=== PATIENT | female | born 1950 | race Caucasian/White ===

== ENCOUNTER → 2016-09-05 | Outpatient (CLI) | payer OTHER ==
[~2016-09-05] MED LIST: ASPCH81X PO; ASTN; ERGO1CAP35 PO; FLX10 PO; IBUP-1105 PO; IMT100 PO; LORA-741 PO; MELO7.5T5 PO; TRAM-10 PO; TRAZ-119 PO; VENL225T27 PO
== END | disposition home or self-care (01) ==
LOC: C.LABBFT 12:13
PROVIDERS: ATTEND Psychiatry & Neurology Neurology
DX: R41.3 Other amnesia (principal)

== ENCOUNTER → 2016-09-16 | Outpatient (CLI) | payer OTHER ==
[~2016-09-16] MED LIST changes: -TRAZ-119 PO; +TRAZ1TAB16 PO
--- NOTE | 2016-09-18 12:34 | MAMMOGRAPHY REPORT ---
BILATERAL DIGITAL SCREENING MAMMOGRAM TOMOSYNTHESIS WITH CAD: 09/16/2016 CLINICAL HISTORY: Routine screening. Patient has no complaints. TECHNIQUE: Breast tomosynthesis in addition to standard 2D mammography was performed. Current study was also evaluated with a Computer Aided Detection (CAD) system. COMPARISON: Comparison is made to exams dated: 09/14/2015 mammogram - [facility], mammogram, 07/21/2013 mammogram, 07/15/2012 mammogram, 06/21/2011 mammogram, and 07/31/2010 mammogra m - [facility]. BREAST COMPOSITION: There are scattered areas of fibroglandular density in both breasts. FINDINGS: There are 2 stable metallic biopsy markers in the right breast. Scattered and grouped leonid ign-appearing microcalcifications are stable bilaterally. No new suspicious mass, architectural dist ortion or cluster of suspicious microcalcifications is seen. IMPRESSION: ACR BI-RADS CATEGORY 1: NEGATIVE There is no mammographic evidence of malignancy. A 1 year screening mammogram is recommended. The pa tient will receive written notification of the results. Approximately 10% of breast cancers are not detected with mammography. A negative mammographic report should not delay biopsy if a clinically suggestive mass is present. Adry Church M.D. ay/:09/16/2016 16:39:38 Analytics Lead: Bambi GONZALEZ)(Pauly)(BD), [facility] letter sent: Normal 1/2 BI-RADS Code: ACR BI-RADS Category 1: Negative
== END | disposition home or self-care (01) ==
LOC: C.MAMM 11:53
PROVIDERS: ATTEND Nurse Practitioner
DX: Z12.31 Encounter for screening mammogram for malignant neoplasm of breast (principal)

== ENCOUNTER → 2016-09-30 | Outpatient (CLI) | payer OTHER ==
--- NOTE | 2016-09-30 10:56 | DIAGNOSTIC IMAGING REPORT ---
RIGHT KNEE 4 OR MORE CLINICAL HISTORY: 66 years-old Female presenting with RIGHT KNEE PAIN Right. TECHNIQUE: Bilateral frontal standing views of the knees and frontal, lateral, and sunrise views of the right knee were obtained. COMPARISON: Correlation made to radiographs of the left knee from March 2015. FINDINGS: On standing, joint spaces are preserved. No malalignment. Tiny ossification along the medial joint space in the left knee may represent chondrocalcinosis of the medial meniscus. No significant osteophytosis or subchondral sclerosis. No significant abnormality of the patellofemoral articulation. No acute fracture. Soft tissues within normal limits. IMPRESSION: 1. No significant abnormality. No acute osseous injury. Electronically signed by: Gera Boone M.D. 09/30/2016 10:55 AM Dictated Date/Time: 09/30/2016 10:52 AM
== END | disposition home or self-care (01) ==
LOC: C.RDSM 10:30
PROVIDERS: ATTEND Internal Medicine
DX: M25.561 Pain in right knee (principal)

== ENCOUNTER → 2017-01-23 | Outpatient (CLI) | payer OTHER ==
[~2017-01-23] VITALS: Ht 149.9 cm; Wt 76.2 kg
[~2017-01-23] MED LIST changes: +TRAZ-119 PO; -TRAZ1TAB16 PO
[2017-01-23 16:01] VITALS: BP 139/81; PULSE 102; Ht 149.9 cm; Wt 76.2 kg
== END | disposition home or self-care (01) ==
LOC: C.NEUR 15:20
PROVIDERS: ATTEND Internal Medicine Pulmonary Disease
DX: G47.33 Obstructive sleep apnea (adult) (pediatric) (principal)

== ENCOUNTER → 2017-02-16 | Outpatient (CLI) | payer OTHER ==
--- NOTE | 2017-02-17 06:11 | PAP/PSG TECHNICIAN REPORT ---
[facility] Area Operations Manager Polysomnogram Report Study name: None Report date: 02/17/2017 Study date: 02/16/2017 Referring Physician: Dr. Pierre Name: DOROTHEA BLEVINS Interpreting Physician: Juan Diego Pierre D.O. Date of : 1950 Area Operations Manager: Madan Rolle RPSGT. Sex: Female Age: 66 StudyType: PSG Weight: 167 lbs 15.5 inches Height: 66 years, Height 4' 11" Neck Circum: BMI: 33.73 Medications: TRAZODONE HCL 50 MG, VENLAFAXINE HCL ER 150 MG, SUMATRIPTAN SUCCINATE 100 MG, CARBAMAZEPINE 100 MG, PREDNISONE 20 MG, OXYBUTYNIN CHLORIDE ER 10 MG, CLINDAMYCIN HCL 150 MG Patient History PATIENT HAS HISTORY OF MIRANDA, SNORING, DAYTIME SLEEPINESS AND RESTLESSNESS. SHE WAS DIAGNOSED WITH MIRANDA AROUND 6 YEARS AGO AND SHE WAS ON CPAP FOR ABOUT 2 YEARS. SHE QUIR USING IT BECAUSE IT BECAME A HASSLE. SHE IS HERE TODAY FOR AN EVALUATION FOR MIRANDA. ESS = 11 RM 7 Parameters Monitored NPSG: E1-M2, E2-M1, Fp1-M2, Fp2-M1, F3-M2, F4-M2, F4-M1, C3-M2, C4-M2, C4-M1, O1-M2, O2-M2, O2-M1, T3-M2, T4-M1, P3-M2, P4-M1, CHIN1, CHIN2, HR, EKG, Legs, PFLOW, SNOR, FLOW, CFLOW, Tidal Volume, THOR, ABDO, SpO2, PLTH, CPRESS, ETCO2 Wave, ETCO2, pH Sleep Architecture Sleep Stages Time at Lights Off 10:45:00 PM STAGES Time (min.) TST (%) Time at Lights On 5:43:00 AM Wake 151.0 -- Total Recording Time (TRT) 419.00 min. N1 21.5 8 Total Sleep Period (TSP) 358.5 min. N2 210.0 79 Total Sleep Time (TST) 267.0min. N3 35.5 13 Awake Time 152.0 min. REM 0.0 0 Wake after Sleep Onset 93.0 min. Sleep Efficiency (SE) 64 % Sleep Onset Latency (LILA) 58.0 min. Number of Stage 1 Shifts None Awakenings 16 Stage Changes 49 Number of REM periods N/A REM 0.0 0 REM Latency NONE min. NREM 267.0 100 Body Position Analysis Supine Right Left Side Prone Vertical Total Sleep Time (min.) 79.7 101.5 132.0 233.50 0.0 0.0 Total Sleep Time (%) 13% 38% 49% 87 0% N/A% Total Sleep Time REM (min.) 0.0 0.0 0.0 None 0.0 0.0 Total Sleep Time NREM (min.) 33.5 101.5 132.0 None 0.0 0.0 Intermittent Wake (min.) 46.2 28.4 76.4 None 0.0 0.0 Total Sleep Period (%) 19% None None None None None Arousals Myoclonus (PLM) * Events Count Index Events Count Index Spontaneous 23 5 Events Awake (PLMW) 34 13.5 Respiratory 0 0.0 Events Asleep w/ Arousal (PLMA) 0 0.0 PLM 0 0 Events Asleep w/o Arousal (PLMS) 1 0.2 Snoring 2 0 Total Asleep 1 0.2 Total 25 6 Total 35 5 Respiratory Analysis * CA OA MA CH H RERA Total Count 1 0 0 0 2 0 3 Index 0.2 0.0 0.0 0 0.4 0 0.7 Mean Duration 17.8 0.0 0.0 0.00 16.6 0.0 17.0 Longest Duration 17.8 0.0 0.0 0.00 0.0 0.0 21.7 Respiratory Event Summary Total Supine ~Supine Right Left Prone REM NREM Apneas Count 1 1 0 0 0 N/A N/A 1 Index 0.2 2 0 0.0 0.0 N/A N/A 0 Hypopneas (4% Desat) Count 2 2 0 0 0 N/A N/A 2 Index 0.4 3.6 0 0.0 0.0 N/A N/A 0.4 Apneas & All Hypopneas Count 3 3 0 0 0 N/A N/A 3 Index 0.7 5 0 0 0 N/A N/A 0.7 Respiratory Events (Hydraulic Jack Mechanic+All Hyp+RERA) Count 3 3 0 0 0 N/A N/A 3 Index 0.7 5 0 0.0 0.0 N/A N/A 0.7 Respiratory Related Arousal Count 0 3 0 0 0 N/A N/A 0 Index 0.0 0 0 0 0 N/A N/A 0 Snoring Analysis Supine Right Left Prone REM NREM Total Snore duration 1.5 min Snores count 64 3 22 N/A N/A 89 89 Snore mean duration 1.0 Sec Snores index 115 2 10 N/A N/A 20.0 20.0 TST with snoring (%) 0.6% Desaturation Event Summary: Minimum %SpO2 Event Count Mean/Min/Max Duration(sec.) Desaturation Index % Time In Bed > 90 15 36.6 / 16.8 / 56.5 3.5 62.2 86 - 90 2 43.8 / 31.0 / 56.5 0.8 37.8 81 - 85 0 N/A 0.0 0.0 76 - 80 0 N/A 0.0 0.0 71 - 75 0 N/A 0.0 0.0 66 - 70 0 N/A 0.0 0.0 61 - 65 0 N/A 0.0 0.0 56 - 60 0 N/A 0.0 0.0 51 - 55 0 N/A 0.0 0.0 < 50 0 N/A 0.0 0.0 Total REM NREM Awake <50% 0.0 min. 0.0 min. 0.0 min. 0.0 min. 51 - 60% 0.0 min. 0.0 min. 0.0 min. 0.0 min. 61 - 70% 0.0 min. 0.0 min. 0.0 min. 0.0 min. 71 - 80% 0.0 min. 0.0 min. 0.0 min. 0.0 min. 81 - 90% 154.2 min. 0.0 min. 121.6 min. 32.7 min. 91 - 100% 254.3 min. 0.0 min. 145.4 min. 108.8 min. Average 91 0 91 92 Minimum SpO2 86 N/A 87 86 Desaturation Event Index 2.2 0.0 0.2 5.6 # Desat. Events below 89% 3 N/A 0 3 Time(%) with Saturation below 89% 3.8 0.0 3.2 0.7 Time(min.) with Saturation below 89% 15.6 0.0 13.0 2.7 Time (mins) REM (mins) NREM (mins) % of TST SpO2 Below 90% 1 N/A N1 19.7 SpO2 Below 88% 1 0 0 0 Heart Rate Analysis Min (bpm) Max (bpm) Average (bpm) Awake 59 84 70 NREM 58 77 67 REM N/A N/A N/A Overall 58 77 67 Supplemental O2 Values Minimum O2 level: None Value Start Time End Time Area Operations Manager Comments Ms. Blevins slept in the right, left and supine positions. No cardiac arrhythmia noted. Leg movements noted. No bruxism noted. Snoring was noted and scored as a 2 on a scale of 1 through 5. (0=no snoring, 5=snoring loud enough to be heard through a closed door or down the finn way) Ms. Blevins awoke to use the restroom 2 times during the night. Ms. Blevins stated I slept as well as I do when I am in my own bed. The final report will be interpreted and signed by a sleep physician. The completed physician report will then be placed in the patient medical record. Therapy (cm H2O) 0 TIB (min.) 418.0 TST (min.) 267.0 Sleep Onset (min.) 58.0 REM Onset From Sleep (min.) NONE Sleep Efficiency % 64 Wakefulness (%) 36 Wakefulness (min.) 152.0 NREM 1 (%) 8 NREM 1 (min.) 21.5 NREM 2 (%) 79 NREM 2 (min.) 210.0 NREM 3 (%) 13 NREM 3 (min.) 35.5 REM (%) 0 REM (min.) 0.0 # Arousals 25 Arousal Index 6 # Snore 89 Snore Index 20.0 AHI 0.7 AHI Supine 5 AHI Non-Supine 0 NREM AHI 0.7 REM AHI N/A RDI 0.7 # Obstructive Apnea 0 # Central Apnea 1 # Mixed Apnea 0 # Hypopneas 2 RERAs 0 Total Respiratory Events 3 Time Below SpO2 89% (min.) 13.0 Mean NREM SpO2 (%) 91 Mean REM SpO2 (%) N/A Mean Sleep SpO2 (%) 91 Min NREM SpO2 (%) 87 Min REM SpO2 (%) N/A Position Supine (min.) 79.7 Position Non-supine (min.) 233.5 LM Index Sleep 0.2 LM Index NREM 0.2 LM Index REM N/A Mean Heart Rate (bpm) 67 Min Heart Rate (bpm) 58
--- NOTE | 2017-02-19 17:56 | Sleep Study ---
Sleep Study Report Date of Service: 02/16/2017 Sleep Study Report Clinical data: The patient is a 66-year-old female who had a history of sleep apnea in the past. She was on nasal CPAP for 2 years but she never got comfortable with it. She has snoring, disturbed nocturnal sleep, and difficulty with concentration. Her [place] score is 4 out of a possible 24. She also has a history of a nocturnal eating disorder, eating food at night and having no recall of doing so. This was an in-lab overnight polysomnography. Sleep architecture: The total sleep period was 385.5 minutes. The total sleep time was 267 minutes. The sleep efficiency was moderately reduced to 64 percent. The sleep latency was prolonged to 58 minutes. Wake after sleep onset was increased to 93 minutes. Sleep consisted of stage N1 8 percent, stage N2 79 percent, stage N3 13 percent , stage REM 0 percent. Arousal data: The patient had a total of 25 arousals including 23 spontaneous arousals and 2 snoring arousals. The arousal index is 6. PLM data: The patient had only 1 periodic limb movement of sleep for a PLM index of 0.2. There were 0 arousals. EKG: The underlying cardiac rhythm was normal sinus. The cardiac rates 58-77 beats per minute. No cardiac arrhythmia was noted. Respiratory data: Patient had a total of 3 respiratory events including 1 central apnea and 2 hypopneas. The apnea was 17.8 seconds in length. The mean duration of the hypopneas was 16.6 seconds. Hypopneas were scored according to the 4 percent desaturation rule. The apnea-hypopnea index was normal at 0.7. This would suggest no significant sleep apnea. Oximetry data: The average saturation for the night was 91 percent. The minimum saturation was 86 percent. There was a total of 15.6 minutes with saturations less than 89 percent. Lumber Stacker Operator comments: The patient slept in the right, left, and supine positions. No cardiac arrhythmia noted. No bruxism noted. Snoring was noted and scored as a 2 on a scale of 1 through 5. Impressions: 1. Primary snoring Comments: Patient has a history of sleep apnea in the past. She did not have any significant sleep apnea during this overnight polysomnography. She did have a moderately decreased sleep efficiency related to a markedly prolonged sleep onset and she had an episode of wake during the night lasting from 1:30 a.m. until 2:33 a.m.. Otherwise her sleep was fairly well consolidated. It is notable she had an increase in stage N2 sleep and there was no REM sleep at all. It may be notable that the patient does take venlafaxine which can suppress REM sleep. The cause of the patient's symptoms are unknown. She does have a history of long-term insomnia. It is unknown if this is related to any underlying anxiety or depression which is given in her history. Recommendations: 1. The patient should continue with her weight loss efforts. 2. The patient should have a more regular sleep-wake schedule. Her sleep habits and sleep hygiene are suboptimal. She has a variable time of going to bed. It is suggested that she have a regular schedule and allowing approximately 8 hours of sleep time. 3. It is suggested that the patient avoid sleeping in the supine position. 4. She does not need any specific therapy for sleep apnea in light of the fact she did not have any significant sleep apnea during the study. Copies To 1: Juan Diego Pierre DO; Gretchen Howard, C.R.N.P.; Delfina Berg M.D.
== END | disposition home or self-care (01) ==
LOC: C.NEUR 20:00
PROVIDERS: ATTEND Internal Medicine Pulmonary Disease
DX: G47.33 Obstructive sleep apnea (adult) (pediatric) (principal)

== ENCOUNTER → 2017-02-19 | Outpatient (CLI) | payer OTHER ==
--- NOTE | 2017-02-19 09:43 | DIAGNOSTIC IMAGING REPORT ---
R KNEE 3 VIEWS HISTORY: 66 years-old Female BILATERAL KNEE PAIN S/P FALL acute bilateral knee pain status post fall COMPARISON: Knee radiographs 09/30/2016 TECHNIQUE: Stating AP view of the bilateral knees with sunrise, tunnel and lateral views. FINDINGS: RIGHT: There is mild medial and lateral with mild to moderate patellofemoral osteoarthritis. There is no acute fracture or dislocation identified. No osteochondral defect. Trace knee joint effusion suspected. LEFT: Trace joint effusion suspected. Tiny ossification adjacent to the medial femoral condyles again seen suspicious for possible chondrocalcinosis. No acute fracture or dislocation. There is mild medial and lateral with mild to moderate patellofemoral osteoarthritis. IMPRESSION: 1. No acute fracture or dislocation identified within either knee. 2. 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 3. Trace joint effusions. The above report was generated using voice recognition software. It may contain grammatical, syntax or spelling errors. Electronically signed by: Jovanni Haynes M.D. 02/19/2017 9:42 AM Dictated Date/Time: 02/19/2017 9:39 AM
== END | disposition home or self-care (01) ==
LOC: C.RDSM 12:58
PROVIDERS: ATTEND Internal Medicine
DX: M25.561 Pain in right knee (principal); M25.562 Pain in left knee

== ENCOUNTER → 2017-02-25 | Outpatient (CLI) | payer OTHER ==
--- NOTE | 2017-02-25 13:00 | DIAGNOSTIC IMAGING REPORT ---
L-SPINE MIN 4 VIEWS ROUTINE HISTORY: 66 years-old Female R26.9 Gait [id number] Low back pain acute low back pain COMPARISON: Lumbar spine radiographs 02/16/2015 TECHNIQUE: 5 views of the lumbar spine FINDINGS: 5 nonrib-bearing lumbar type vertebral segments. No spondylolysis or spondylolisthesis. 40% anterior endplate compression deformity of the T11 vertebral body is noted without significant retropulsion identified. This is unchanged from comparison compatible with chronic injury. No acute compression deformity or subluxation. Mild intervertebral disc space narrowing at L3-L4, L4-L5 and L5-S1 with mild to moderate facet arthrosis and mild endplate spurring. IMPRESSION: 1. Remote 40% anterior endplate compression deformity of the T11 vertebral body appears unchanged from comparison study. 2. No acute fracture or subluxation. 3. Degenerative changes of the lower lumbar spine as above. The above report was generated using voice recognition software. It may contain grammatical, syntax or spelling errors. Electronically signed by: Jovanni Haynes M.D. 02/25/2017 12:59 PM Dictated Date/Time: 02/25/2017 12:57 PM
== END | disposition home or self-care (01) ==
LOC: C.RAD 12:18
PROVIDERS: ATTEND Psychiatry & Neurology Neurology
DX: M54.5 Low back pain (principal); R26.9 Unspecified abnormalities of gait and mobility

== ENCOUNTER → 2017-02-28 | Outpatient (CLI) | payer OTHER ==
[2017-02-28 17:10] LABS: HEMATOCRIT 38.1 % (37-47); MEAN CELL VOLUME 90.3 fL (80-100); MEAN CORPUSCULAR HEMOGLOBIN 29.1 pg (25-34); MEAN CORPUSCULAR HGB CONC 32.3 g/dl (32-36); MEAN PLATELET VOLUME 10.5 fL (7.4-10.4); PLATELET COUNT 298 K/uL (130-400); RED BLOOD COUNT 4.22 M/uL (4.2-5.4); WHITE BLOOD COUNT 4.14 K/uL (4.8-10.8)
[2017-02-28 17:11] LABS: ALT/SGPT 20 U/L (12-78); BLOOD UREA NITROGEN 27 mg/dl (7-18); BUN/CREATININE RATIO 32.9 (10-20); CALCIUM 8.9 mg/dl (8.5-10.1); CARBON DIOXIDE 22 mmol/L (21-32); CHLORIDE 110 mmol/L (98-107); CHOLESTEROL 151 mg/dl (0-200); CREATININE 0.81 mg/dl (0.60-1.20); GLUCOSE 98 mg/dl (70-99); POTASSIUM 3.9 mmol/L (3.5-5.1); SODIUM 141 mmol/L (136-145)
[2017-02-28 17:14] LABS: ALB/GLOB RATIO 1.1 (0.9-2); ALKALINE PHOSPHATASE 64 U/L (45-117); AST/SGOT 14 U/L (15-37); CHOLESTEROL/HDL RATIO 1.8; HDL CHOLESTEROL 83 mg/dl; LDL CHOLESTEROL CALCULATED 59 mg/dl; TRIGLYCERIDES 46 mg/dl (0-150); VERY LOW DENSITY LIPOPROT CALC 9 mg/dl
[2017-03-01 06:38] LABS: ESTIMATED AVERAGE GLUCOSE 117 mg/dl; HA1C FLAG Normal (Normal)
== END | disposition home or self-care (01) ==
LOC: C.LABBFT 11:41
PROVIDERS: ATTEND Nurse Practitioner
DX: E78.5 Hyperlipidemia, unspecified (principal); E55.9 Vitamin D deficiency, unspecified; T81.89XD Other complications of procedures, not elsewhere classified, subsequent encounter; X58.XXXD Exposure to other specified factors, subsequent encounter

== ENCOUNTER → 2017-04-25 | Outpatient (CLI) | payer OTHER ==
[~2017-04-25] MED LIST changes: +EFFSR150 PO; +FLUT0.15 INH; +LMC25 PO; +OPTIRAY 320 IV PRN
--- NOTE | 2017-04-25 15:31 | DIAGNOSTIC IMAGING REPORT ---
(CHEST FOR PE) ANGIO WITH CLINICAL HISTORY: 67 years-old Female presenting with chest pain, shortness of breath, chest tightness. TECHNIQUE: Multidetector CT angiography of the chest was performed after administration of intravenous contrast. 3-D volumetric and/or maximum intensity projection (MIP) images were subsequently reconstructed for review. IV contrast: 93 mL of Optiray 320. A dose lowering technique was used consistent with the principles of ALARA (as low as reasonably achievable). COMPARISON: None. CT DOSE (mGy.cm): The estimated cumulative dose is 383.12 mGycm. FINDINGS: Onion Farmer topogram: Unremarkable. Pulmonary vasculature: The study is adequate for assessment of the pulmonary vascular tree. No filling defect within the pulmonary arteries to suggest embolus. Main pulmonary artery is not enlarged and contains gas likely from injection. No flattening of the interventricular septum. No intracardiac filling defect. No reflux of contrast into the hepatic veins. Remaining chest: On soft tissue windows, normal thyroid and thoracic inlet. No axillary, supraclavicular, hilar, or mediastinal lymphadenopathy. Normal aorta. Normal heart size. No pericardial or pleural effusion. Few subcentimeter lesion suspected in the liver, indeterminate but possibly hepatic cysts or hamartomas. On lung windows, minimal dependent changes likely atelectasis. Mosaic attenuation noted at the lung bases possibly indicating small airways disease. Mild bronchial wall thickening predominantly in the lower lobes. No other focal nodule or infiltrate. Airways patent. On bone windows, normal osseous structures. IMPRESSION: 1. No evidence of pulmonary embolus. No acute intrathoracic pathology. 2. Small airways disease may be present. Electronically signed by: Gera Boone M.D. 04/25/2017 3:30 PM Dictated Date/Time: 04/25/2017 3:25 PM
== END | disposition home or self-care (01) ==
LOC: C.CTS 14:38
PROVIDERS: ATTEND Physician Assistant Medical
DX: R06.02 Shortness of breath (principal)

== ENCOUNTER 2017-04-28 19:28 | Emergency (ER) | payer OTHER ==
[~2017-04-28] VITALS: Ht 149.9 cm; Wt 74.8 kg
[~2017-04-28 19:28] MED LIST changes: -EFFSR150 PO; -FLUT0.15 INH; -LMC25 PO
[2017-04-28 20:13] VITALS: TEMP 36.7; Ht 149.9 cm; Wt 74.8 kg
[2017-04-28] MEDS ORDERED: KETOROLAC TROMETHAMINE 30 MG/ML VIAL IV STA (20:46)
[2017-04-28] MEDS ORDERED: FLUT0.15 INH (21:08)
[2017-04-28] MEDS ORDERED: EFFSR150 PO (21:19)
[2017-04-28] MEDS ORDERED: LMC25 PO (21:19)
[2017-04-28] MEDS ORDERED: SODIUM CHLORIDE 0.9% 500ML 500 ML IV STA (21:53)
[2017-04-28 22:05] LABS: BASO % 0.5 %; BASO ABS # 0.03 K/uL (0-0.2); EOS % 2.3 %; EOS ABS # 0.14 K/uL (0-0.5); HEMATOCRIT 42.7 % (37-47); HEMOGLOBIN 14.2 g/dL (12.0-16.0); IG# 0.02 K/uL (0.00-0.02); LYMPH % 24.5 %; MEAN CORPUSCULAR HEMOGLOBIN 29.3 pg (25-34); MEAN CORPUSCULAR HGB CONC 33.3 g/dl (32-36); MEAN PLATELET VOLUME 9.9 fL (7.4-10.4); MONO % 12.3 %; MONO ABS # 0.75 K/uL (0.11-0.59); NEUT % 60.1 %; NEUT ABS # 3.68 K/uL (1.4-6.5); PLATELET COUNT 290 K/uL (130-400); RED CELL DISTRIBUTION WIDTH CV 12.9 % (11.5-14.5); RED CELL DISTRIBUTION WIDTH SD 41.3 fL (36.4-46.3); WHITE BLOOD COUNT 6.12 K/uL (4.8-10.8)
[2017-04-28 22:21] LABS: PTT PATIENT 25.5 SECONDS (21.0-31.0)
[2017-04-28 22:22] LABS: BLOOD UREA NITROGEN 25 mg/dl (7-18); CALCIUM 9.6 mg/dl (8.5-10.1); CARBON DIOXIDE 28 mmol/L (21-32); CREATININE 0.77 mg/dl (0.60-1.20); GLUCOSE 116 mg/dl (70-99); POTASSIUM 3.6 mmol/L (3.5-5.1); SODIUM 136 mmol/L (136-145)
--- NOTE | 2017-04-28 22:45 | DIAGNOSTIC IMAGING REPORT ---
R VENOUS DOPP LOWER EXT UNILAT HISTORY: 67 years-old Female rle swelling acute swelling of the right lower extremity COMPARISON: CTA of the chest 04/25/2017 TECHNIQUE: Multiple real-time sonographic images of the right lower extremity deep venous structures were obtained assessing grayscale appearance, color and spectral flow FINDINGS: There is normal flow, phasicity, compressibility and augmentation of the right lower extremity deep venous structures. IMPRESSION: No sonographic evidence of deep venous thrombosis. The above report was generated using voice recognition software. It may contain grammatical, syntax or spelling errors. Electronically signed by: Jovanni Haynes M.D. 04/28/2017 10:43 PM Dictated Date/Time: 04/28/2017 10:42 PM
--- NOTE | 2017-04-28 22:50 | DIAGNOSTIC IMAGING REPORT ---
CHEST ONE VIEW PORTABLE HISTORY: 67 years-old Female cp acute atypical chest pain COMPARISON: CTA of the chest 04/25/2017, chest radiograph 02/01/2015 TECHNIQUE: Portable AP view of the chest FINDINGS: Cardiomediastinal and hilar silhouettes are within normal limits. There is no pneumothorax, pleural effusion, focal airspace consolidation or overt pulmonary edema. Linear subsegmental atelectasis/scarring of the left lung base redemonstrated. Bones of the chest appear grossly intact. IMPRESSION: No acute process. The above report was generated using voice recognition software. It may contain grammatical, syntax or spelling errors. Electronically signed by: Jovanni Haynes M.D. 04/28/2017 10:48 PM Dictated Date/Time: 04/28/2017 10:47 PM
--- NOTE | 2017-04-28 22:57 | EMERGENCY ROOM VISIT NOTE ---
History Report prepared by Smita: Franklin Braswell Under the Supervision of: Maryam IveyO. First contact with patient: 20:32 Chief Complaint: LEG PAIN,LEG INJURY Stated Complaint: POSSIBLE BLOOD CLOT, THROBBING, SMALL BLOOD BREAK History of Present Illness The patient is a 67 year old female who presents to the Emergency Room with complaints of constant right leg pain starting around 1600 today. She currently rates her discomfort as a 5/10 in severity. The patient states that the pain is in the back of her calf, and she states that the skin feels hot and felt like it was "dancing". She notes that she is concerned that she may have a DVT. The patient states that she got back from [place] on the . She got a CTA on 04/25/17, and she did not have any PEs. She states that she has not done anything out of the ordinary or lifting anything. She additionally states that she has been having persistent chest pressure since the and is having a dry cough, coarse voice, sore throat, and runny nose. She was evaluated by her primary care doctor for this. Chest pain is reproducible along the anterior chest wall. She notes it feels like a muscle pain. She states that nothing makes the pain better or worse with the exception of when she touches her pushes on her anterior chest, and she denies any diabetes, hypertension, hyperlipidemia, or CAD. Denies any arm or jaw pain. Pt denies headache, change in vision, fevers, shortness of breath, nausea, vomiting, diarrhea, pain with urination, and melena. No previous history of MIs. Source of History: patient Onset: 1600 Position: leg (right) Symptom Intensity: 5/10 Timing: constant Associated Symptoms: + chest pain, No SOB, No nausea, No vomiting Review of Systems See HPI for pertinent positives & negatives. A total of 10 systems reviewed and were otherwise negative. Past Medical & Surgical Medical Problems: (1) History of colon polyps (2) Migraine headache (3) Mitral valve prolapse (4) Sleep apnea Surgical Problems: (1) History of uterine fibroid (2) Status post colonoscopy (3) Status post tubal ligation Family History Cervical cancer SISTER Diabetes mellitus FATHER Heart disease FATHER Hypertension FATHER Social History Smoking Status: Never Smoker Alcohol Use: occasionally Marital Status: single, Housing Status: lives alone Occupation Status: retired Current/Historical Medications Scheduled Fluticasone Propionate (Nasal) (Flonase Allergy Relief), 1-2 SPRAYS INH BID Lamotrigine (Lamotrigine), 25 MG PO HS Lorazepam (Ativan), 0.5 MG PO HS Meloxicam (Mobic), 7.5 MG PO DAILY Sumatriptan Succinate (Imitrex), 100 MG PO PRN Trazodone Hcl (Desyrel), 50-100 MG PO HS Venlafaxine Hcl (Effexor Extended Rel), 150 MG PO DAILY Allergies Coded Allergies: Sulfa Antibiotics (Verified Allergy, Severe, HIVES/SOB, 04/28/17) Amoxicillin (Verified Allergy, Intermediate, HIVES, 04/28/17) Penicillins (Verified Allergy, Intermediate, RASH, 04/28/17) Procaine (Verified Adverse Reaction, Intermediate, TACHYCARDIA, 07/10/16) Adhesives (Verified Adverse Reaction, Mild, RASH/BURN, 04/28/17) Physical Exam Vital Signs Date Time Temp Pulse Resp B/P (MAP) Pulse Ox O2 Delivery O2 Flow Rate FiO2 04/28/17 22:03 77 16 99 04/28/17 22:01 171/111 04/28/17 21:48 83 14 99 04/28/17 21:43 175/100 04/28/17 21:33 82 17 04/28/17 21:18 83 19 99 04/28/17 21:03 80 13 100 04/28/17 20:48 85 17 100 04/28/17 20:33 96 18 98 04/28/17 20:28 92 17 148/91 98 Room Air 04/28/17 20:13 36.7 98 18 162/92 99 Room Air Physical Exam GENERAL: Sitting up in bed, alert, well appearing, well nourished, no distress, non-toxic EYE EXAM: normal conjunctiva. OROPHARYNX: no exudate, no erythema, lips, buccal mucosa, and tongue normal and mucous membranes are moist NECK: supple, no nuchal rigidity, no adenopathy, non-tender LUNGS: Clear to auscultation. Normal chest wall mechanics HEART: no murmurs, S1 normal and S2 normal CHEST: Reproducible anterior sternal chest pain same as the stated complaint. ABDOMEN: abdomen soft, non-tender, normo-active bowel sounds, no masses, no rebound or guarding. BACK: Back is symmetrical on inspection and there is no deformity, no midline tenderness, no CVA tenderness. SKIN: no rashes and no bruising UPPER EXTREMITIES: upper extremities are grossly normal. LOWER EXTREMITIES: Calves are equal bilaterally. DP 2/4. No pitting edema. NEURO EXAM: Normal sensorium, cranial nerves II-XII grossly intact, normal speech, no gross weakness of arms, no gross weakness of legs. Medical Decision & Procedures ER Provider Diagnostic Interpretation: Radiology results as stated below per my review and the radiologist's interpretation: R VENOUS DOPP LOWER EXT UNILAT HISTORY: 67 years-old Female rle swelling acute swelling of the right lower extremity COMPARISON: CTA of the chest 04/25/2017 TECHNIQUE: Multiple real-time sonographic images of the right lower extremity deep venous structures were obtained assessing grayscale appearance, color and spectral flow FINDINGS: There is normal flow, phasicity, compressibility and augmentation of the right lower extremity deep venous structures. IMPRESSION: No sonographic evidence of deep venous thrombosis. The above report was generated using voice recognition software. It may contain grammatical, syntax or spelling errors. Electronically signed by: Jovanni Haynes M.D. 04/28/2017 10:43 PM CHEST ONE VIEW PORTABLE HISTORY: 67 years-old Female cp acute atypical chest pain COMPARISON: CTA of the chest 04/25/2017, chest radiograph 02/01/2015 TECHNIQUE: Portable AP view of the chest FINDINGS: Cardiomediastinal and hilar silhouettes are within normal limits. There is no pneumothorax, pleural effusion, focal airspace consolidation or overt pulmonary edema. Linear subsegmental atelectasis/scarring of the left lung base redemonstrated. Bones of the chest appear grossly intact. IMPRESSION: No acute process. The above report was generated using voice recognition software. It may contain grammatical, syntax or spelling errors. Electronically signed by: Jovanni Haynes M.D. 04/28/2017 10:48 PM Laboratory Results 04/28/17 21:53 Red Blood Count 4.85, Mean Corpuscular Volume 88.0, Mean Corpuscular Hemoglobin 29.3, Mean Corpuscular Hemoglobin Concent 33.3, Mean Platelet Volume 9.9, Neutrophils (%) (Auto) 60.1, Lymphocytes (%) (Auto) 24.5, Monocytes (%) (Auto) 12.3, Eosinophils (%) (Auto) 2.3, Basophils (%) (Auto) 0.5, Neutrophils # (Auto ) 3.68, Lymphocytes # (Auto) 1.50, Monocytes # (Auto) 0.75, Eosinophils # (Auto ) 0.14, Basophils # (Auto) 0.03 04/28/17 21:53 Test 04/28/17 21:53 White Blood Count 6.12 K/uL (4.8-10.8) Red Blood Count 4.85 M/uL (4.2-5.4) Hemoglobin 14.2 g/dL (12.0-16.0) Hematocrit 42.7 % (37-47) Mean Corpuscular Volume 88.0 fL (80-100) Mean Corpuscular Hemoglobin 29.3 pg (25-34) Mean Corpuscular Hemoglobin Concent 33.3 g/dl (32-36) Platelet Count 290 K/uL (130-400) Mean Platelet Volume 9.9 fL (7.4-10.4) Neutrophils (%) (Auto) 60.1 % Lymphocytes (%) (Auto) 24.5 % Monocytes (%) (Auto) 12.3 % Eosinophils (%) (Auto) 2.3 % Basophils (%) (Auto) 0.5 % Neutrophils # (Auto) 3.68 K/uL (1.4-6.5) Lymphocytes # (Auto) 1.50 K/uL (1.2-3.4) Monocytes # (Auto) 0.75 K/uL (0.11-0.59) Eosinophils # (Auto) 0.14 K/uL (0-0.5) Basophils # (Auto) 0.03 K/uL (0-0.2) RDW Standard Deviation 41.3 fL (36.4-46.3) RDW Coefficient of Variation 12.9 % (11.5-14.5) Immature Granulocyte % (Auto) 0.3 % Immature Granulocyte # (Auto) 0.02 K/uL (0.00-0.02) Prothrombin Time 10.2 SECONDS (9.0-12.0) Prothromb Time International Ratio 1.0 (0.9-1.1) Activated Partial Thromboplast Time 25.5 SECONDS (21.0-31.0) Partial Thromboplastin Ratio 1.0 Anion Gap 7.0 mmol/L (3-11) Est Creatinine Clear Calc Drug Dose 63.4 ml/min Estimated GFR () 93.3 Estimated GFR (Non- 80.5 BUN/Creatinine Ratio 31.8 (10-20) Calcium Level 9.6 mg/dl (8.5-10.1) Troponin I < 0.015 ng/ml (0-0.045) Laboratory results per my review. Medications Administered Medications (Trade) Dose Ordered Sig/Seble Route Start Time Stop Time Status Last Admin Dose Admin Ketorolac Tromethamine (Toradol Inj) 30 mg NOW STAT IV 04/28/17 20:46 04/28/17 20:48 DC 04/28/17 21:50 30 MG Sodium Chloride 500 ml @ 999 mls/hr Q31M STAT IV 04/28/17 21:53 04/28/17 22:23 DC 04/28/17 22:10 999 MLS/HR ECG Indication: chest pain Rate (beats per minute): 78 Rhythm: sinus rhythm Findings: T-wave inversion (Lead V2 and V3), left axis deviation, no ectopy Comparison ECG Date: 11/23/14 Change: no significant change Change: Patient's electrocardiogram interpreted by me. ED Course ED COURSE: Vital signs were reviewed and showed hypertension The patients medical record was reviewed The above diagnostic studies were performed and reviewed. ED treatments and interventions as stated above. 2031: The patient was evaluated in room C2. A complete history and physical examination was performed. 2045: Toradol 30mg IV 2152: Sodium Chloride 500 ml @ 999 mls/hr IV 0: Upon reevaluation, the patient is doing well.I discussed my findings with the patient and she understands and agrees with the treatment plan. Based on the patients age, coexisting illnesses, exam and lab findings the decision to treat as an outpatient was made. The patient remained stable while under my care. The patient appeared well at the time of discharge. Medical Decision Differential diagnosis: Etiologies such as DVT, musculoskeletal, infection, joint effusion, trauma, lymphedema, idiopathic, CHF, acute coronary syndrome, myocardial infarction, pericarditis, pulmonary embolus, aortic dissection, pneumonia, pneumothorax, musculoskeletal, shingles, esophageal. Patient is a 67-year-old female who presents to ER for right lower extremity pain which started around 4 PM tonight. She is concerned that she had a DVT as she had recent travel toe stridor. On the eighth of this month she had a CT PE to rule out any blood clots as she was having chest pain and has had chest pain since 6 of this month. She notes the chest pain is reproducible on her anterior sternum. It does not worsen with exertion. No arm or jaw pain. No shortness of breath or nausea. On my exam her pain is completely reproducible. Troponin was negative with pain present for longer than 8 hours. EKG unremarkable. Duplex of her right lower extremity without clot. CBC and BMP unremarkable. Patient was given Toradol and had improvement of her symptoms. She is discharged follow-up with PCP as an outpatient. Discussed with Pt concerning signs and symptoms to watch out for. Pt was instructed to follow up with their PCP and discussed with the patient their option to return to the ED at anytime for persistent or worsening symptoms. The appropriate anticipatory guidance and out-patient management, including indications for return to the emergency department, were explained at length to the patient and understood. Medication Reconcilliation Current Medication List: was personally reviewed by me Blood Pressure Screening Patient's blood pressure: Elevated blood pressure Blood pressure disposition: Elevated BP felt to be situational Impression Primary Impression: Leg pain, right Additional Impression: Chest wall pain Scribe Attestation The scribe's documentation has been prepared under my direction and personally reviewed by me in its entirety. I confirm that the note above accurately reflects all work, treatment, procedures, and medical decision making performed by me. Departure Information Dispostion Home / Self-Care Referrals Gretchen Howard, C.R.N.P. (PCP) Forms HOME CARE DOCUMENTATION FORM, IMPORTANT VISIT INFORMATION Patient Instructions ED Chest Pain Costochondritis, Leg Low Back Pain Poss Causes, My [facility] Order Mapper Additional Instructions Please follow up with your primary care doctor with in the next 24 hours. Any worsening of your symptoms, please return to the ED immediately. This includes any fevers greater than 100.4, worsening pain, chest pain, shortness breath, persistent nausea, vomiting, unable to eat or drink, or any other concerning signs or symptoms from your standpoint. Please take Tylenol or Motrin as needed for pain. Problem Qualifiers
[2017-04-28 23:18] VITALS: BP 145/90; PULSE 82; O2SAT 100
== END 2017-04-28 23:22 | disposition home or self-care (01) ==
LOC: C.EDB 19:29 → C.EDC 23:22
DX: M79.604 Pain in right leg (principal); R07.89 Other chest pain; G43.909 Migraine, unspecified, not intractable, without status migrainosus; I34.1 Nonrheumatic mitral (valve) prolapse; G47.30 Sleep apnea, unspecified; Z98.51 Tubal ligation status; Z83.3 Family history of diabetes mellitus; Z82.49 Family history of ischemic heart disease and other diseases of the circulatory system; Z80.49 Family history of malignant neoplasm of other genital organs

== ENCOUNTER → 2017-04-28 | Outpatient (CLI) | payer OTHER ==
[~2017-04-28] MED LIST changes: -OPTIRAY 320 IV PRN
== END | disposition home or self-care (01) ==
LOC: C.LAB 09:00
PROVIDERS: ATTEND Psychiatry & Neurology Neurology
DX: G62.9 Polyneuropathy, unspecified (principal); R73.02 Impaired glucose tolerance (oral)

== ENCOUNTER 2017-05-15 14:12 | Emergency (ER) | payer OTHER ==
[~2017-05-15] VITALS: Ht 149.9 cm; Wt 74.0 kg
[~2017-05-15 14:12] MED LIST changes: -ASPCH81X PO; -ASTN; -ERGO1CAP35 PO; +FLUT0.15 INH; -FLX10 PO; -IBUP-1105 PO; -IMT100 PO; -TRAM-10 PO; -VENL225T27 PO
[2017-05-15 14:14] VITALS: TEMP 36.4; Ht 149.9 cm; Wt 74.0 kg
[2017-05-15] MEDS ORDERED: ACETAMINOPHEN 500 MG TAB PO STA (14:42)
[2017-05-15] MEDS ORDERED: OXYCODONE HCL IR 5 MG TAB (IMMEDIATE RELEASE) PO STA (14:42)
--- NOTE | 2017-05-15 15:44 | DIAGNOSTIC IMAGING REPORT ---
RIGHT LOWER EXTREMITY VENOUS DOPPLER CLINICAL HISTORY: Right lower extremity pain. COMPARISON STUDY: Right lower extremity venous Doppler April 28, 2017. TECHNIQUE: Sonography of the deep venous system of the right lower extremity was performed. Compression and augmentation were evaluated. FINDINGS: The common femoral, superficial femoral and popliteal veins were compressible. Augmentation was normal. Flow was shown within the deep calf vessels. IMPRESSION: No evidence of deep venous thrombus within the right lower extremity. Electronically signed by: Tony Brizuela M.D. 05/15/2017 3:43 PM Dictated Date/Time: 05/15/2017 3:42 PM
[2017-05-15] MEDS ORDERED: DSY/150 PO (16:21)
[2017-05-15] MEDS ORDERED: ATV5X PO (16:21)
[2017-05-15] MEDS ORDERED: MELO-83 PO (16:21)
[2017-05-15 16:39] VITALS: BP 152/108; PULSE 70; O2SAT 97
--- NOTE | 2017-05-15 16:51 | EMERGENCY ROOM VISIT NOTE ---
History First contact with patient: 14:20 Chief Complaint: LEG PAIN,LEG INJURY Stated Complaint: LEG DISCOMFORT, CAN'T WALK History of Present Illness The patient is a 67 year old female who presents to the Emergency Room with complaints of persistent right lower extremity pain. The patient reports that she started to have discomfort since returning from a vacation in [place]. The patient reports that she did do a lot of walking prior to her 25 hour flight back to the [facility]. The patient reports that she was seen by her family doctor on 04/25/17, and underwent a CT scan of the chest that was negative for pulmonary emboli. She was then evaluated in the emergency department on with a normal ultrasound of the right lower extremity. 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 When her symptoms worsened again, she was seen [address] Rodriges at [facility]. The patient reports that she has a history of chronic right knee problems, including a meniscal tear. She has undergone physical therapy and viscosupplementation injections of the knee. On her last office visit, she requested an MRI of the knee which was denied. She also reports that she discussed the possibility of a joint replacement, but was told that she was too young to undergo this procedure. It was suggested that the patient take physical therapy, which the patient reports that she refuses to do at this point because she is upset with their office. She presents to emergency department today for another repeat ultrasound to rule out DVT, and to have an MRI performed of the knee. She rates her discomfort a 10 out of 10. When asked with the patient is currently taking for pain, she reports "nothing ". Review of Systems 10 system review was performed and was negative except for pertinent positives and negatives as indicated in history of present illness Past Medical/Surgical History Medical Problems: (1) History of colon polyps (2) Migraine headache (3) Mitral valve prolapse (4) Sleep apnea Surgical Problems: (1) History of uterine fibroid (2) Status post colonoscopy (3) Status post tubal ligation Family History Cervical cancer SISTER Diabetes mellitus FATHER Heart disease FATHER Hypertension FATHER Social History Smoking Status: Never Smoker Alcohol Use: occasionally Marital Status: single, Housing Status: lives alone Occupation Status: retired Current/Historical Medications Scheduled Lamotrigine (Lamotrigine), 25 MG PO HS Meloxicam (Meloxicam), 15 MG PO DAILY Trazodone HCl (Trazodone HCl), 150 MG PO HS Venlafaxine Hcl (Effexor Extended Rel), 150 MG PO BID Scheduled PRN Lorazepam (Lorazepam), 0.5 MG PO Q12 PRN for Anxiety Sumatriptan Succinate (Imitrex), 100 MG PO UD PRN for Migraine Physical Exam Vital Signs Date Time Temp Pulse Resp B/P (MAP) Pulse Ox O2 Delivery O2 Flow Rate FiO2 05/15/17 15:00 77 18 133/94 96 Room Air 05/15/17 14:14 36.4 78 16 134/87 98 Physical Exam CONSTITUTIONAL: Healthy and well nourished. Alert and oriented X 3 with positive affect. Patient does not appear in any acute distress on initial exam. HEENT: Normocephalic, atraumatic. Pupils equal, round and reactive. NECK: Full active range of motion without discomfort. MUSCULOSKELETAL: Examination of the right lower extremity does not show any obvious soft tissue edema, erythema or skin changes. She has generalized tenderness to palpation about the knee. She has no focal tenderness to palpation through the lower lumbar spine, right SI joint or sciatic notch. Negative sitting straight leg raise. Pedal pulses are intact. INTEGUMENTARY: No rash or other significant dermatologic conditions noted. NEUROLOGIC: No focal neurologic deficits noted. Medical Decision & Procedures ER Provider Diagnostic Interpretation: Venous ultrasound of the right lower extremity is negative for deep vein thrombosis. Radiologist report is as follows: RIGHT LOWER EXTREMITY VENOUS DOPPLER CLINICAL HISTORY: Right lower extremity pain. COMPARISON STUDY: Right lower extremity venous Doppler April 28, 2017. TECHNIQUE: Sonography of the deep venous system of the right lower extremity was performed. Compression and augmentation were evaluated. FINDINGS: The common femoral, superficial femoral and popliteal veins were compressible. Augmentation was normal. Flow was shown within the deep calf vessels. IMPRESSION: No evidence of deep venous thrombus within the right lower extremity. Medications Administered Medications (Trade) Dose Ordered Sig/Seble Route Start Time Stop Time Status Last Admin Dose Admin Acetaminophen (Tylenol Tab) 1,000 mg NOW STAT PO 05/15/17 14:42 05/15/17 14:44 DC 05/15/17 14:57 1,000 MG Oxycodone HCl (Roxicodone Immediate Rel Tab) 5 mg NOW STAT PO 05/15/17 14:42 05/15/17 14:44 DC 05/15/17 14:57 5 MG ED Course Patient history and physical exam were performed. Nurse's notes were reviewed. I also reviewed documentation from the patient's last ED visit. She had an extensive workup that was essentially normal. Vital signs were reviewed and were normal. The patient did request something for her pain before going to ultrasound. She was administered OxyIR 5 mg and Tylenol 1 g. Venous ultrasound of the right lower extremity was performed and was normal. At this point, I explained to the patient that her symptoms are likely secondary to exacerbation of right knee pain secondary to underlying osteoarthritis. I did suggest that she follow-up again with [facility] for further reevaluation. If she does not wish to do so, she was instructed to contact her family doctor. The patient was advised that she could always seek a second opinion from another orthopedic practice. A knee immobilizer was dispensed and applied prior to discharge. The patient reports that her neighbor likely has a walker that she can also use as needed. The patient was encouraged alternate ibuprofen and Tylenol for baseline pain relief. The patient did want a prescription for something stronger for pain. At this point, I queried the [place] Prescription Drug Monitoring Program, showing that the patient just got a prescription filled yesterday for hydrocodone. This prescription was written by Dr. Pérez, maxillofacial surgeon on 03/31/17. When the patient reported that she did not have any prescriptions at home, she was advised that she just got this prescription filled yesterday for 10 hydrocodone tablets. I also reviewed the print out from the [place] Prescription Drug Monitoring Program with the patient. The patient was advised that she would need to discuss further pain management with her PCP and/or orthopedics. The patient was initially upset because she was not provided a prescription, but then voiced understanding, rating her discomfort a 6 out of 10 at the conclusion of my exam. Case was also discussed with Dr. Paul, ED attending physician. Medical Decision [place] Drug Monitoring Program Search Results: patient reviewed within database, see additional documentation Medication Reconcilliation Current Medication List: was personally reviewed by me Blood Pressure Screening Patient's blood pressure: Normal blood pressure Impression Primary Impression: Exacerbation of right knee pain Additional Impression: Primary osteoarthritis of right knee Departure Information Referrals Gretchen Howard, C.R.N.P. (PCP) Patient Instructions My [facility] Problem Qualifiers
[2017-05-15] MEDS ORDERED: IMT100 PO (20:53)
[2017-05-15] MEDS ORDERED: LMC25 PO (21:19)
[2017-05-15] MEDS ORDERED: EFFSR150 PO (21:19)
--- NOTE | 2017-05-16 02:21 | EMERGENCY ROOM VISIT NOTE ---
ED Visit Note First contact with patient: 14:21 I reviewed the patient's past medical history, medications, and visit nursing notes. I discussed the case with the physician radiology assistant and agree with the findings and plan as documented in the physician assistants note.
== END 2017-05-15 16:42 | disposition home or self-care (01) ==
LOC: C.EDB 14:14 → C.EDD 16:42
DX: M79.604 Pain in right leg (principal); M17.11 Unilateral primary osteoarthritis, right knee; G47.30 Sleep apnea, unspecified

== ENCOUNTER → 2017-05-23 | Outpatient (CLI) | payer OTHER ==
[~2017-05-23] MED LIST changes: +ATV5X PO; +DSY/150 PO; +EFFSR150 PO; -FLUT0.15 INH; +IMT100 PO; +LMC25 PO; -LORA-741 PO; +MELO-83 PO; -MELO7.5T5 PO; -TRAZ-119 PO
--- NOTE | 2017-05-23 15:53 | DIAGNOSTIC IMAGING REPORT ---
MRI OF THE RIGHT KNEE CLINICAL HISTORY: Right knee pain. Swelling. COMPARISON STUDY: Radiographs of the right knee dated 02/19/2017. TECHNIQUE: MRI of the right knee was performed utilizing proton density, T1, and T2-weighted sequences in the axial, sagittal, coronal planes. IV contrast was not administered for this examination. FINDINGS: Menisci: There is a large oblique tear identified in the body and posterior horn of the medial meniscus. No flipped fragment is seen. There is increased signal within the posterior horn of the lateral meniscus which does not clearly extend to the inferior articular surface. This may represent intrasubstance tearing versus mucoid degeneration. Ligaments: The anterior and posterior cruciate ligaments are intact. There is grade 1 injury of the medial collateral alignment with mild overlying edema. The lateral collateral complex is preserved. Extensor mechanism: The extensor mechanism is intact. Hoffa's fat pad is normal in appearance. Articular cartilage and bone: There is mild tricompartmental thinning of the articular cartilage. This is greatest along the weightbearing surface in the medial compartment where is greater than 50%. Small marginal osteophytes are noted. No marrow edema is identified. There is no MRI evidence of fracture. Joint effusion: There is trace joint fluid. Soft tissues: A small popliteal cyst measures up to 4 cm. The musculature surrounding the knee joint is normal in bulk and signal intensity. IMPRESSION: 1. There is a large oblique tear involving the body and posterior horn of the medial meniscus. 2. Increased signal within the posterior horn of the lateral meniscus may represent intrasubstance tearing versus mucoid degeneration. 3. Suspect age indeterminant grade 1 injury of the medial collateral alignment. 4. The cruciate ligaments and lateral collateral ligament complex are preserved. 5. Mild arthritic change as above, greatest along the weightbearing surface in the medial compartment. There is no associated marrow edema. 6. Small popliteal cyst. Electronically signed by: Sung Giang M.D. 05/23/2017 3:51 PM Dictated Date/Time: 05/23/2017 3:45 PM
== END | disposition home or self-care (01) ==
LOC: C.MRI 14:18
PROVIDERS: ATTEND Physician Assistant
DX: S83.207S Unspecified tear of unspecified meniscus, current injury, left knee, sequela (principal); M17.9 Osteoarthritis of knee, unspecified; X58.XXXA Exposure to other specified factors, initial encounter

== ENCOUNTER → 2017-05-30 | Outpatient (CLI) | payer OTHER ==
[~2017-05-30] MED LIST changes: +GLUCTAB18 PO; +LAMO25TA PO; +SUMA100T15 PO
== END | disposition home or self-care (01) ==
LOC: C.RDSM 15:23
PROVIDERS: ATTEND Orthopaedic Surgery
DX: S83.209A Unspecified tear of unspecified meniscus, current injury, unspecified knee, initial encounter (principal); X58.XXXA Exposure to other specified factors, initial encounter

== ENCOUNTER → 2017-06-16 | Day surgery (SDC) | payer OTHER ==
[2017-06-03 08:31] VITALS: Ht 149.9 cm; Wt 73.6 kg
[2017-06-11 14:54] LABS: HEMATOCRIT 39.3 % (37-47); HEMOGLOBIN 12.9 g/dL (12.0-16.0); MEAN CELL VOLUME 89.3 fL (80-100); MEAN CORPUSCULAR HEMOGLOBIN 29.3 pg (25-34); MEAN CORPUSCULAR HGB CONC 32.8 g/dl (32-36); MEAN PLATELET VOLUME 10.1 fL (7.4-10.4); PLATELET COUNT 313 K/uL (130-400); RED CELL DISTRIBUTION WIDTH CV 13.4 % (11.5-14.5); RED CELL DISTRIBUTION WIDTH SD 43.7 fL (36.4-46.3); WHITE BLOOD COUNT 5.03 K/uL (4.8-10.8)
[2017-06-11 15:35] LABS: CREATININE 0.78 mg/dl (0.60-1.20); POTASSIUM 3.9 mmol/L (3.5-5.1)
[~2017-06-16] VITALS: Ht 149.9 cm; Wt 73.6 kg
[~2017-06-16] MED LIST changes: +ATROPINE SULFATE 0.1 MG/ML 5ML SYR IV PRN; +CLINDAMYCIN PHOS 150 MG/ML 2 ML VIAL IV SCH; +DEXAMETHASONE SOD INJ 4 MG/ML VIAL ONE; +EpHEDrine SULFATE INJ 50 MG/ML AMP IV PRN; +EpINEphrine HCL INJ 1 MG/ML 1ML SYRINGE ONE; +FENTANYL CITRATE INJ 50 MCG/1 ML 2 ML VIAL ONE; +HYDROCODONE/ACETAMIN 5/325MG TAB ONE; +HYDROCODONE/ACETAMIN 5/325MG TAB PO PRN; +KETOROLAC TROMETHAMINE 30 MG/ML VIAL ONE; +LACTATED RINGER'S 1000ML 1,000 ML IV SCH; +LIDO 2%/EPINEPHRINE 1:100000 20 ML VIAL INFIL ONE; +LIDOCAINE HCL 2% 2 ML VIAL (20MG/ML) ONE; +METOCLOPRAMIDE HCL INJ 5 MG/ML 2 ML VIAL IV PRN; +MIDAZOLAM HCL 1 MG/ML 2ML VIAL ONE; +ONDANSETRON INJ 2 MG/ML 2 ML VIAL IV PRN; +ONDANSETRON INJ 2 MG/ML 2 ML VIAL ONE; +PROPOFOL IV EMULSION 10 MG/ML 20 ML VIAL IV ONE; +ROPIVACAINE 0.5% 5 MG/ML 30 ML VIAL ONE; +SODIUM CHLORIDE 0.9% 1000ML 1,000 ML IV SCH; +SUCCINYLCHOLINE CHLORIDE 20 MG/ML 10 ML VIAL IV ONE
--- NOTE | 2017-06-16 07:02 | History & Physical Bridge - SC ---
H&P Re-Evaluation Bridge Note: I have examined the patient, reviewed the History & Physical and in the interval since the performance of the History & Physical I have noted the following changes of clinical significance: No changes noted
--- NOTE | 2017-06-16 09:30 | [facility] Post Operative Brief Note ---
Immediate Operative Summary Operative Date Jun 16, 2017. Pre-Operative Diagnosis Right Knee Medial and Lateral Meniscus Tears Post-Operative Diagnosis Same Procedure(s) Performed Right Knee Arthroscopy, Partial Medial And Lateral Meniscectomies, Chondroplasty of the Patella, Synovectomy Surgeon Dr. Black Grease Machine Worker Surgeon(s) Maryam Merrill PA-C Estimated Blood Loss 5 ml Findings Consistent with Post-Op Diagnosis Fluids (cc crystalloids) 900 cc Specimens None Drains None Anesthesia Type General Complication(s) Grade 2 MCL tear due to valgus stress on knee. Patient placed in hinged knee brace at conclusion of case to be worn for 6 weeks Disposition Accompanied Pt To Recovery: no Disposition: Recovery Room / PACU
--- NOTE | 2017-06-16 09:50 | [facility] Operative Report ---
Operative Report Operative Date Jun 16, 2017. Pre-Operative Diagnosis Right Knee Medial and Lateral Meniscus Tears Post-Operative Diagnosis Same Procedure(s) Performed Right Knee Arthroscopy, Partial Medial And Lateral Meniscectomies, Chondroplasty of the Patella, Synovectomy Surgeon Dr. Black Biochemistry Specialist Surgeon(s) Maryam Merrill PA-C Estimated Blood Loss 5 ml Fluids 900 cc Specimens None Drains None Anesthesia Type General Complication(s) Grade 2 MCL tear due to valgus stress on knee. Patient placed in hinged knee brace at conclusion of case to be worn for 6 weeks Disposition no Recovery Room / PACU Description of Procedure I was present during entire procedure and performed wound closure. See Dr. Black note for specifics. I attest to the content of the Intraoperative Record and any orders documented therein. Any exceptions are noted below.
--- NOTE | 2017-06-16 09:55 | Discharge Instructions ---
Discharge Instructions Date of Service Jun 16, 2017. Admission Reason for Admission: Right Knee Medial & Lateral Meniscus Tears Discharge Discharge Diagnosis / Problem: Right knee medial & lateral meniscus Tears; chondromalacia patella; synovit Discharge Goals Goal(s): Decrease discomfort, Improve function, Increase independence Activity Recommendations Activity Limitations: as noted below Lifting Limitations: none Exercise/Sports Limitations: until after follow-up appointment May Resume Sexual Activity: when tolerated Shower/Bathe: tomorrow, keep incision dry Driving or Machine Use: No driving until cleared by veterinary milk specialist Weightbearing Status: Right weightbearing (as tolerated with brace unlocked and with ambulatory aide) . Instructions / Follow-Up Instructions / Follow-Up Post-operative Instructions Dear Patient and Family/Friends, Before you are discharged from the hospital, it is important to know what to expect when you get home after surgery. To that end, we have created this sheet of discharge instructions which covers many commonly asked questions. Make sure you go through this sheet in its entirety with your nurse before you are discharged. Please note that we will go over the specifics of your surgery and recovery when you return for your first post-operative visit. Sincerely, Dr. Black Pain Expect to be in a fair amount of pain after surgery. Remember, our goal is not to eliminate your pain, but to make it tolerable. It is a good idea to stay ahead of your pain by taking the medications you were prescribed once you get home. Typically, the pain starts improving 3-7 days after surgery. You should start weaning off the narcotic pain medication (oxycodone, hydrocodone, hydromorphone, morphine) as soon as your pain improves. Please call our office if your pain is not adequately controlled. Ice Ice your operative site at least 5 times a day for 15-30 minutes at a time. Make sure you have a thin cloth between the ice or cooling unit and your skin to prevent conn bite. This is especially important if you received a nerve block. Continue icing your operative site for the first 5-7 days after surgery , then as needed. Diet/Nausea/Vomiting Start by drinking clear liquids and eating crackers. If you can tolerate this, then you may resume your normal diet. If you feel nauseated or vomit, take Zofran/ondansetron (if prescribed). Please call our office if you have intractable nausea or vomiting, or, if after hours, you may go to the Emergency Room for help. Constipation Constipation is a common side effect of narcotic pain medication. If you have not had a bowel movement within 2 days after surgery, we recommend purchasing an over the counter laxative such as Milk of Magnesia, Dulcolax, or Miralax from a local pharmacy, and taking it as instructed. Call our clinic if any questions. Slings and Braces If you were placed in a sling or brace, it must be worn at all times, including sleep. You may remove your sling or brace for physical therapy, home exercises , and showering. The length of time you will be in your brace and range of motion restrictions depends on what surgery you had; these details will be reviewed at your first post-operative appointment. Weight bearing and Range of Motion. Do not bear any weight through your operative extremity immediately after surgery. If you had upper extremity surgery, do not lift anything with that arm. If you are in a knee brace, keep it locked in place until your follow-up. We will discuss your weight bearing, range of motion, and lifting restrictions in detail at your first post-operative appointment. Continuous Passive Motion (CPM) Machine If you were prescribed a CPM machine, it will start after your first post- operative appointment, at which time we will give you instructions on the range of motion settings and duration of treatment Physical therapy You will be given a prescription for physical therapy or occupational therapy at your first post-operative appointment. Typically, patients start therapy within 1 week of surgery Wound care and showering We will inspect your wound at your first post-operative visit, and may do a dressing change at that time. Most patients will be in a water-proof dressing that is removed 14 days after surgery. It is normal to see some dried blood on the dressing. Do not remove your dressing, paper strips or sutures yourself unless you are given permission. Showering is allowed the day after surgery. Do not scrub or remove any dressings. The wound should not be submerged underwater (i.e. in a bathtub or pool) until 4 weeks after surgery MEGHANN stockings If you were given white stockings, these are to be worn at all times except to shower (on both legs) for the first 2 weeks after surgery. Driving You may not drive while taking narcotic pain medication or while in a cast, splint, sling or brace. You, the patient, need to make the final determination about when you are safe to drive, however, the earliest you may consider driving after surgery is below: Hand/Wrist/Elbow Surgery: 3 days Shoulder Surgery: 2 weeks Hip,/Knee/Ankle Surgery: 4 weeks Fracture repair: 6 weeks Return to Work Your return to work depends on what surgery was done and what type of work you do. Please bring any paperwork your employer needs completed to your first post -operative visit. Also, bring a description of your job duties, as this helps us to understand what risks you may face at work. Travel Avoid long distance travel (greater than 1 hour) in airplanes and cars for the first 6 weeks after surgery. If you must travel, you need to have a Doppler ultrasound done before you travel to rule out a blood clot in your legs. Follow-up You should have a follow-up appointment already scheduled 1-2 days after surgery. If not, please contact our office to make this appointment before you leave the hospital. When to call the office It is normal to have swelling and bruising in the limb that was operated on. This will improve with time. It is also normal to have fevers for the first 2 days after surgery. Reasons you should call your doctor include: Uncontrolled pain; Nausea, vomiting, or constipation that does not improve with medication; Fevers over 101.5, chills, sweats; Drainage or bleeding from the wound; Foul odor; Spreading areas of redness; Any other concerns Current Hospital Diet Patient's current hospital diet: Discharge Diet Recommended Diet: Regular Diet Procedures Procedures Performed: Right Knee Arthroscopy, Partial Medial And Lateral Meniscectomies, Chondroplasty of the Patella, Synovectomy Pending Studies Studies pending at discharge: no Medical Emergencies . Who to Call and When: Medical Emergencies: If at any time you feel your situation is an emergency, please call 911 immediately. . Non-Emergent Contact Non-Emergency issues call your: Primary Care Provider Call Non-Emergent contact if: you have a fever, temperature is above 101.5, your pain is not controlled, your pain is worsening, wound has increased drainage, you have any medication questions . "Provider Documentation" section prepared by Keyshawn Merrill. . [place] Drug Monitoring Program Search Results: patient reviewed within database, no issues identified, see additional documentation
[2017-06-16] MEDS: FENTANYL CITRATE INJ 50 MCG/1 ML 2 ML VIAL IV PRN ×4 (10:02→10:36)
[2017-06-16 10:57] VITALS: TEMP 36.3
--- NOTE | 2017-06-16 10:59 | Anesthesia Progress Nt - [facility] ---
Anesthesia Post Op Note Date & Time Jun 16, 2017 at 10:59 Vital Signs Pain Intensity: 8 Vital Signs Past 12 Hours Date Time Temp Pulse Resp B/P (MAP) Pulse Ox O2 Delivery O2 Flow Rate FiO2 06/16/17 10:52 84 18 94 06/16/17 10:52 84 18 06/16/17 10:52 37.0 16 95 Room Air 06/16/17 10:51 125/63 06/16/17 10:47 81 23 97 06/16/17 10:47 81 23 06/16/17 10:46 131/71 06/16/17 10:42 83 24 97 06/16/17 10:42 83 24 06/16/17 10:41 146/55 06/16/17 10:37 83 17 98 06/16/17 10:37 83 17 06/16/17 10:36 122/95 06/16/17 10:32 84 18 06/16/17 10:32 84 18 95 06/16/17 10:30 121/76 06/16/17 10:27 85 20 06/16/17 10:27 84 20 93 06/16/17 10:26 119/60 06/16/17 10:24 82 14 97 06/16/17 10:24 83 14 06/16/17 10:21 124/58 06/16/17 10:19 83 20 100 06/16/17 10:19 83 20 18 10:16 104/61 06/16/17 10:14 82 17 100 06/16/17 10:14 82 17 06/16/17 10:11 138/57 06/16/17 10:09 80 17 100 06/16/17 10:09 81 17 18 10:05 111/100 06/16/17 10:04 80 18 100 18 10:04 80 18 18 10:01 121/50 18 09:59 80 18 99 18 09:59 78 18 18 09:56 138/67 18 09:54 80 19 /218 09:54 80 19 100 18 09:50 143/73 06/16/17 09:49 37.0 82 12 143/73 100 Mask 6 4/2/18 09:49 84 06/16/17 09:49 84 97 06/16/17 06:38 36.9 66 18 100/65 (77) 95 Room Air Notes Mental Status: alert / awake / arousable, participated in evaluation Pt Amnestic to Procedure: Yes Nausea / Vomiting: adequately controlled Pain: adequately controlled Airway Patency, RR, SpO2: stable & adequate BP & HR: stable & adequate Hydration State: stable & adequate Anesthetic Complications: no major complications apparent
--- NOTE | 2017-06-16 11:05 | OPERATIVE REPORT ---
DATE OF OPERATION: 06/16/2017 PREOPERATIVE DIAGNOSES: Right knee medial and lateral meniscus tears, chondromalacia and synovitis. OPERATIONS PERFORMED: 1. Right knee arthroscopy, medial and lateral partial meniscectomies. 2. Right knee major synovectomy. 3. Right knee chondroplasty. SURGEON: Gera Black MD BAG END SEWER: Maryam Merrill. ESTIMATED BLOOD LOSS: 5 mL. SPECIMENS: None. COMPLICATIONS: Intraoperative MCL rupture grade 2 secondary to valgus stress on the knee. This will be treated conservatively with a postop hinged knee brace. IMPLANTS: None. INDICATIONS: Ms. Saxena is a 67-year-old female who has had pain in her right knee that has been refractory to conservative management. She has undergone physical therapy, corticosteroid injections, anti-inflammatory medication and activity modification without relief. MRI was obtained, demonstrating tears of the medial and lateral meniscus, synovitis as well as chondral changes in a tricompartmental pattern. She does have mild arthritis on her x-rays. However, she is not a candidate for knee replacement. I had a long discussion with her about the risks and benefits of surgery, alternatives to surgery and expected outcomes. After reviewing all these, she elected to proceed with surgery. All questions were answered. Informed consent was signed. OPERATIVE FINDINGS: 1. The MCL was ruptured during a valgus stressing of the knee during a partial medial meniscectomy. This was a grade 2 injury. There was no opening at full extension, only at 30 degrees. This will be treated postoperatively in a hinged knee brace and should heal fine with conservative management. 2. The undersurface of the patella showed grade 3 chondromalacia, predominantly affecting the lateral facet. 3. The trochlea showed grade 1 chondromalacia. 4. The notch showed the ACL and the PCL to be intact. 5. The medial compartment showed synovitis extending into the lateral compartment. There was a complete radial tear of the medial meniscus at the junction of the posterior horn into the body. There was also a horizontal degenerative tear of the remainder of the posterior horn of the medial meniscus. There were grade 3 chondral changes on the medial femoral condyle and grade 2 chondral changes of the medial tibial plateau. 6. The lateral compartment showed synovitis as well as a degenerative tear of the central margin of the body and posterior horn of the lateral meniscus. There was a grade 4 chondral defect measuring 10 x 15 mm of the lateral tibial plateau. There was also a small 3 x 8 mm grade 4 chondral defect of the lateral femoral condyle. A partial medial meniscectomy was performed back to a stable margin. Partial lateral meniscectomy was performed in similar fashion. The chondral lesion of the lateral tibial plateau was debrided to remove all flaps. A gentle chondroplasty was performed of the patella. The synovitis in the anterior medial and anterolateral aspects of the knee was resected and cauterized. DESCRIPTION OF OPERATION: The patient was identified in the preoperative holding area. Surgical site was marked. She was brought back to the main operating room, where she was placed on the operating table and general anesthesia was administered. All bony prominences were padded. Perioperative antibiotics were administered. She was prepped and draped in normal sterile fashion. Prior to incision, a multidisciplinary timeout was called. All in the room were in agreement. We began by injecting her portals with 4 mL of 2% lidocaine with epinephrine. A lateral viewing portal was then created followed by a medial working portal under direct visualization. We then performed a diagnostic arthroscopy revealing the above findings. Once her diagnostic arthroscopy was complete, the meniscal biters were brought through the medial working portal and were used to trim her medial meniscus tear back to stable margins. During the process of applying a valgus stress to the knee to visualize the body and posterior horn of the medial meniscus, a small pop was felt and the medial compartment opened up further, indicative of a grade 2 MCL tear. This will be treated in a hinged knee brace at the conclusion of the case as stated above. There was no opening to valgus stress with the knee at full extension. Next, the arthroscope was moved into the lateral compartment and meniscal biters were used to trim the lateral meniscus back to a stable margin. Meniscal biters were also used to trim back the chondral flap of the lateral tibial plateau. A shaver was used to smooth the edges of both the meniscus and the cartilage further. Finally, the chondral lesion of the lateral femoral condyle was also trimmed back with biters as well as a shaver to stable margins. Next, the knee was brought into full extension and the further synovitis in the anteromedial and anterolateral aspects of the knee was resected with shaver and electrocautery. The chondroplasty was performed of the lateral facet of the patella. Final arthroscopic images were then obtained. Her portals were closed with 3-0 Monocryl sutures. Steri-Strips were applied followed by sterile dressings. 30 mL of Naropin was injected for postoperative pain, 10 mL in each portal site and 10 mL in the joint. The patient was then placed into a hinged knee brace. She was awoke from anesthesia and transferred to the recovery room in stable condition. POSTOPERATIVE COURSE: The patient will be discharged home from the recovery room. She will follow up in clinic tomorrow to start physical therapy, review her postoperative restrictions and to initiate physical therapy. She will be on aspirin for DVT prophylaxis. Weightbearing as tolerated following the knee arthroscopy protocol. The hinged knee brace will be unlocked for the next 6 weeks. I attest to the content of the Intraoperative Record and any orders documented therein. Any exception s are noted below.
[2017-06-16 11:30] VITALS: BP 133/80; PULSE 88; O2SAT 99
== END | disposition home or self-care (01) ==
LOC: X.SURG 06:07
PROVIDERS: ATTEND Orthopaedic Surgery
DX: S83.241A Other tear of medial meniscus, current injury, right knee, initial encounter (principal); S83.281A Other tear of lateral meniscus, current injury, right knee, initial encounter; X58.XXXA Exposure to other specified factors, initial encounter; M94.261 Chondromalacia, right knee; M65.861 Other synovitis and tenosynovitis, right lower leg; Z88.2 Allergy status to sulfonamides; Z88.0 Allergy status to penicillin; G47.33 Obstructive sleep apnea (adult) (pediatric); Z98.890 Other specified postprocedural states; Z90.89 Acquired absence of other organs; Z98.818 Other dental procedure status; Z81.8 Family history of other mental and behavioral disorders; Z79.899 Other long term (current) drug therapy

== ENCOUNTER 2020-11-01 11:29 | Observation (INO) ==
[2020-11-01] MEDS ORDERED: NITROGLYCERIN 2% OINTMENT 30GM TUBE EXT STA (12:36)
--- NOTE | 2020-11-01 12:39 | Emergency Department Note ---
History of Present Illness General Chief complaint: Arrhythmia/Palpitations Stated complaint: HEART PALPITATIONS, SORE NECK, DIZZY Time Seen by Provider: 11/01/20 12:21 Source: patient History of Present Illness Provider complaint: Dizziness Onset (ago): day(s) 5 Location: head Pain Consistency: + intermittent Quality: + other (Lightheadedness without vertigo) Exacerbated By: + other (Laying flat on the bed) Associated symptoms: + chest pain, + headaches (Starting 3 days ago) and + shortness of breath (With exertion); no cough, no fever/chills or no nausea/vomiting This is a 70-year-old female who presents with multiple symptoms today. She states that she went to a social gathering 5 days ago and she states that she was nodding her head vigorously during conversations she was excited to see her friends and they were all taller than her. When she got home she started to feel dizzy. She describes this as a lightheadedness. She has had it intermittently since. She did feel better Friday and went to a picnic but is currently still feeling dizzy. She states is worse when she lies flat. She started also having palpitations 4 days ago. She felt like her heart was racing. She did not take her pulse at the time. She has had persistent symptoms since then. She started to have a headache 3 days ago which she describes as a byaf-wu-eqfj headache that bounces pujl-icf-vmgjx and she can hear her heart beat in alternating ears. She denies any numbness or weakness on one side of her body. She saw her doctor 2 days ago to discuss her symptoms and her doctor told her that was likely anxiety. She has had persistent symptoms and so she became concerned and called her neurologist office to get an ap pointment. She was told by the neurologist office that they had no appointments and that she should go to the emergency department to get evaluated. She states that 2 hours prior to arrival she started having chest pain. She describes it as a pressure just right of her sternum without radiation. It is associated with shortness of breath. She does state that she has been short of breath on exertion all weekend. She denies any history of heart disease. She denies any fever, cough or cold symptoms, abdominal pain, vomiting, diarrhea or urinary symptoms. She denies any significant leg swelling or pain other than to her left knee where she had knee replacement 8 weeks ago. Home Medications Medication Instructions Recorded Confirmed Type onabotulinumtoxinA 100 unit 100 unit DIRECTED 01/03/20 11/01/20 History solution for injection (Botox) oxybutynin chloride 10 mg 10 mg PO DAILY tab 07/06/20 11/01/20 History tablet,extended release 24 hr trazodone 50 mg tablet 50 mg PO DAILY 30 Days #30 tab 08/02/20 11/01/20 Rx iqnbiyxnka-uwysgqoysgsfs-vgekzonx 2 tab PO Q6H PRN #12 tab 08/16/20 11/01/20 Rx 50 mg-325 mg-40 mg tablet cyclobenzaprine 10 mg tablet 5 mg PO DAILY PRN #20 tab 09/14/20 11/01/20 Rx duloxetine 30 mg capsule,delayed 30 mg PO DAILY #30 cap 10/17/20 11/01/20 Rx release (Cymbalta) metronidazole 0.75 % vaginal gel 1 appful VAGINAL DAILY 5 Days #70 g 10/17/20 11/01/20 Rx (Metrogel Vaginal) buspirone 10 mg tablet 10 mg PO BID #60 tab 10/30/20 11/01/20 Rx sumatriptan succinate 100 mg 100 mg PO DAILY PRN 11/01/20 11/01/20 History tablet (Imitrex) Allergies Allergy/AdvReac Type Severity Reaction Status Date / Time pesticide Allergy Mild Confusion Verified 10/30/20 09:55 adhesive AdvReac Mild RASH/BURN Verified 10/30/20 09:55 with old type bandaids Penicillins AdvReac Mild Rash Verified 10/30/20 09:55 Past Med/Surg History Medical History Anxiety Arthritis of knee Chronic back pain Concussion X 3 2018(MAR,APR,MAY) 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-WENT TO "[employer]" Depression Fibromyalgia History of colon polyps Insomnia Memory loss NO ISSUES CURRENTLY PER PT Migraine headache BOTOX INJECTIONS FOR [place] (EVERY 90 DAYS) Mitral valve prolapse NO PREMED WITH DENTAL Neurologic gait dysfunction RELATED TO CONCUSSIONS Occipital neuralgia Osteoarthritis Papilloma of breast Peripheral neuropathy Postmenopausal atrophic vaginitis Sleep apnea "MILD" NO DEVICE USED Urinary frequency Vitamin D deficiency Vitamin D deficiency disease Surgical History History of arthroscopy RT KNEE History of blepharoplasty RT/LEFT History of colonoscopy with polypectomy History of dilatation and curettage UTERINE ALBATION History of root canal procedure History of surgical procedure on mouth dental implant History of tooth extraction Status post left partial knee replacement Status post tubal ligation Family History Father Family history of diabetes mellitus Family hx colonic polyps Colorectal cancer Grandmother (Paternal) Family history of diabetes mellitus Sister Family history of diabetes mellitus Ovarian cancer Mother Breast cancer Grandfather (Maternal) Myocardial infarction Other No family history of adverse response to anesthesia Denies family history of Prostate cancer Social History Smoking Status: Never smoker Second Hand Exposure: No; Hx Alcohol Use: Yes Alcohol type: beer Hx Substance Use: No Preferred Language: Vietnamese Communication Ability: Effective Visual Impairment: No Limitations Hearing Ability: Normal [employer] Required: No Beliefs That Will Affect Care: None marital status: Current Living Situation: Alone current occupational status: retired Feels Safe at Home: Yes Dental Care, Regularly: Yes Physical Activity Frequency: Does not Exercise Seatbelt Use: always Sunscreen Use: Yes Assistive Devices: Cane and Glasses Review of Systems See HPI for pertinent positives & negatives. and A total of 10 systems reviewed and were otherwise negative Physical Exam Vital Signs Vital Signs - 24 hr 11/01/20 11:35 11/01/20 11:45 11/01/20 12:00 Temperature 36.6 C Temperature Source Oral Pulse Rate 107 H 89 81 Pulse Rate [Right Finger] Pulse Rate from SpO2 Sensor 89 Respiratory Rate 20 20 12 Respiratory Effort / Characteristics Non-Labored Spontaneous Respiratory Depth Normal Respiratory Pattern Regular Blood Pressure 158/77 H 159/89 H 133/88 Blood Pressure [Left Arm] Blood Pressure Mean 104 112 103 Blood Pressure Mean [Left Arm] Blood Pressure Position [Left Arm] Pulse Oximetry 95 96 Oxygen Delivery Method Room Air Sepsis Recent Fever Within 48 Hours No Sepsis New/Unexplained Change in Mental Status N/A Sepsis Action Taken by Nursing No Action Required 11/01/20 12:30 11/01/20 13:00 11/01/20 13:30 Temperature Temperature Source Pulse Rate 86 76 Pulse Rate [Right Finger] Pulse Rate from SpO2 Sensor Respiratory Rate 15 12 Respiratory Effort / Characteristics Respiratory Depth Respiratory Pattern Blood Pressure 142/91 H 158/97 H 135/109 H Blood Pressure [Left Arm] Blood Pressure Mean 108 117 117 Blood Pressure Mean [Left Arm] Blood Pressure Position [Left Arm] Pulse Oximetry Oxygen Delivery Method Sepsis Recent Fever Within 48 Hours Sepsis New/Unexplained Change in Mental Status Sepsis Action Taken by Nursing 11/01/20 14:00 11/01/20 14:31 11/01/20 15:00 Temperature Temperature Source Pulse Rate 82 84 88 Pulse Rate [Right Finger] Pulse Rate from SpO2 Sensor 82 84 89 Respiratory Rate 22 19 17 Respiratory Effort / Characteristics Respiratory Depth Respiratory Pattern Blood Pressure 146/107 H 152/98 H 155/92 H Blood Pressure [Left Arm] Blood Pressure Mean 120 116 113 Blood Pressure Mean [Left Arm] Blood Pressure Position [Left Arm] Pulse Oximetry 99 98 97 Oxygen Delivery Method Sepsis Recent Fever Within 48 Hours Sepsis New/Unexplained Change in Mental Status Sepsis Action Taken by Nursing 11/01/20 15:30 11/01/20 16:02 11/01/20 16:30 Temperature Temperature Source Pulse Rate 81 81 74 Pulse Rate [Right Finger] 86 Pulse Rate from SpO2 Sensor 81 81 74 Respiratory Rate 16 15 19 Respiratory Effort / Characteristics Non-Labored Spontaneous Respiratory Depth Normal Respiratory Pattern Regular Blood Pressure 152/95 H 157/77 H 155/89 H Blood Pressure [Left Arm] 152/98 H Blood Pressure Mean 114 103 111 Blood Pressure Mean [Left Arm] 116 Blood Pressure Position [Left Arm] Lying Pulse Oximetry 97 98 99 Oxygen Delivery Method Room Air Sepsis Recent Fever Within 48 Hours Sepsis New/Unexplained Change in Mental Status Sepsis Action Taken by Nursing 11/01/20 17:00 Temperature Temperature Source Pulse Rate 76 Pulse Rate [Right Finger] Pulse Rate from SpO2 Sensor Respiratory Rate 18 Respiratory Effort / Characteristics Respiratory Depth Respiratory Pattern Blood Pressure 170/99 H Blood Pressure [Left Arm] Blood Pressure Mean 122 Blood Pressure Mean [Left Arm] Blood Pressure Position [Left Arm] Pulse Oximetry Oxygen Delivery Method Sepsis Recent Fever Within 48 Hours Sepsis New/Unexplained Change in Mental Status Sepsis Action Taken by Nursing Constitutional: Vital signs reviewed. Eyes: Pupils are equal round reactive to light. Conjunctiva are noninjected. ENT: Pharynx is clear without erythema or exudate. Mucous membranes are moist. Neck supple without meningeal signs. Respiratory: Clear to auscultation bilaterally. Breath sounds are equal bilaterally. Cardiovascular: Regular rate and rhythm. No rubs or gallops. GI: Soft, nondistended and nontender. Bowel sounds are present. Musculoskeletal: No peripheral edema. No lower extremity tenderness. Integumentary: No cyanosis. or jaundice. Neurologic: The patient is awake and alert. Cranial nerves II-XII are intact. Motor is 5 out of 5 all extremities. Sensation is intact to light touch all extremities. Normal speech. No pronator drift. No limb ataxia. Psychiatric: Normal affect. Not anxious appearing. Course Administered Medications Ketorolac Tromethamine (Ketorolac Tromethamine 15 Mg/Ml Vial) 15 mg IV Q6H PRN PRN Reason: Pain Stop: 11/06/20 18:17 Last Admin: 11/01/20 18:32 Dose: 15 mg Documented by: [id number] Discontinued Medications Ioversol (Optiray 320 125ml) 120 ml IV ONCE ONE Stop: 11/01/20 13:38 Last Admin: 11/01/20 13:38 Dose: 120 ml Documented by: [id number] Morphine Sulfate (Morphine Sulfate 2 Mg/Ml Carp) 2 mg IV NOW STA Stop: 11/01/20 13:07 Last Admin: 11/01/20 14:12 Dose: 2 mg Documented by: [id number] Nitroglycerin (Nitroglycerin 2% Ointment 30gm Tube) 0.5 inch EXT NOW STA Stop: 11/01/20 12:37 Last Admin: 11/01/20 12:45 Dose: 0.5 inch Documented by: [id number] Ondansetron HCl (Ondansetron Inj 2 Mg/Ml 2 Ml Vial) 4 mg IV NOW STA Stop: 11/01/20 13:07 Last Admin: 11/01/20 14:12 Dose: 4 mg Documented by: [id number] Potassium Chloride (Potassium Chloride Crtab 20 Meq Tabcr) 20 meq PO NOW STA Stop: 11/01/20 16:59 Last Admin: 11/01/20 18:31 Dose: 20 meq Documented by: [id number] Medical Decision Making Differential Diagnosis Unstable angina, NC, pulmonary embolism, dysrhythmia, metabolic derangement, vertebral dissection Medical Records Attestation: I reviewed the patient's medical records. I did perform a limited focused review of portions of the patient's old chart on the electronic medical record. The patient was seen October 30 for a wellness visit per her PCP. No mention was made of current symptoms. Home Medications Current Medication List: was personally reviewed by me Laboratory Data Attestation: I reviewed the patient's lab results. Result diagrams: 11/01/20 Unknown 11/01/20 Unknown Imaging Data Radiologist's Impression: Chest X-Ray 11/01/20 12:36 XR chest 1V portable HISTORY: Atypical Chest Pain COMPARISON: Chest 02/24/2019. FINDINGS: The heart is normal in size. No pleural effusions. No pneumothorax. No focal lung consolidations to suggest pneumonia. No evidence for pulmonary edema. Questionable 1 cm nodular density within the left upper lobe is likely due to the overlapping scapula. IMPRESSION: 1. No acute process within the chest. 2. A questionable 1 cm nodular density within the left upper lobe is likely due to the overlapping scapula. Follow-up nonemergent repeat PA and lateral views of the chest are recommended for further evaluation. ACT 112: Positive. There are findings on this exam that require communication between the performing entity and the patient following Patient Test Result Information Act ([place] Act 112) guidelines. Electronically signed by: Torsten Blanca M.D. 11/01/2020 1:[address] 11/01/20 13:07 CT head/brain wo con CLINICAL HISTORY: [facility] COMPARISON STUDY: May 29, 2018 TECHNIQUE: Axial CT of the brain is performed from the vertex to the skull base. IV contrast was not administered for this examination. A dose lowering technique was utilized adhering to the principles of ALARA. CT DOSE: FINDINGS: No intra or extra-axial mass lesions are visualized. There is no CT evidence of acute cortical infarction. There is no evidence of midline shift. There is no acute hemorrhage. No acute depressed calvarial fractures are visualized. There are patchy white matter hypodensities likely on a small vessel basis. There is no evidence of pathologic ventricular dilatation. There is no evidence of acute sinusitis IMPRESSION: No acute intracranial hemorrhage, no midline shift or space occupying lesions. ACT 112: Negative or not required by law. The above report was generated using voice recognition software. It may contain grammatical, syntax or spelling errors. Electronically signed by: Lynn Rosa DO 11/01/2020 2:03 PM Head CTA 11/01/20 13:07 CT ANGIOGRAM OF THE BRAIN; CT ANGIOGRAM OF THE NECK CLINICAL HISTORY: Dizziness. Neck pain. Palpitations. COMPARISON STUDY: Unenhanced CT of the brain performed concurrently on 11/01/2020. TECHNIQUE: Following the IV administration of 120 of Optiray 320, CT angiogram of the head and neck was performed from the aortic arch to the vertex. Images are reviewed in the axial, sagittal, and coronal planes. 3-D MIPS images are created and assessed. IV contrast was administered without complication. All measurements were calculated based on NASCET criteria. A dose lowering technique was utilized adhering to the principles of ALARA. CT DOSE: 967.79 mGy.cm FINDINGS: Brain parenchyma: There is age-related involutional change. There is no hemorrhage, mass effect, or evidence of acute territorial ischemia by CT criteria. There is no evidence of enhancing mass lesion on the angiogram phase images. The ventricles, sulci, and cisterns are prominent secondary to involutional change. Terrell-white matter differentiation is preserved. No extra- axial fluid collection is seen. Thoracic aorta: Visualized portions of the thoracic aorta are normal in caliber. The aortic arch demonstrates standard 3-vessel anatomy. Right carotid arterial system: The right common carotid artery is widely patent, as are the right internal and external carotid arteries. Left carotid arterial system: The left common carotid artery is widely patent, as are the left internal and external carotid arteries. Mild calcified plaque is seen in the carotid bulb. Vertebral arteries: The vertebral arteries are widely patent bilaterally and codominant. Subclavian arteries: Widely patent bilaterally. Intracranial vasculature: There is atherosclerotic calcification of the cavernous carotid arteries. There are large bilateral posterior to communicating arteries, with origin of the left ROADMASTER. The internal carotid arteries are patent at the skull base, as are the anterior and middle cerebral arteries bilaterally. The vertebrobasilar system and posterior cerebral arteries are widely patent. The vertebral arteries are codominant. There is no aneurysm, high-grade stenosis, or focal vessel cut off seen throughout the intracranial circulation. Jugular veins: Patent bilaterally. Dural sinuses: Patent. Lung apices: Partially visualized upper lobe lung parenchyma appears clear. Soft tissues: The visualized pharyngeal soft tissues are normal in appearance noting angiographic phase technique. The oropharyngeal airway appears widely patent. The salivary and thyroid glands are normal in appearance. No cervical lymphadenopathy is seen. Skeletal structures: The skeletal structures are osteopenic. The calvarium appears intact. The cervical spine is maintained noting mild spondylosis. No lytic or blastic lesion is seen. There is a mild and age indeterminant superior plate compression deformity of T3. Orbits: The bony orbits are intact. Orbital contents are normal as visualized noting bilateral ocular lens implants. Sinuses and mastoids: The paranasal sinuses are clear. There is trace right mastoid effusion. The left mastoid air cells are well pneumatized. IMPRESSION: 1. There is no evidence of hemorrhage, mass effect, or acute territorial ischemia noting angiographic phase technique. 2. Unremarkable CT angiogram of the brain. 3. Unremarkable CT angiogram of the neck. ACT 112: Negative or not required by law. Electronically signed by: Sung Giang M.D. 11/01/2020 2:12 PM Neck CTA 11/01/20 13:07 CT ANGIOGRAM OF THE BRAIN; CT ANGIOGRAM OF THE NECK CLINICAL HISTORY: Dizziness. Neck pain. Palpitations. COMPARISON STUDY: Unenhanced CT of the brain performed concurrently on 11/01/2020. TECHNIQUE: Following the IV administration of 120 of Optiray 320, CT angiogram of the head and neck was performed from the aortic arch to the vertex. Images are reviewed in the axial, sagittal, and coronal planes. 3-D MIPS images are created and assessed. IV contrast was administered without complication. All measurements were calculated based on NASCET criteria. A dose lowering technique was utilized adhering to the principles of ALARA. CT DOSE: 967.79 mGy.cm FINDINGS: Brain parenchyma: There is age-related involutional change. There is no hemorrhage, mass effect, or evidence of acute territorial ischemia by CT criteria. There is no evidence of enhancing mass lesion on the angiogram phase images. The ventricles, sulci, and cisterns are prominent secondary to involutional change. Terrell-white matter differentiation is preserved. No extra- axial fluid collection is seen. Thoracic aorta: Visualized portions of the thoracic aorta are normal in caliber. The aortic arch demonstrates standard 3-vessel anatomy. Right carotid arterial system: The right common carotid artery is widely patent, as are the right internal and external carotid arteries. Left carotid arterial system: The left common carotid artery is widely patent, as are the left internal and external carotid arteries. Mild calcified plaque is seen in the carotid bulb. Vertebral arteries: The vertebral arteries are widely patent bilaterally and codominant. Subclavian arteries: Widely patent bilaterally. Intracranial vasculature: There is atherosclerotic calcification of the cavernous carotid arteries. There are large bilateral posterior to communicating arteries, with origin of the left ROADMASTER. The internal carotid arteries are patent at the skull base, as are the anterior and middle cerebral arteries bilaterally. The vertebrobasilar system and posterior cerebral arteries are widely patent. The vertebral arteries are codominant. There is no aneurysm, high-grade stenosis, or focal vessel cut off seen throughout the intracranial circulation. Jugular veins: Patent bilaterally. Dural sinuses: Patent. Lung apices: Partially visualized upper lobe lung parenchyma appears clear. Soft tissues: The visualized pharyngeal soft tissues are normal in appearance noting angiographic phase technique. The oropharyngeal airway appears widely patent. The salivary and thyroid glands are normal in appearance. No cervical lymphadenopathy is seen. Skeletal structures: The skeletal structures are osteopenic. The calvarium appears intact. The cervical spine is maintained noting mild spondylosis. No lytic or blastic lesion is seen. There is a mild and age indeterminant superior plate compression deformity of T3. Orbits: The bony orbits are intact. Orbital contents are normal as visualized noting bilateral ocular lens implants. Sinuses and mastoids: The paranasal sinuses are clear. There is trace right mastoid effusion. The left mastoid air cells are well pneumatized. IMPRESSION: 1. There is no evidence of hemorrhage, mass effect, or acute territorial ischemia noting angiographic phase technique. 2. Unremarkable CT angiogram of the brain. 3. Unremarkable CT angiogram of the neck. ACT 112: Negative or not required by law. Electronically signed by: Sung Giang M.D. 11/01/2020 2:12 PM ECG Data Attestation: I personally reviewed and interpreted this ECG as follows: Indication: + chest pain Rate (beats per minute): 97 Rhythm: + normal sinus ECG Intervals/blocks: + Left anterior fascicular block ECG ST segments: + Nonspecific ST abnormalities ECG Findings: no PVCs MDM Narrative I did evaluate the patient as noted above. She is presenting with several complaints today. She states that she started feeling lightheaded 5 days ago. She also had palpitations starting 4 days ago and headache starting 3 days ago. She now has chest discomfort which she describes as a pressure. IV access was established. I did treat the patient with nitroglycerin paste. She stated that her chest pain went away but she developed a bad headache. She was given 50 mcg of fentanyl IV and Zofran IV. I did place an order for continuous cardiac monitoring. The monitor showed normal sinus rhythm at a rate of 88 bpm. I did order and personally review the patient's 12-lead EKG as described above. She has nonspecific ST changes. No signs of STEMI or dysrhythmia. I did order and personally reviewed the images of the patient's chest x-ray as described above. I did order a urine analysis. I did order and review the patient's blood work as noted in the electronic medical record. Her white blood cell count is 4. She is not anemic or thrombocytopenic. Her electrolytes demonstrates a potassium of 3.4 current and a chloride of 109. Troponin is negative. D-dimer is negative as well. I did order a CT of the head and CT angiogram of the head neck. I did review the images myself as well as the radiology report as described above. There is no evidence of acute intracranial abnormality. Angiograms of the head and neck are both unremarkable. I did reassess the patient. She is feeling better although still has a persistent headache. The nitroglycerin was discontinued. I did discuss the test results with the patient. She will be hospitalized for repeat cardiac biomarkers and further evaluation. I did discuss the case with the hospitalist and case liner. Impression & Plan Chest pain, Dizziness, Palpitations Discharge Plan Visit Data Chief Complaint: Arrhythmia/Palpitations Stated Complaint: HEART PALPITATIONS, SORE NECK, DIZZY ED Provider: Justice Murillo Discharge Problem: Chest pain, Dizziness, Palpitations Patient Disposition: Admitted As Inpatient Discharge Instructions Interventions: ED Discharge Assessment Last Done: 11/01/20 17:12
[2020-11-01 12:47] LABS: Basophils # (auto) 0.01 K/uL (0-0.2); Basophils % (auto) 0.2 %; Eosinophils # (auto) 0.05 K/uL (0-0.5); Eosinophils % (auto) 1.2 %; Hematocrit (blood only) 40.1 % (37-47); Hemoglobin 13.1 g/dL (12.0-16.0); Lymphocytes # (auto) 1.08 K/uL (1.2-3.4); Lymphocytes % (auto) 26.2 %; Mean Corpuscular Hemoglobin 29.2 pg (25-34); Mean Corpuscular Hgb Conc 32.7 g/dL (32-36); Mean Corpuscular Volume 89.5 fL (80-100); Mean Platelet Volume 10.1 fL (7.4-10.4); Monocytes # (auto) 0.42 K/uL (0.11-0.59); Monocytes % (auto) 10.2 %; Neutrophils # (auto) 2.56 K/uL (1.4-6.5); Neutrophils % (auto) 62.2 %; Platelet Count 301 K/uL (130-400); RDW Coefficient of Variation 15.2 % (11.5-14.5); RDW Standard Deviation 49.5 fL (36.4-46.3); Red Blood Count 4.48 M/uL (4.2-5.4); White Blood Count 4.12 K/uL (4.8-10.8)
[2020-11-01 12:53] LABS: D Dimer 330 ug/L FEU (0-500)
[2020-11-01 12:55] LABS: Alanine Aminotransferase 23 U/L (12-78); Albumin Level 4.1 gm/dl (3.4-5.0); Aspartate Aminotransferase 13 U/L (15-37); Blood Urea Nitrogen 33 mg/dl (7-18); Calcium 9.1 mg/dl (8.5-10.1); Carbon Dioxide 27 mmol/L (21-32); Chloride 109 mmol/L (98-107); Est GFR (African American) 79.9 ml/min; Est GFR (Non-African American) 68.9 ml/min; Glucose 102 mg/dl (70-99); Lipase 221 U/L (73-393); Magnesium 2.2 mg/dl (1.8-2.4); Potassium 3.4 mmol/L (3.5-5.1); Sodium 139 mmol/L (136-145)
[2020-11-01 13:00] LABS: Albumin Globulin Ratio 1.1 (0.9-2); Alkaline Phosphatase 62 U/L (45-117); Bilirubin,Total 0.6 mg/dl (0.2-1); Globulin 3.9 gm/dl (2.5-4.0); Troponin I < 0.015 ng/ml (0-0.045)
[2020-11-01] MEDS ORDERED: ONDANSETRON INJ 2 MG/ML 2 ML VIAL IV STA (13:06)
[2020-11-01] MEDS ORDERED: MoRPHine SULFATE 2 MG/ML CARP IV STA (13:06)
--- NOTE | 2020-11-01 13:25 | XRay Report ---
XR chest 1V portable HISTORY: Atypical Chest Pain COMPARISON: Chest 02/24/2019. FINDINGS: The heart is normal in size. No pleural effusions. No pneumothorax. No focal lung consolida tions to suggest pneumonia. No evidence for pulmonary edema. Questionable 1 cm nodular density within the left upper lobe is likely due to the overlapping scapula. IMPRESSION: 1. No acute process within the chest. 2. A questionable 1 cm nodular density within the left upper lobe is likely due to the overlapping sc apula. Follow-up nonemergent repeat PA and lateral views of the chest are recommended for further ralph luation. ACT 112: Positive. There are findings on this exam that require communication between the performing entity and the patient following Patient Test Result Information Act ([place] Act 112) guidelines. Electronically signed by: Torsten Blanca M.D. 11/01/2020 1:23 PM
[2020-11-01] MEDS ORDERED: OPTIRAY 320 125ml IV ONE (13:37)
--- NOTE | 2020-11-01 14:05 | CT Scan Report ---
CT head/brain wo con CLINICAL HISTORY: REGALADO COMPARISON STUDY: May 29, 2018 TECHNIQUE: Axial CT of the brain is performed from the vertex to the skull base. IV contrast was not administered for this examination. A dose lowering technique was utilized adhering to the principles of ALARA. CT DOSE: FINDINGS: No intra or extra-axial mass lesions are visualized. There is no CT evidence of acute cortical infarc tion. There is no evidence of midline shift. There is no acute hemorrhage. No acute depressed calvar ial fractures are visualized. There are patchy white matter hypodensities likely on a small vessel basis. There is no evidence of pathologic ventricular dilatation. There is no evidence of acute sinusitis IMPRESSION: No acute intracranial hemorrhage, no midline shift or space occupying lesions. ACT 112: Negative or not required by law. The above report was generated using voice recognition software. It may contain grammatical, syntax o r spelling errors. Electronically signed by: Lynn Rosa DO 11/01/2020 2:03 PM
--- NOTE | 2020-11-01 14:14 | CT Scan Report ---
CT ANGIOGRAM OF THE BRAIN; CT ANGIOGRAM OF THE NECK CLINICAL HISTORY: Dizziness. Neck pain. Palpitations. COMPARISON STUDY: Unenhanced CT of the brain performed concurrently on 11/01/2020. TECHNIQUE: Following the IV administration of 120 of Optiray 320, CT angiogram of the head and neck w as performed from the aortic arch to the vertex. Images are reviewed in the axial, sagittal, and lexus nal planes. 3-D MIPS images are created and assessed. IV contrast was administered without complicati on. All measurements were calculated based on NASCET criteria. A dose lowering technique was utilize d adhering to the principles of ALARA. CT DOSE: 967.79 mGy.cm FINDINGS: Brain parenchyma: There is age-related involutional change. There is no hemorrhage, mass effect, or e vidence of acute territorial ischemia by CT criteria. There is no evidence of enhancing mass lesion o n the angiogram phase images. The ventricles, sulci, and cisterns are prominent secondary to involuti onal change. Terrell-white matter differentiation is preserved. No extra-axial fluid collection is seen. Thoracic aorta: Visualized portions of the thoracic aorta are normal in caliber. The aortic arch demo nstrates standard 3-vessel anatomy. Right carotid arterial system: The right common carotid artery is widely patent, as are the right int ernal and external carotid arteries. Left carotid arterial system: The left common carotid artery is widely patent, as are the left internal corrosion specialist al and external carotid arteries. Mild calcified plaque is seen in the carotid bulb. Vertebral arteries: The vertebral arteries are widely patent bilaterally and codominant. Subclavian arteries: Widely patent bilaterally. Intracranial vasculature: There is atherosclerotic calcification of the cavernous carotid arteries. 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 The internal carotid arteries are patent at the skull base, as are the anterior and middle cerebral arter ies bilaterally. The vertebrobasilar system and posterior cerebral arteries are widely patent. The ve rtebral arteries are codominant. There is no aneurysm, high-grade stenosis, or focal vessel cut off s een throughout the intracranial circulation. Jugular veins: Patent bilaterally. Dural sinuses: Patent. Lung apices: Partially visualized upper lobe lung parenchyma appears clear. Soft tissues: The visualized pharyngeal soft tissues are normal in appearance noting angiographic pha se technique. The oropharyngeal airway appears widely patent. The salivary and thyroid glands are nor mal in appearance. No cervical lymphadenopathy is seen. Skeletal structures: The skeletal structures are osteopenic. The calvarium appears intact. The cervic al spine is maintained noting mild spondylosis. No lytic or blastic lesion is seen. There is a mild a nd age indeterminant superior plate compression deformity of T3. Orbits: The bony orbits are intact. Orbital contents are normal as visualized noting bilateral ocular lens implants. Sinuses and mastoids: The paranasal sinuses are clear. There is trace right mastoid effusion. The lef t mastoid air cells are well pneumatized. IMPRESSION: 1. There is no evidence of hemorrhage, mass effect, or acute territorial ischemia noting angiographic phase technique. 2. Unremarkable CT angiogram of the brain. 3. Unremarkable CT angiogram of the neck. ACT 112: Negative or not required by law. Electronically signed by: Sung Giang M.D. 11/01/2020 2:12 PM
--- NOTE | 2020-11-01 16:16 | History & Physical Report ---
Date of Service November 01, 2020 Assessment & Plan (1) Brain fog: Plan: Brain MRI as below. Multiple concussions from the past with memory issues. I suspect this is more from her anxiety and pain. (2) Dysphasia: Plan: More patient perception than clinical. Given patient concern however will get brain MRI to rule out stroke. Will defer dull stroke eval unless this is positive as given persistent symptoms this would not represent a TIA. (3) Headache: Plan: Suspect current headache is tension from her neck CTA neck reassuring K pad to neck. Volataren gel to neck PRN PT eval to encourage neck stretches (4) Chest pain: Plan: This appears most likely MSK as reproducible on exam. Given minor EKG changes will trend troponins and get dobutamine stress echo tomorrow if negative. Use flexeril PRN for muscle spasms. Replace potassium. Mg level normal. PT eval to encourage neck and thoracic spine stretches. (5) Sleep apnea: Plan: Mild - does not use CPAP Continue trazodone for sleep although notably may be contributing towards brain fog will continue on this chronic medication due to her anxiety (6) Anxiety: Plan: Continue on duloxetine and trazodone Plan: VTE prophylaxis - low risk, SCDs Disposition - observation on med/tele History of Present Illness Chief Complaint: Headache, chest pain, palpitations, shortness of breath, dizziness. Primary Care Provider: Wander Howard MD Lucia Saxena is a 70 year old female who presents to the ER with dizziness, palpitations, headache and chest pain. Symptoms started Friday. She reports being at a alliance party and because she is small having to look up a lot. She woke up with a headache the following day with associated dizziness (lightheaded) and generally feeling "weird". Associated heavy breathing, fast palpitations, difficulty putting a sentence together and memory issues. This was constant and lasted without relief for a few days. Currently her palpitations are gone but headache still there. She reportedly has had multiple concussions but id not hit her head this time. She called her neurologist today and couldn't see her so suggested coming to the ER. She has a history of migraines but her current headache is not her typical migraine. Occurring around the top of her head and neck, both sides. Chest pain appears to be seperate. Started; "I don't remember, but started after seeing her PCP", maybe yesterday, now resolved while in the ER. She saw her PCP 2 days ago who felt her symptoms were secondary to stress but dwain hamilton wasn't having the chest pain at that time. She reports having increased stress recently due to medical issues with dental problems, knee surgery, had to go back for diagnostic mammogram and a lesion removed from her face. She reports a history of mitral valve prolapse. Does not use CPAP for sleep apnea. In the ER initial troponin negative, mild EKG ST changes in anterior leads. CT head and CT angiogram of head/neck were essentially normal. CXR showed a questionable 1 cm nodular density within the left upper lobe. Allergies Allergy/AdvReac Type Severity Reaction Status Date / Time pesticide Allergy Mild Confusion Verified 10/30/20 09:55 adhesive AdvReac Mild RASH/BURN Verified 10/30/20 09:55 with old type bandaids Penicillins AdvReac Mild Rash Verified 10/30/20 09:55 Home Medications Medication Instructions Recorded Confirmed Type onabotulinumtoxinA 100 unit 100 unit DIRECTED 01/03/20 11/01/20 History solution for injection (Botox) oxybutynin chloride 10 mg 10 mg PO DAILY tab 07/06/20 11/01/20 History tablet,extended release 24 hr trazodone 50 mg tablet 50 mg PO DAILY 30 Days #30 tab 08/02/20 11/01/20 Rx baybrdesgg-pembqvddvjylf-geayyapj 2 tab PO Q6H PRN #12 tab 08/16/20 11/01/20 Rx 50 mg-325 mg-40 mg tablet cyclobenzaprine 10 mg tablet 5 mg PO DAILY PRN #20 tab 09/14/20 11/01/20 Rx duloxetine 30 mg capsule,delayed 30 mg PO DAILY #30 cap 10/17/20 11/01/20 Rx release (Cymbalta) metronidazole 0.75 % vaginal gel 1 appful VAGINAL DAILY 5 Days #70 g 10/17/20 11/01/20 Rx (Metrogel Vaginal) buspirone 10 mg tablet 10 mg PO BID #60 tab 10/30/20 11/01/20 Rx sumatriptan succinate 100 mg 100 mg PO DAILY PRN 11/01/20 11/01/20 History tablet (Imitrex) Past Med/Surg History Medical History Anxiety Arthritis of knee Chronic back pain Concussion X 3 2018(MAR,APR,MAY) 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-WENT TO [employer]" Depression Fibromyalgia History of colon polyps Insomnia Memory loss NO ISSUES CURRENTLY PER PT Migraine headache BOTOX INJECTIONS FOR TX (EVERY 90 DAYS) Mitral valve prolapse NO PREMED WITH DENTAL Neurologic gait dysfunction RELATED TO CONCUSSIONS Occipital neuralgia Osteoarthritis Papilloma of breast Peripheral neuropathy Postmenopausal atrophic vaginitis Sleep apnea "MILD" NO DEVICE USED Urinary frequency Vitamin D deficiency Vitamin D deficiency disease Surgical History History of arthroscopy RT KNEE History of blepharoplasty RT/LEFT History of colonoscopy with polypectomy History of dilatation and curettage UTERINE ALBATION History of root canal procedure History of surgical procedure on mouth dental implant History of tooth extraction Status post left partial knee replacement Status post tubal ligation Family History Father Family history of diabetes mellitus Family hx colonic polyps Colorectal cancer Grandmother (Paternal) Family history of diabetes mellitus Sister Family history of diabetes mellitus Ovarian cancer Mother Breast cancer Grandfather (Maternal) Myocardial infarction Other No family history of adverse response to anesthesia Denies family history of Prostate cancer Social History Smoking Status: Never smoker Second Hand Exposure: No; Hx Alcohol Use: Yes Alcohol type: beer Hx Substance Use: No Preferred Language: Sinhala Communication Ability: Effective Visual Impairment: No Limitations Hearing Ability: Normal French Folder Required: No Beliefs That Will Affect Care: None marital status: Current Living Situation: Alone current occupational status: retired Feels Safe at Home: Yes Dental Care, Regularly: Yes Physical Activity Frequency: Does not Exercise Seatbelt Use: always Sunscreen Use: Yes Assistive Devices: Cane and Glasses Review of Systems Review of Systems: All systems reviewed & are unremarkable except as noted in HPI & below Physical Exam Constitutional: WD/WN, vitals as above Eyes: PERRL, conjunctivae normal, anicteric sclerae ENMT: external ear and nose normal, oropharynx normal Neck: trachea midline, no thyromegaly normal visual inspection Respiratory: normal respiratory effort, lungs clear to auscultation Cardiovascular: RRR, no murmur, no edema Chest (Breasts): Additional Comments: Reproducible chest pain on right mukesh of her sternum Gastrointestinal (Abdomen): normal bowel sounds, soft, nontender, no hepatosplenomegaly Musculoskeletal: no cyanosis or clubbing, extremities motor strength 5/5 Trapezius neck tightness and pain on palpation Skin: no rashes, warm and dry Neurologic: moves all extremities and awake; no focal motor deficits and not confused Speech / Cognition: normal speech, no expressive aphasia, no receptive aphasia and normal cognition Motor/Sensory: no tremor and no sensory deficit Cranial Nerves: PERRL, EOM intact bilaterally, normal facial strength, able to rotate head bilaterally, able to elevate shoulders bilaterally, no nystagmus and symmetric palate elevation Psychiatric: A+Ox3, euthymic affect Results & Data Results & Data ([facility]) Vital Signs (Past 12 Hours) Vital Signs Temp Pulse Pulse Resp BP BP Pulse Ox 11/01/20 16:02 86 18 152/98 H 97 11/01/20 15:00 88 17 155/92 H 97 11/01/20 14:31 84 19 152/98 H 98 11/01/20 14:00 82 22 146/107 H 99 11/01/20 13:30 135/109 H 11/01/20 13:00 76 12 158/97 H 11/01/20 12:30 86 15 142/91 H 11/01/20 12:00 81 12 133/88 11/01/20 11:45 89 20 159/89 H 96 11/01/20 11:35 36.6 C 107 H 20 158/77 H 95 Diagnostic Findings XR chest 1V portable IMPRESSION: 1. No acute process within the chest. 2. A questionable 1 cm nodular density within the left upper lobe is likely due to the overlapping scapula. Follow-up nonemergent repeat PA and lateral views of the chest are recommended for further evaluation. CT head/brain wo con IMPRESSION: No acute intracranial hemorrhage, no midline shift or space occupying lesions. CT ANGIOGRAM OF THE BRAIN; CT ANGIOGRAM OF THE NECK IMPRESSION: 1. There is no evidence of hemorrhage, mass effect, or acute territorial ischemia noting angiographic phase technique. 2. Unremarkable CT angiogram of the brain. 3. Unremarkable CT angiogram of the neck. Medications Administered ER Medications Given: Nitroglycerin 2% 0.5 inch patch Morphine 2mg IV Ondansetron 4mg IV ECG Indication: chest pain Rate (beats per minute): 97 Rhythm: normal sinus Findings: + other (non-specific ST changes in anterior leads, poor R wave progression) Comparison ECG Date: from (August 26, 2017) Change: the following changes noted (Mild ST changes in anterior lead, poor R wave progression) Code Status & VTE Plan Code Status Full VTE Prophylaxis Plan VTE Prophylaxis will be ordered: Yes Reason for no VTE drug order: Treatment not indicated PG Care Time/CCT Total # of Minutes Spent Total Time Spent with Patient: Total time spent is greater than 50% in coordination of care (as documented) at patient's floor/unit and/or counseling patient: Coding Level of Care Code INT OBSERVATION CARE 70M LVL 3 Diagnoses Brain fog R41.89 Dysphasia R47.02 Headache R51.9 Chest pain R07.9 Sleep apnea G47.30 Anxiety F41.9
[2020-11-01] MEDS ORDERED: POTASSIUM CHLORIDE CRTAB 20 MEQ TABCR PO STA (16:58)
--- NOTE | 2020-11-01 17:07 | Electrocardiogram Report ---
Test Reason : Blood Pressure : / mmHG Vent. Rate : 097 BPM Atrial Rate : 097 BPM P-R Int : 144 ms QRS Dur : 088 ms QT Int : 354 ms P-R-T Axes : 050 -56 058 degrees QTc Int : 449 ms Normal sinus rhythm Possible Left atrial enlargement Left anterior fascicular block Poor R wave progression, consider anterior ID vs. lead placement vs. LVH Abnormal ECG When compared with ECG of 26-AUG-2017 11:37, No significant change Confirmed by Adi Heaton ([id number]) on 11/01/2020 5:07:08 PM Referred By: REFERRED SELF Confirmed By:Adi Heaton
[2020-11-01] MEDS ORDERED: SUMAtriptan succinate 100 MG TAB PO PRN (17:44)
[2020-11-01] MEDS ORDERED: DICLOFENAC SOD 1% GEL 100 GM TUBE EXT PRN (17:44)
[2020-11-01] MEDS ORDERED: ACETAMINOPHEN 325 MG TAB PO PRN (17:44)
[2020-11-01] MEDS ORDERED: CYCLOBENZAPRINE HCL 5 MG TAB PO PRN (17:55)
[2020-11-01] MEDS: KETOROLAC TROMETHAMINE 15 MG/ML VIAL IV PRN ×2 (18:32→23:28)
[2020-11-01] MEDS: busPIRone 5 MG TAB PO SCH (19:42)
--- NOTE | 2020-11-01 20:27 | Magnetic Resonance Report ---
Brain MRI WITHOUT CONTRAST HISTORY: Dizziness. Headaches. expressive dysphasia TECHNIQUE: Multiplanar multisequence MRI of the brain was performed without the use of contrast. COMPARISON STUDY: Head CT 11/01/2020. Brain MRI 05/28/2018. FINDINGS: There are no areas of restricted diffusion to suggest acute infarction. The paranasal sinus es are clear. The ventricles and sulci are within normal limits for age. There is no mass, hematoma, midline shift. The major vascular flow-voids at the skull base are well maintained. A 4 mm pineal gla nd cyst, unchanged. A few scattered punctate foci of T2 hyperintensity seen within the periventricula r and subcortical white matter which remain unchanged. This favors mild microvascular ischemic change . 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 This is also stable and is of doubtful clinical significance. Evidence for prior bilateral lens replacement. A single opacified right mastoid air cell. The left mastoid air cells are clear. Th is is also unchanged. IMPRESSION: No significant change compared to the prior study. No acute intracranial abnormality. ACT 112: Negative or not required by law. Electronically signed by: Torsten Blanca M.D. 11/01/2020 8:26 PM
[2020-11-01] MEDS ORDERED: traZODone HCL 50 MG TAB PO SCH (21:00)
[2020-11-02] MEDS ORDERED: CYCLOBENZAPRINE HCL 5 MG TAB PO PRN (00:09)
[2020-11-02 04:41] LABS: Basophils # (auto) 0.01 K/uL (0-0.2); Basophils % (auto) 0.2 %; Eosinophils # (auto) 0.13 K/uL (0-0.5); Eosinophils % (auto) 2.9 %; Hematocrit (blood only) 37.8 % (37-47); Hemoglobin 12.3 g/dL (12.0-16.0); Immature Granulocytes # (auto) 0.01 K/uL (0.00-0.02); Immature Granulocytes % (auto) 0.2 %; Lymphocytes # (auto) 1.43 K/uL (1.2-3.4); Lymphocytes % (auto) 32.4 %; Mean Corpuscular Hemoglobin 29.3 pg (25-34); Mean Corpuscular Hgb Conc 32.5 g/dL (32-36); Mean Platelet Volume 9.5 fL (7.4-10.4); Monocytes # (auto) 0.76 K/uL (0.11-0.59); Monocytes % (auto) 17.2 %; Neutrophils # (auto) 2.07 K/uL (1.4-6.5); Neutrophils % (auto) 47.1 %; Platelet Count 273 K/uL (130-400); RDW Standard Deviation 49.3 fL (36.4-46.3); White Blood Count 4.41 K/uL (4.8-10.8)
[2020-11-02 05:06] LABS: BUN Creatinine Ratio 45.9 (10-20); Blood Urea Nitrogen 39 mg/dl (7-18); Calcium 9.1 mg/dl (8.5-10.1); Carbon Dioxide 28 mmol/L (21-32); Chloride 110 mmol/L (98-107); Creatinine Clr Calc Pharmacy 50.6 ml/min; Est GFR (Non-African American) 69.9 ml/min; Glucose 91 mg/dl (70-99); Potassium 4.1 mmol/L (3.5-5.1); Sodium 140 mmol/L (136-145)
[2020-11-02 05:09] LABS: Troponin I < 0.015 ng/ml (0-0.045)
[2020-11-02] MEDS: busPIRone 5 MG TAB PO SCH (08:04)
[2020-11-02] MEDS ORDERED: DULoxetine HCL 30 MG CAP PO SCH ×2 (09:00→21:00)
[2020-11-02] MEDS ORDERED: OXYBUTYNIN CHLORIDE XL 5 MG TABCR PO SCH (09:00)
[2020-11-02] MEDS ORDERED: ATROPINE SULFATE 0.1 MG/ML 10ML SYR IV ONE (10:46)
[2020-11-02] MEDS ORDERED: METOPROLOL TARTRATE 1 MG/ML VIAL IV ONE (10:46)
[2020-11-02] MEDS ORDERED: DOBUTamine HCL 12.5 MG/ML 20 ML VIAL IV ONE (10:46)
--- NOTE | 2020-11-02 13:24 | XCELERA ---
[id number] \\[id number]_[id number]}___[id number]
--- NOTE | 2020-11-02 14:41 | Discharge Summary ---
Date of Service November 02, 2020 Admission HPI Per Admitting Provider Lucia Saxena is a 70 year old female who presents to the ER with dizziness, palpitations, headache and chest pain. Symptoms started Friday. She reports being at a libertarian and because she is small having to look up a lot. She woke up with a headache the following day with associated dizziness (lightheaded) and generally feeling "weird". Associated heavy breathing, fast palpitations, difficulty putting a sentence together and memory issues. This was constant and lasted without relief for a few days. Currently her palpitations are gone but headache still there. She reportedly has had multiple concussions but id not hit her head this time. She called her neurologist today and couldn't see her so suggested coming to the ER. She has a history of migraines but her current headache is not her typical migraine. Occurring around the top of her head and neck, both sides. Chest pain appears to be seperate. Started; "I don't remember, but started after seeing her PCP", maybe yesterday, now resolved while in the ER. She saw her PCP 2 days ago who felt her symptoms were secondary to stress but she wasn't having the chest pain at that time. She reports having increased stress recently due to medical issues with dental problems, knee surgery, had to go back for diagnostic mammogram and a lesion removed from her face. She reports a history of mitral valve prolapse. Does not use CPAP for sleep apnea. In the ER initial troponin negative, mild EKG ST changes in anterior leads. CT head and CT angiogram of head/neck were essentially normal. CXR showed a questionable 1 cm nodular density within the left upper lobe. Principal Diagnosis Tension headache Musculoskeletal chest and neck pain Discharge Exam Constitutional WD/WN, vitals as above Eyes + anicteric sclerae; normal pupil size ENMT external ear and nose normal, oropharynx normal Respiratory normal respiratory effort, lungs clear to auscultation Cardiovascular RRR, no murmur, no edema Musculoskeletal Chest pain lower parasterum reproducible on exam. Trapezius muscle tightness. Neurologic moves all extremities and awake; not confused Psychiatric A+Ox3, euthymic affect Discharge Data Allergies Allergy/AdvReac Type Severity Reaction Status Date / Time pesticide Allergy Mild Confusion Verified 10/30/20 09:55 adhesive AdvReac Mild RASH/BURN Verified 10/30/20 09:55 with old type bandaids Penicillins AdvReac Mild Rash Verified 10/30/20 09:55 Consultations 11/01/20 14:50 ED Decision to Admit Stat Ordered Studies 11/01/20 13:07 CT angio head w con Stat CT angio neck with con Stat IMPRESSION: 1. There is no evidence of hemorrhage, mass effect, or acute territorial ischemia noting angiographic phase technique. 2. Unremarkable CT angiogram of the brain. 3. Unremarkable CT angiogram of the neck. CT head/brain wo con Stat IMPRESSION: No acute intracranial hemorrhage, no midline shift or space occupying lesions. 11/01/20 17:44 MR brain wo con Urgent IMPRESSION: No significant change compared to the prior study. No acute intracranial abnormality. Hospital Course (1) Brain fog: (2) Dysphasia: (3) Headache: (4) Chest pain: (5) Sleep apnea: (6) Anxiety: Lucia Jimenez is a 70 year old female observed overnight at [facility] from November 01 - 2020 due to a number of concerns including chest pain, dizziness, headache and palpitations. Telemetry revealed no arrhythmia on cardiac nurse overnight. CT head, CTA head/neck and Brain MRI was reassuringly negative for any acute intracranial abnormality. Serial troponins negative and dobutamine stress echocardiogram was negative for inducible ischemia. Her exam was consistent with musculoskeletal neck and chest pain suspect causing her tension headache. Possibly brought from multitude of factors including abnormal gait from recent knee surgery, multiple stress factors and extension of her head while talking to people over the weekend. She was advised regarding stretching exercises and prescribed Toradol as needed as when given intravenously this has given her good relief from her pain. Total Time Total Time Spent Total Time Spent (In Minutes): 35 Discharge Plan Discharge Items Patient Disposition: Home - Self-Care Reason For Visit: CHEST PAIN RUL OUT [place] Discharge Diagnosis: Tension headache Musculoskeletal chest and neck pain Activity: Resume your previous activity Non-emergency contact: Primary Care Provider Call non-emergency contact if: you have any medication questions and your symptoms worsen Follow-up/Referrals: Wander Howard MD [Primary Care Provider] - Diet: Regular Addtl Attending Provider Instructions: You were observed overnight at [facility] from November 01 - 2020 due to chest pain, dizziness, headache and palpitations. No arrythmia on cardiac nurse overnight. Brain MRi was negative for stroke. Troponins negative for a heart attack and dobutamine stress echocardiogram was negative for angina. Suspect your symptoms are most likely musculoskeletal in nature as discussed. Use stretching exercises for your neck and thoracic spine to help alleviate symptoms. Chiropractor adjustments may be helpful. Use toradol as needed for the next 4 days for pain and inflammatory relief. Pending Studies at Discharge: No Stand-Alone Forms: My [facility] [id number], Smoking Cessation Medications and DC Order Prescriptions: New ketorolac 10 mg tablet 10 mg PO Q6H PRN (Reason: pain) 4 Days Qty: 16 RF: 0 Continued trazodone 50 mg tablet 50 mg PO DAILY 30 Days Qty: 30 RF: 3 csvpltpfyg-szucbkhrwdyxi-odih 50-325-40 mg tablet 2 tab PO Q6H PRN (Reason: headache) Qty: 12 RF: 0 cyclobenzaprine 10 mg tablet 5 mg PO DAILY PRN (Reason: muscle spasm) Qty: 20 RF: 1 oxybutynin chloride 10 mg tablet extended release 24hr 10 mg PO DAILY RF: 0 Hold Instructions: Home Medication placed on hold at Doctor's office buspirone 10 mg tablet 10 mg PO BID Qty: 60 RF: 2 duloxetine [Cymbalta] 30 mg capsule,delayed release(DR/EC) 30 mg PO DAILY Qty: 30 RF: 3 metronidazole [Metrogel Vaginal] 0.75 % gel 1 appful vaginal DAILY 5 Days Qty: 70 RF: 2 Botox 100 unit Recon Soln 100 unit DIRECTED RF: 0 sumatriptan succinate [Imitrex] 100 mg tablet 100 mg PO DAILY PRN (Reason: Migraine Headache) RF: 0 Discharge Orders: Discharge Order (Routine); Ordered 11/02/20 Ordered By: Manoj Mello Admission Data Admit Date/Time: 11/01/20 17:36 Attending Provider: Manoj Mello Admit Provider: Manoj Mello Primary Care Provider: Wander Howard V. Other Providers: Justice Elias Coding Level of Care Code 04124 OBS Care - Discharge Diagnoses Brain fog R41.89 Dysphasia R47.02 Headache R51.9 Chest pain R07.9 Chest pain type: unspecified Sleep apnea G47.30 Anxiety F41.9
== END 2020-11-02 15:47 | disposition home or self-care (01) ==
LOC: 2N 11:29 → ED 11:29 → 2N 17:12

== ENCOUNTER 2024-03-27 13:07 | Inpatient (IN) ==
[2024-03-27] MEDS: ACETAMINOPHEN 1,000 MG/100 ML VIAL IV STA (13:58)
[2024-03-27 14:12] LABS: Hematocrit (blood only) 31.2 % (37.0-47.0); Hemoglobin 10.2 g/dl (12.0-16.0); Mean Corpuscular Hemoglobin 28.3 pg (25.0-34.0); Mean Corpuscular Hgb Conc 32.7 g/dL (32.0-36.0); Mean Corpuscular Volume 86.4 fL (80.0-100.0); Mean Platelet Volume 9.6 fL (9.4-12.4); Platelet Count 342 K/uL (130-400); RDW Coefficient of Variation 14.6 % (11.5-14.5); RDW Standard Deviation 45.9 fL (36.4-46.3); Red Blood Count 3.61 M/uL (4.20-5.40)
--- NOTE | 2024-03-27 14:13 | Emergency Department Note ---
Impression & Plan Sepsis, Pneumonia, Leukocytosis, Elevated troponin, Elevated brain natriuretic peptide (BNP) level, Acute hypoxemic respiratory failure ED Provider Note HISTORY OF PRESENT ILLNESS: Patient is a 73-year-old female presenting with shortness of breath, cough and right-sided chest pain. Patient reports that she returned yesterday from [place] after going to the [employer] game. States that she started having a nonproductive cough and shortness of breath. Reports that she has pain on the right lateral side of her chest. States that she was unable to sleep last night secondary to feeling so short of breath. Reports that she "feels like her lungs are rattling." She denies any DVT or PE history. She is not on any anticoagulation. Unknown recent sick contact exposures. Denies any nausea or vomiting. Denies any history of cardiac stents. ROS: as above PHYSICAL EXAM: Constitutional: Patient appears in no acute distress. HENT: Head: Normocephalic and atraumatic. Eyes: EOMI, PERRL Mouth/Throat: Mucous membranes moist. Neck: Trachea midline. Neck supple. Cardiovascular: Tachycardic with regular rhythm. No murmurs, rubs or gallops. Intact distal pulses. Pulmonary/Chest: No respiratory distress. Breath sounds clear and equal bilaterally. No wheezes or rales. Abdominal: Abdomen soft, no tenderness, rebound or guarding. Musculoskeletal: No edema, tenderness or deformity noted. Skin: Warm and dry. No rash, erythema, pallor or cyanosis Psychiatric: Appropriate mood and affect for situation. Neurological: Alert and keenly responsive. CN II-XII grossly intact, moving all extremities equally and fully. MDM: - Vitals signs showed hypertension, fever, hypoxia and tachycardia. Patient started on 2 L nasal cannula with improvement of her hypoxia. - History obtained via patient. History as above. - Chronic conditions affecting care: Restless leg syndrome; anxiety/depression; fibromyalgia; HTN - Differential diagnoses include, but are not limited to: PE; pneumonia; ACS; electrolyte abnormality; viral syndrome - Order placed for continuous cardiac monitoring. At this time, monitor showed rate of 97 bpm with normal sinus rhythm, per my interpretation. - External medical records reviewed. Pain management note dated 02/09/2024 was reviewed. Patient follows in their clinic for migraine headaches. She gets Botox injections for migraines. - EKG interpreted by myself showed normal sinus rhythm. Rate tachycardic at 103 bpm. QT 330. No acute ischemic changes. - Laboratory workup interpreted by myself showed leukocytosis (WBC 20.60); stable electrolytes; hyperglycemia (glucose 149) without evidence of DKA; elevated troponin (14.3); elevated BNP (148); normal lactate; normal procalcitonin - Blood cultures obtained - CXR shows right lower lobe pneumonia, per my interpretation. - Given 1g IV acetaminophen for fever - Given 2500 cc NS in ER. Patient sepsis fluid volume calculation based on actual body weight is 2313.0 mL. - Patient given IV cefepime + PO azithromycin for antibiotic coverage. - Viral respiratory panel negative - UA ordered but not yet obatined. - Discussion was had with medical case manager about patient's case and need for admission - Hospitalist, Dr. Mayfield, consulted for admission - Patient admitted to [facility] for further evaluation and management. ASSESSMENT AND PLAN: Diagnosis: Sepsis; pneumonia; leukocytosis; elevated troponin; elevated BNP; acute hypoxemic respiratory failure Plan: admit Past Med/Surg History Problem List (Updated 03/27/24 @ 14:58 by Satish Mayfield MD) Hyperglycemia Pneumonia involving right lung Acute hypoxemic respiratory failure (Acute) Elevated brain natriuretic peptide (BNP) level (Acute) Elevated troponin (Acute) Leukocytosis (Acute) Pneumonia (Acute) Sepsis (Acute) Insomnia Post-concussion headache Prediabetes Allergy to sulfa drugs Allergy to penicillin History of Lyme disease Excessive sleepiness Fatigue Disordered eating Left knee pain Ductal hyperplasia of breast Sleep apnea "MILD" NO DEVICE USED Occipital neuralgia HX Migraine headache BOTOX INJECTIONS FOR TX (EVERY 90 DAYS) PLMD (periodic limb movement disorder) RLS (restless legs syndrome) Anosmia Bilateral tinnitus Worse in left ear Sensorineural hearing loss (SNHL) of both ears Peripheral neuropathy Urge incontinence of urine (Acute) Post concussion syndrome Cervicalgia Vitamin D deficiency disease Obesity Depression with anxiety Impaired fasting glucose Palpitations (Acute) Osteoarthritis Medical History Lyme disease Severe headache Tiredness Gait disturbance Septic arthritis of shoulder 2010. MRSA, after shoulder injection. treated by Dr Zhang. Nasal congestion Tinnitus of left ear Left-sided face pain Dizziness Headache Dysphasia Brain fog Hypertension Low hemoglobin Drug-induced weight gain Lyme arthritis Chronic back pain Sacroiliitis Memory loss NO ISSUES CURRENTLY PER PT Concussion X 3 2018(MAR,APR,MAY) 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-WENT TO "[employer]" Fibromyalgia Depression HX Anxiety History of colon polyps Mitral valve prolapse NO PREMED WITH DENTAL Surgical History History of oral surgery APR 05 2021 - 3 EXTRACTIONS AND 3 IMPLANTS - HEALING Status post left partial knee replacement History of colonoscopy with polypectomy History of surgical procedure on mouth dental implant History of root canal procedure History of dilatation and curettage UTERINE ALBATION History of arthroscopy RT KNEE History of tooth extraction History of blepharoplasty RT/LEFT Status post tubal ligation HX Family History Father Family history of diabetes mellitus Family hx colonic polyps Colorectal cancer Heart disease Hypertension Grandmother (Paternal) Family history of diabetes mellitus Sister Family history of diabetes mellitus Ovarian cancer Breast cancer Cervical cancer Mother Breast cancer Grandfather (Maternal) Myocardial infarction Other No family history of adverse response to anesthesia No family history of bleeding disorder Denies family history of Prostate cancer Social History Smoking Status: Never smoker Second Hand Exposure: No; Do You Dip or Chew Tobacco: No; Hx Alcohol Use: Yes (Socially ) Alcohol type: beer and wine Alcohol Intake Frequency: Monthly or Less Hx Substance Use: No Preferred Language: Dutch Communication Ability: Effective Visual Impairment: No Limitations Hearing Ability: Normal Manager Story Required: No Beliefs That Will Affect Care: None marital status: Current Living Situation: Alone current occupational status: retired 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 How many Children do You have: 0 Feels Safe at Home: Yes Childhood Exposure to Second-Hand Smoke: No Diet: regular during the past year weight has: increased > 10 lbs Dental Care, Regularly: Yes Physical Activity Frequency: Does not Exercise Seatbelt Use: always Sunscreen Use: Yes Assistive Devices: Cane and Glasses Allergies Allergies Allergy/AdvReac Type Severity Reaction Status Date / Time doxycycline Allergy Intermediate RASH/Headac Verified 02/09/24 10:04 he Penicillins Allergy Intermediate Rash Verified 02/09/24 10:04 Sulfa (Sulfonamide Allergy Intermediate Rash Verified 02/09/24 10:04 Antibiotics) adhesive Allergy Mild RASH/BURN Verified 02/09/24 10:04 WITH BANDAIDS buspirone AdvReac Intermediate Palpitation Verified 02/09/24 10:04 s pesticide AdvReac Intermediate Confusion Verified 02/09/24 10:04 Home Meds Home Medications Medication Instructions Recorded Confirmed onabotulinumtoxinA 100 unit 100 unit subcut DIRECTED 04/16/23 02/09/24 solution for injection (Botox) Previous Rx's Medication Instructions Recorded sumatriptan succinate 100 mg 100 mg PO UD PRN Migraine Headache 07/16/22 tablet (Imitrex) #9 tabs silver sulfadiazine 1 % topical 1 applic topical BID #25 grams 05/21/23 cream (Silvadene) metformin 500 mg tablet 500 mg PO HS #90 tabs 06/03/23 naltrexone 50 mg tablet 50 mg PO DAILY #90 tabs 12/25/23 cyclobenzaprine 10 mg tablet 10 mg PO HS PRN MUSCLE SPASMS #30 12/30/23 tabs semaglutide (weight loss) 0.5 0.5 mg (0.5 mL) subcut Q7D #2 mL 12/30/23 mg/0.5 mL subcutaneous pen injector lorazepam 0.5 mg tablet 0.5 mg PO HS #30 tabs 02/16/24 cephalexin 500 mg capsule 500 mg PO Q6H 7 days #28 caps 02/23/24 fluconazole 150 mg tablet 150 mg PO Q3D 2 doses #2 tabs 02/23/24 Results & Data (ED) Vital Signs Vital Signs - 24 hr 03/27/24 13:15 03/27/24 13:36 03/27/24 13:46 Temperature 38.0 C H Temperature Source Temporal Artery Scan Pulse Rate 117 H 107 H Pulse Rate [Apical] Pulse Rate [Right Finger] 106 H Pulse Rhythm Regular Pulse Rhythm [Apical] Pulse Rhythm [Right Finger] Regular Pulse Strength Normal Pulse Strength [Apical] Pulse Strength [Right Finger] Normal Respiratory Rate 18 20 Respiratory Effort / Characteristics Non-Labored Spontaneous Non-Labored Respiratory Depth Normal Normal Respiratory Pattern Regular Regular Blood Pressure 149/72 H Blood Pressure [Right Arm] 152/91 H Blood Pressure Mean 97 Blood Pressure Mean [Right Arm] 111 Blood Pressure Position Sitting Blood Pressure Position [Right Arm] Sitting Pulse Oximetry 93 90 Oxygen Delivery Method Room Air Room Air Oxygen Flow Rate Sepsis Recent Fever Within 48 Hours No Sepsis New/Unexplained Change in Mental Status N/A Sepsis Action Taken by Nursing No Action Required Oxygen Flow Rate - Titration Pulse Oximetry Post Tiitration 03/27/24 13:49 03/27/24 14:02 03/27/24 14:02 Temperature Temperature Source Pulse Rate 108 H Pulse Rate [Apical] 107 H Pulse Rate [Right Finger] Pulse Rhythm Regular Pulse Rhythm [Apical] Regular Pulse Rhythm [Right Finger] Pulse Strength Pulse Strength [Apical] Normal Pulse Strength [Right Finger] Respiratory Rate 24 24 Respiratory Effort / Characteristics Non-Labored Spontaneous Respiratory Depth Normal Respiratory Pattern Regular Blood Pressure Blood Pressure [Right Arm] 152/91 H Blood Pressure Mean Blood Pressure Mean [Right Arm] 111 Blood Pressure Position Blood Pressure Position [Right Arm] Semi-fowlers Pulse Oximetry 89 L 89 L 96 Oxygen Delivery Method Nasal Cannula Room Air Nasal Cannula Oxygen Flow Rate 0 2 Sepsis Recent Fever Within 48 Hours Sepsis New/Unexplained Change in Mental Status Sepsis Action Taken by Nursing Oxygen Flow Rate - Titration 2 Pulse Oximetry Post Tiitration 94 03/27/24 14:12 03/27/24 14:24 Temperature Temperature Source Pulse Rate 100 H 101 H Pulse Rate [Apical] Pulse Rate [Right Finger] Pulse Rhythm Pulse Rhythm [Apical] Pulse Rhythm [Right Finger] Pulse Strength Pulse Strength [Apical] Pulse Strength [Right Finger] Respiratory Rate 20 Respiratory Effort / Characteristics Respiratory Depth Respiratory Pattern Blood Pressure Blood Pressure [Right Arm] Blood Pressure Mean Blood Pressure Mean [Right Arm] Blood Pressure Position Blood Pressure Position [Right Arm] Pulse Oximetry 95 95 Oxygen Delivery Method Nasal Cannula Nasal Cannula Oxygen Flow Rate 2 2 Sepsis Recent Fever Within 48 Hours Sepsis New/Unexplained Change in Mental Status Sepsis Action Taken by Nursing Oxygen Flow Rate - Titration Pulse Oximetry Post Tiitration Laboratory Data 03/27/24 13:50 03/27/24 13:50 Lab Results 03/27/24 03/27/24 03/27/24 Range/Units 13:50 13:51 14:02 WBC 20.60 H (4.8-10.8) K/ul RBC 3.61 L (4.20-5.40) M/uL Hgb 10.2 L (12.0-16.0) g/dl POC Hgb 10.5 L (12.0-16.0) g/dl Hct 31.2 L (37.0-47.0) % POC Hct 31 L (37-47) % MCV 86.4 (80.0-100.0) fL MCH 28.3 (25.0-34.0) pg MCHC 32.7 (32.0-36.0) g/dL RDW Std Deviation 45.9 (36.4-46.3) fL RDW Coeff of Francia 14.6 H (11.5-14.5) % Plt Count 342 (130-400) K/uL MPV 9.6 (9.4-12.4) fL Immature Gran % (Auto) 8.8 % Neut % (Auto) 84.2 % Lymph % (Auto) 2.9 % [place] % (Auto) 3.4 % Eos % (Auto) 0.5 % Baso % (Auto) 0.2 % Neut # (Auto) 17.33 H (1.40-6.50) K/uL Lymph # (Auto) 0.60 L (1.20-3.40) K/uL [place] # (Auto) 0.71 H (0.11-0.59) K/uL Eos # (Auto) 0.10 (0.00-0.50) K/uL Baso # (Auto) 0.05 (0.00-0.20) K/uL Immature Gran # (Auto) 1.81 H (0.01-0.20) K/uL POC Sodium 138 (135-144) mmol/L Sodium 139 (136-145) mmol/L POC Potassium 4.0 (3.3-5.0) mmol/L Potassium 4.0 (3.5-5.1) mmol/L POC Chloride 105 (101-112) mmol/L Chloride 105 (98-107) mmol/L Carbon Dioxide 25 (21-32) mmol/L POC Total CO2 23 L (24-31) mmol/L Anion Gap 9 (3-11) POC Anion Gap 15.0 L (16-25) mmol/L POC BUN 24 H (7-18) mg/dl BUN 26 H (6-23) mg/dl Creatinine 0.89 (0.6-1.2) mg/dl POC Creatinine 0.9 (0.6-1.3) mg/dl Est Cr Clr Drug Dosing 50.0 ml/min eGFR 68.84 BUN/Creatinine Ratio 29.2 H (10-20) Glucose 149 H (70-99(Fasting)) mg/dl POC Glucose (other) 148 H (70-99) mg/dl Lactate 1.3 (0.4-2.0) mmol/L Calcium 8.9 (8.6-10.3) mg/dl POC Ioniz Calcium K[place] 1.18 (1.12-1.32) mmol/l Magnesium 1.8 (1.7-2.4) mg/dl Total Bilirubin 0.5 (0.2-1.0) mg/dl Direct Bilirubin 0.2 (0-0.2) mg/dl AST 13 (13-39) U/L ALT 18 (7-52) U/L Alkaline Phosphatase 87 (34-104) U/L Troponin I High Sens 14.3 H (0-14) pg/ml B-Natriuretic Peptide 148 H (0-100) pg/ml Total Protein 6.5 (6.0-8.3) gm/dl Albumin 3.3 L (3.4-5.0) gm/dl Procalcitonin 0.20 (0-0.5) ng/ml Adenovirus (PCR) Not Detected (NotDetected) B. pertussis DNA (PCR) Not Detected (NotDetected) B.parapertussis DNA PCR Not Detected (NotDetected) C. pneumoniae DNA (PCR) Not Detected (NotDetected) Coronavirus OC43 (PCR) Not Detected (NotDetected) Coronavirus HKU1 (PCR) Not Detected (NotDetected) Coronavirus 229E (PCR) Not Detected (NotDetected) SARS-CoV-2 (PCR) Not Detected (NotDetected) Coronavirus NL63 (PCR) Not Detected (NotDetected) Human Metapneumovir PCR Not Detected (NotDetected) Influenza Type A (PCR) Not Detected (NotDetected) Influenza Type B (PCR) Not Detected (NotDetected) M. pneumoniae (PCR) Not Detected (NotDetected) Parainfluenza 1 (PCR) Not Detected (NotDetected) Parainfluenza 2 (PCR) Not Detected (NotDetected) Parainfluenza 3 (PCR) Not Detected (NotDetected) Parainfluenza 4 (PCR) Not Detected (NotDetected) RSV (PCR) Not Detected (NotDetected) Entero/Rhino (PCR) Not Detected (NotDetected) Administered Medications Discontinued Medications Azithromycin (Azithromycin 250 Mg Tab) 500 mg PO NOW ONE Stop: 03/27/24 14:17 Last Admin: 03/27/24 15:22 Dose: 500 mg Documented By: BAY Acetaminophen (Ofirmev) 1,000 mg in 100 mls @ 400 mls/hr IV NOW STA Stop: 03/27/24 14:01 Last Infusion: 03/27/24 14:13 Dose: Infused Documented By: Admin: 03/27/24 13:58 Dose: 400 mls/hr Documented By: Cefepime HCl (Maxipime 2000mg) 2,000 mg in 20 mls @ 5 mls/min IV NOW STA; Protocol Stop: 03/27/24 14:19 Last Admin: 03/27/24 15:22 Dose: 5 mls/min Documented By: NURYS Imaging Data Radiologist's Impression: Chest X-Ray 03/27/24 13:47 Chest radiograph, one view History: Sepsis Comparison: 04/25/2023 Findings: Single AP view of the chest performed. There is a consolidative opacity in the right lower lobe. Subtle small streaky opacities of the left lower lung seen, some of which represents atelectasis. No pneumothorax. The cardiomediastinal silhouette is within normal limits. Normal pulmonary vascularity. No evidence for lymphadenopathy. No visualized bony or soft tissue abnormality. Impression: Right lower lobe pneumonia. Likely some degree of infection of the left lower lung as well. Electronically signed by Jamaal Jerry 03-27-2024 2:13 PM Discharge Plan Visit Data Chief Complaint: Back Injury/Pain Stated Complaint: BACK PAIN, COUGH ED Provider: Malena Pelayo Discharge Problem: Sepsis, Pneumonia, Leukocytosis, Elevated troponin, Elevated brain natriuretic peptide (BNP) level, Acute hypoxemic respiratory failure Forms Stand Alone Forms: My [facility] Prescriptions Prescriptions: No Action sumatriptan succinate [Imitrex] 100 mg tablet 100 mg PO UD PRN (Reason: Migraine Headache) Qty: 9 3RF Rx Instructions: 100 mg PO at migraine onset, may repeat in 2 hours prn, no more than 2 tabs in 24 hrs metformin 500 mg tablet 500 mg PO HS Qty: 90 1RF Rx Instructions: take with food. cyclobenzaprine 10 mg tablet 10 mg PO HS PRN (Reason: MUSCLE SPASMS) Qty: 30 5RF semaglutide (weight loss) 0.5 mg/0.5 mL pen injector 0.5 mg subcut Q7D Qty: 2 2RF lorazepam 0.5 mg tablet 0.5 mg PO HS Qty: 30 1RF cephalexin 500 mg capsule 500 mg PO Q6H 7 Days Qty: 28 0RF fluconazole 150 mg tablet 150 mg PO Q3D 0 Days Qty: 2 2RF Rx Instructions: Take tablet today, then repeat in 3 days. silver sulfadiazine [Silvadene] 1 % cream 1 applic topical BID Qty: 25 2RF Rx Instructions: apply a 1.5 mm thickness naltrexone 50 mg tablet 50 mg PO DAILY Qty: 90 1RF Botox 100 unit recon soln 100 unit subcut DIRECTED Patient Comments: LAST DOSE FEW WEEKS AGO Rx Instructions: Every 90 days for Migraines (VERIFIED PAT CALL 05/08/21) Referrals Referrals: Wander Howard MD [Primary Care Provider] -
[2024-03-27 14:14] LABS: iSTAT Creatinine 0.9 mg/dl (0.6-1.3); iSTAT Hemoglobin 10.5 g/dl (12.0-16.0); iSTAT Ionized Calcium 1.18 mmol/l (1.12-1.32)
[2024-03-27 14:31] LABS: Albumin Level 3.3 gm/dl (3.4-5.0); BUN Creatinine Ratio 29.2 (10-20); Bilirubin Direct 0.2 mg/dl (0-0.2); Bilirubin,Total 0.5 mg/dl (0.2-1.0); Calcium 8.9 mg/dl (8.6-10.3); Magnesium 1.8 mg/dl (1.7-2.4); Total Protein 6.5 gm/dl (6.0-8.3)
[2024-03-27 14:39] LABS: Troponin I High Sensitivity 14.3 pg/ml (0-14)
[2024-03-27] MEDS ORDERED: VANCOMYCIN CONSULT ACTIVE PRN (14:40)
--- NOTE | 2024-03-27 14:47 | History & Physical Report ---
Date of Service March 27, 2024 Assessment & Plan (1) Acute hypoxemic respiratory failure: (2) Pneumonia involving right lung: (3) Sepsis: (4) Hyperglycemia: Plan The patient is a 73-year-old female with past medical history including postconcussion headache, prediabetes, daytime somnolence, fatigue, sleep apnea, migraine headaches, PLMD, SNHL bilaterally, peripheral neuropathy, cervicalgia, osteoarthritis, depression with anxiety, treatment with botulinum injections for migraine headache. She was recently traveling via airplane to [place], stopped at another airport on the way to [place], and was recently at the [place] [employer]. Last evening she began develop significant right lower chest pain, shortness of breath, dyspnea on exertion, and cough. The cough to this point has been nonproductive. She also reports that when she got off at the airport, she was so fatigued she could hardly walk. Due to worsening symptoms today, she presents to the ED for assessment. Chest x-ray in ED revealed a right lower lobe consolidation, and patient was referred for evaluation admission. Of note, patient has a history of MRSA infection about 10 years ago. # Acute respiratory failure with hypoxia/right lower lobe pneumonia- Cefepime 2 g IV every 12 hours Azithromycin 500 mg p.o. daily Vancomycin IV per pharmacokinetic monitoring. History of MRSA MRSA swab DuoNebs every 2 hours as needed Mucinex 600 mg p.o. every 12 hours Nasal cannula oxygen, titrate to pulse ox 94% BioFire ordered and pending #Hyperglycemia due to prediabetes-glucose 149 admission BioFire ordered and pending Holding metformin Holding semaglutide Check hemoglobin A1c #Migraine headache-continue usual supportive medications: Cyclobenzaprine, lorazepam, naltrexone, sumatriptan hand On Botox injections in the outpatient setting, which do a good job of controlling her headaches History of Present Illness Chief Complaint: The patient presents to the emergency department with complaint of acute onset o f right sided chest pain, cough, shortness of breath, dyspnea on exertion last evening, after returning from the [facility], and has progressively worsened throughout the day. Primary Care Provider: Wander Howard MD The patient is a 73-year-old female with past medical history including postconcussion headache, prediabetes, daytime somnolence, fatigue, sleep apnea, migraine headaches, PLMD, SNHL bilaterally, peripheral neuropathy, cervicalgia, osteoarthritis, depression with anxiety, treatment with botulinum injections for migraine headache. She was recently traveling via airplane to [place], stopped at other airports, and was recently at the [place] [employer] [facility]. Last evening she began develop significant right lower chest pain, shortness of breath, dyspnea on exertion, and cough. The cough to this point has been nonproductive. She also reports that when she got off at the airport, she was so fatigued that she could hardly walk. Due to worsening symptoms today, she presents to the ED for assessment. Chest x-ray in ED revealed a right lower lobe consolidation, and patient was referred for evaluation admission, of note, patient has a history of MRSA infection about 10 years ago. Allergies Allergy/AdvReac Type Severity Reaction Status Date / Time doxycycline Allergy Intermediate RASH/Headac Verified 02/09/24 10:04 he Penicillins Allergy Intermediate Rash Verified 02/09/24 10:04 Sulfa (Sulfonamide Allergy Intermediate Rash Verified 02/09/24 10:04 Antibiotics) adhesive Allergy Mild RASH/BURN Verified 02/09/24 10:04 WITH BANDAIDS buspirone AdvReac Intermediate Palpitation Verified 02/09/24 10:04 s pesticide AdvReac Intermediate Confusion Verified 02/09/24 10:04 Home Medications Medication Instructions Recorded Confirmed Type sumatriptan succinate 100 mg 100 mg PO UD PRN Migraine Headache 07/16/22 02/09/24 Rx tablet (Imitrex) #9 tabs onabotulinumtoxinA 100 unit 100 unit subcut DIRECTED 04/16/23 02/09/24 History solution for injection (Botox) silver sulfadiazine 1 % topical 1 applic topical BID #25 grams 05/21/23 02/09/24 Rx cream (Silvadene) metformin 500 mg tablet 500 mg PO HS #90 tabs 06/03/23 02/09/24 Rx naltrexone 50 mg tablet 50 mg PO DAILY #90 tabs 12/25/23 02/09/24 Rx cyclobenzaprine 10 mg tablet 10 mg PO HS PRN MUSCLE SPASMS #30 12/30/23 02/09/24 Rx tabs semaglutide (weight loss) 0.5 0.5 mg (0.5 mL) subcut Q7D #2 mL 12/30/23 02/09/24 Rx mg/0.5 mL subcutaneous pen injector lorazepam 0.5 mg tablet 0.5 mg PO HS #30 tabs 02/16/24 Rx cephalexin 500 mg capsule 500 mg PO Q6H 7 days #28 caps 02/23/24 Rx fluconazole 150 mg tablet 150 mg PO Q3D 2 doses #2 tabs 02/23/24 Rx Past Med/Surg History Problem List (Updated 03/27/24 @ 14:58 by Satish Mayfield MD) Hyperglycemia Pneumonia involving right lung Acute hypoxemic respiratory failure (Acute) Elevated brain natriuretic peptide (BNP) level (Acute) Elevated troponin (Acute) Leukocytosis (Acute) Pneumonia (Acute) Sepsis (Acute) Insomnia Post-concussion headache Prediabetes Allergy to sulfa drugs Allergy to penicillin History of Lyme disease Excessive sleepiness Fatigue Disordered eating Left knee pain Ductal hyperplasia of breast Sleep apnea "MILD" NO DEVICE USED Occipital neuralgia HX Migraine headache BOTOX INJECTIONS FOR TX (EVERY 90 DAYS) PLMD (periodic limb movement disorder) RLS (restless legs syndrome) Anosmia Bilateral tinnitus Worse in left ear Sensorineural hearing loss (SNHL) of both ears Peripheral neuropathy Urge incontinence of urine (Acute) Post concussion syndrome Cervicalgia Vitamin D deficiency disease Obesity Depression with anxiety Impaired fasting glucose Palpitations (Acute) Osteoarthritis Medical History Lyme disease Severe headache Tiredness Gait disturbance Septic arthritis of shoulder 2010. MRSA, after shoulder injection. treated by Dr Zhang. Nasal congestion Tinnitus of left ear Left-sided face pain Dizziness Headache Dysphasia Brain fog Hypertension Low hemoglobin Drug-induced weight gain Lyme arthritis Chronic back pain Sacroiliitis Memory loss NO ISSUES CURRENTLY PER PT Concussion X 3 2018(MAR,APR,MAY) 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-WENT TO "[employer]" Fibromyalgia Depression HX Anxiety History of colon polyps Mitral valve prolapse NO PREMED WITH DENTAL Surgical History History of oral surgery APR 05 2021 - 3 EXTRACTIONS AND 3 IMPLANTS - HEALING Status post left partial knee replacement History of colonoscopy with polypectomy History of surgical procedure on mouth dental implant History of root canal procedure History of dilatation and curettage UTERINE ALBATION History of arthroscopy RT KNEE History of tooth extraction History of blepharoplasty RT/LEFT Status post tubal ligation HX Family History Father Family history of diabetes mellitus Family hx colonic polyps Colorectal cancer Heart disease Hypertension Grandmother (Paternal) Family history of diabetes mellitus Sister Family history of diabetes mellitus Ovarian cancer Breast cancer Cervical cancer Mother Breast cancer Grandfather (Maternal) Myocardial infarction Other No family history of adverse response to anesthesia No family history of bleeding disorder Denies family history of Prostate cancer Social History Smoking Status: Never smoker Second Hand Exposure: No; Do You Dip or Chew Tobacco: No; Hx Alcohol Use: Yes (Socially ) Alcohol type: beer and wine Alcohol Intake Frequency: Monthly or Less Hx Substance Use: No Preferred Language: Spanish Communication Ability: Effective Visual Impairment: No Limitations Hearing Ability: Normal [employer] Required: No Beliefs That Will Affect Care: None marital status: Current Living Situation: Alone current occupational status: retired 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 How many Children do You have: 0 Feels Safe at Home: Yes Childhood Exposure to Second-Hand Smoke: No Diet: regular during the past year weight has: increased > 10 lbs Dental Care, Regularly: Yes Physical Activity Frequency: Does not Exercise Seatbelt Use: always Sunscreen Use: Yes Assistive Devices: Cane and Glasses Review of Systems Review of Systems: The patient denies palpitations, lower extremity swelling, sore throat, fevers, chills, sweats, nausea, vomiting, diarrhea , constipation, abdominal pain, pelvic pain, blood in urine or stool, dysuria, urinary frequency or urgency, lightheadedness, dizziness, headache, memory loss, loss of consciousness, rash, abnormal bruising or bleeding, imbalance, focal weakness, numbness or tingling in arms or legs, generalized arthralgias or myalgias, back or neck pain, or night sweats. The review of systems is otherwise negative other than for that already noted above, and at least 10 systems have been reviewed. Physical Exam Physical Exam: The patient is awake, alert and oriented 3, well developed and well nourished, normocephalic and atraumatic, lying in bed and in no acute distress. HEENT--PERRL, EOMI, mucous membranes and oropharynx normal Neck--supple. No JVD. No bruits. Thyroid normal, trachea midline, no adenopathy. Heart--normal S1 and S2. No murmurs, rubs or gallops. Lungs--decreased breath sounds right base. No respiratory distress, no accessory muscle use. Abdomen--normal bowel sounds and soft. Nontender. Nondistended, no hernias or masses, no organomegaly. Extremities--no cyanosis or clubbing. No edema. Dermatologic--normal skin turgor, normal color, no abnormal lymph nodes, no rash. Neurologic--cranial nerves II through XII grossly intact. Rheumatologic--normal range of motion. Psychiatric--normal affect. Results & Data Results & Data Vital Signs (Past 12 Hours) Vital Signs Temp Pulse Pulse Pulse Resp BP BP 03/27/24 14:24 101 H 03/27/24 14:12 100 H 20 03/27/24 14:02 107 H 24 152/91 H 03/27/24 14:02 108 H 24 03/27/24 13:49 03/27/24 13:46 107 H 03/27/24 13:36 106 H 20 152/91 H 03/27/24 13:15 38.0 C H 117 H 18 149/72 H Pulse Ox O2 Del Method O2 Flow Rate 03/27/24 14:24 95 Nasal Cannula 2 03/27/24 14:12 95 Nasal Cannula 2 03/27/24 14:02 96 Nasal Cannula 2 03/27/24 14:02 89 L Room Air 03/27/24 13:49 89 L Nasal Cannula 0 03/27/24 13:46 03/27/24 13:36 90 Room Air 03/27/24 13:15 93 Room Air Code Status & VTE Plan VTE Prophylaxis Plan VTE Prophylaxis will be ordered: Yes PG Care Time/CCT Total # of Minutes Spent Total Time Spent with Patient: Total time spent is greater than 50% in coordination of care (as documented) at patient's floor/unit and/or counseling patient: Coding Level of Care Code 71414 INT INP/OBS CARE 3/75MIN Diagnoses Acute hypoxemic respiratory failure J96.01 Pneumonia involving right lung J18.9 Sepsis A41.9 Hyperglycemia R73.9
[2024-03-27 14:48] LABS: Basophils # (auto) 0.05 K/uL (0.00-0.20); Basophils % (auto) 0.2 %; Eosinophils % (auto) 0.5 %; Immature Granulocytes # (auto) 1.81 K/uL (0.01-0.20); Immature Granulocytes % (auto) 8.8 %; Lymphocytes % (auto) 2.9 %; Monocytes # (auto) 0.71 K/uL (0.11-0.59); Monocytes % (auto) 3.4 %; Neutrophils # (auto) 17.33 K/uL (1.40-6.50); Neutrophils % (auto) 84.2 %
[2024-03-27] MEDS: AZITHROMYCIN 250 MG TAB PO ONE (15:22)
[2024-03-27] MEDS: CEFEPIME 2000MG 2,000 MG/20 ML SYR IV STA ×2 (15:22→15:33)
[2024-03-27 15:26] LABS: Adenovirus PCR Not Detected (NotDetected); Bordetella parapertussis PCR Not Detected (NotDetected); Bordetella pertussis PCR Not Detected (NotDetected); Chlamydia pneumoniae PCR Not Detected (NotDetected); Coronavirus 229E PCR Not Detected (NotDetected); Coronavirus CoV-2 (COVID19)PCR Not Detected (NotDetected); Coronavirus HKU1 PCR Not Detected (NotDetected); Coronavirus NL63 PCR Not Detected (NotDetected); Coronavirus OC43PCR Not Detected (NotDetected); Human Metapneumovirus PCR Not Detected (NotDetected); Influenza A PCR Not Detected (NotDetected); Influenza B PCR Not Detected (NotDetected); Mycoplasma pneumoniae PCR Not Detected (NotDetected); Parainfluenza Virus 1 PCR Not Detected (NotDetected); Parainfluenza Virus 2 PCR Not Detected (NotDetected); Parainfluenza Virus 3 PCR Not Detected (NotDetected); Parainfluenza Virus 4 PCR Not Detected (NotDetected); Respiratory Syncytial VirusPCR Not Detected (NotDetected); Rhinovirus/Enterovirus PCR Not Detected (NotDetected)
[2024-03-27] MEDS: SODIUM CHLORIDE 0.9% 2,000 ML IV ONE (15:29)
[2024-03-27] MEDS: SODIUM CHLORIDE 0.9% 500 ML IV ONE (15:51)
[2024-03-27] MEDS: VANCOMYCIN HCL 1,500 MG in SODIUM CHLORIDE 0.9% 500 ML IV ONE (16:26)
[2024-03-27] MEDS ORDERED: GLUCOSE 10 TAB/TUBE PO PRN (20:20)
[2024-03-27] MEDS ORDERED: DEXTROSE 50% 50 ML SYRINGE IV PRN (20:20)
[2024-03-27] MEDS ORDERED: ALBUT/IPRATROP 3MG/0.5MG NEB 3 ML VIAL NEB PRN (20:20)
[2024-03-27] MEDS ORDERED: GLUCAGON FOR INJ 1 MG VIAL SQ PRN (20:20)
[2024-03-27] MEDS ORDERED: CYCLOBENZAPRINE HCL 10 MG TAB PO PRN (20:20)
[2024-03-27] MEDS ORDERED: GLUCOSE 40% GEL 15 GM TUBE PO PRN (20:20)
[2024-03-27] MEDS ORDERED: CARBOHYDRATES FOR HYPOGLYCEMIA PO PRN (20:20)
[2024-03-27] MEDS: INSULIN ASPART PER UNIT CHARGE SC SCH (20:49)
[2024-03-27] MEDS: guaiFENesin 600 MG TABCR PO SCH (21:29)
[2024-03-27] MEDS: LORazepam 0.5 MG TAB PO SCH (21:35)
[2024-03-27] MEDS: HEPARIN SOD 5,000 UNIT/0.5 ML VIAL SQ SCH (21:35)
[2024-03-27] MEDS: BENZONATATE 100 MG CAPSULE PO PRN (21:35)
[2024-03-27] MEDS: CEFEPIME 2000MG 2,000 MG/20 ML SYR IV SCH (23:00)
[2024-03-28 04:14] LABS: A calco-baum cmplx NotReported Not Detected (NotDetected); Bact fragilis Not Reported Not Detected (NotDetected); Blood Culture Id Panel See PCR Comment (NotDetected); C auris Not Reported Not Detected (NotDetected); Calbicans Not Reported Not Detected (NotDetected); Candida glabrata Not Reported Not Detected (NotDetected); Candida krusei Not Reported Not Detected (NotDetected); Cneoformans/gatti Not Reported Not Detected (NotDetected); Cparapsilosis Not Reported Not Detected (NotDetected); E cloacae compx Not Reported Not Detected (NotDetected); Efaecalis Not Reported Not Detected (NotDetected); Efaecium Not Reported Not Detected (NotDetected); Enterobacterales Not Reported Not Detected (NotDetected); Escherichia coli Not Reported Not Detected (NotDetected); H influenzae Not Reported Not Detected (NotDetected); K aerogenes Not Reported Not Detected (NotDetected); Koxytoca Not Reported Not Detected (NotDetected); Kpneumoniae grp Not Reported Not Detected (NotDetected); Lmonocyt Not Reported Not Detected (NotDetected); N meningitidis Not Reported Not Detected (NotDetected); P aeruginosa Not Reported Not Detected (NotDetected); Proteus spp Not Reported Not Detected (NotDetected); Salmonella spp Not Reported Not Detected (NotDetected); Staph lugdunensis Not Reported Not Detected (NotDetected); Staph spp. Not Reported Not Detected (NotDetected); Staphaureus Not Reported Not Detected (NotDetected); Staphepi Not Reported Not Detected (NotDetected); Stenmaltophilia Not Reported Not Detected (NotDetected); Strep agal(GrpB) Not Reported Not Detected (NotDetected); Strep pneum Not Reported DETECTED (NotDetected); Strep pyog (GrpA) Not Reported Not Detected (NotDetected); Strep spp Not Reported DETECTED (NotDetected)
[2024-03-28 04:22] LABS: Streptococcus pneumoniae DETECTED (NotDetected); Streptococcus spp DETECTED (NotDetected)
[2024-03-28 04:23] LABS: Appearance Urine Clear (Clear); Bacteria Urine Automated None Seen (None Seen); Bilirubin Urine Negative (Negative); Blood Urine Trace (Negative); Color Urine Dark Yellow; Glucose Urine UA Negative (Negative); Ketones Urine Trace (Negative); Leukocyte Esterase Urine 1+ (Negative); Mucus Urine Present (None Prsent); Nitrite Urine Negative (Negative); Protein Urine 1+ (Negative); Specific Gravity Urine 1.036 (1.000-1.030); Urobilinogen Urine Negative (Negative); WBC Urine Automated >50 /hpf (0-5)
[2024-03-28 06:14] LABS: Mean Corpuscular Hemoglobin 28.4 pg (25.0-34.0); Mean Corpuscular Hgb Conc 32.1 g/dL (32.0-36.0); Mean Corpuscular Volume 88.3 fL (80.0-100.0); Platelet Count 315 K/uL (130-400); RDW Coefficient of Variation 14.9 % (11.5-14.5); RDW Standard Deviation 48.2 fL (36.4-46.3); Red Blood Count 3.17 M/uL (4.20-5.40); White Blood Count 26.72 K/ul (4.8-10.8)
[2024-03-28 06:38] LABS: Albumin Globulin Ratio 0.9 (0.9-2); Albumin Level 2.9 gm/dl (3.4-5.0); BUN Creatinine Ratio 32.7 (10-20); Bilirubin,Total 0.4 mg/dl (0.2-1.0); Calcium 8.4 mg/dl (8.6-10.3); Creatinine Clr Calc Pharmacy 46.6 ml/min; Globulin 3.3 gm/dl (2.5-4.0); Potassium 4.5 mmol/L (3.5-5.1); Total Protein 6.2 gm/dl (6.0-8.3)
[2024-03-28 06:39] LABS: Basophils # (auto) 0.08 K/uL (0.00-0.20); Basophils % (auto) 0.3 %; Dohle Bodies 2+; Echinocytes 1+; Eosinophils # (auto) 0.19 K/uL (0.00-0.50); Eosinophils % (auto) 0.7 %; Immature Granulocytes # (auto) 1.48 K/uL (0.01-0.20); Immature Granulocytes % (auto) 5.5 %; Lymphocytes % (auto) 3.4 %; Monocytes # (auto) 1.02 K/uL (0.11-0.59); Monocytes % (auto) 3.8 %; Neutrophils # (auto) 23.05 K/uL (1.40-6.50); Neutrophils % (auto) 86.3 %
[2024-03-28 07:10] LABS: Estimated Average Glucose 146 mg/dl; Hemoglobin A1C 6.7 % (4.5-5.6)
[2024-03-28] MEDS: NALTREXONE HCL 50 MG TAB PO SCH (08:07)
[2024-03-28] MEDS: AZITHROMYCIN 250 MG TAB PO SCH (08:07)
[2024-03-28] MEDS: cefTRIAXone SODIUM 2,000 MG/50 ML BAG IV SCH (09:31)
--- NOTE | 2024-03-28 13:06 | Hospitalist Progress Note ---
Date of Service March 28, 2024 Assessment & Plan (1) Acute hypoxemic respiratory failure: (2) Pneumonia involving right lung: (3) Sepsis: (4) Hyperglycemia: Plan 73-year-old woman with right lower lobe pneumococcal pneumonia and bacteremia # sepsis and acute respiratory failure with hypoxia caused by right lower lobe and possible left lower lobe pneumococcal pneumonia and bacteremia change antibiotics to ceftriaxone 2 g IV every 24 hours, needs minimum total 7 days of antibiotics Mucinex 600 mg p.o. every 12 hours Nasal cannula oxygen, titrate to pulse ox 94% flutter valve, I-S sepsis and acute respiratory failure improving - tachycardia and tachypnea resolved, temp improved. Home when hypoxia and leukocytosis improved. notes that her BNP is mildly elevated at 148. there is an insignificant elevation of high-sensitivity troponin at 14.3. Hagama has resolved #Hyperglycemia due to prediabetes-glucose 149 admission Holding metformin Holding semaglutide hemoglobin A1c 6.7% increased from last check #Migraine headache-continue usual supportive medications: Cyclobenzaprine, lorazepam, naltrexone, sumatriptan hand On Botox injections in the outpatient setting, which do a good job of controlling her headaches abnormal UAfollow-up culture, she does not have any dysuria, already on a broad-spectrum antibiotic DVT prophylaxis Admission and Anticipated Discharge Date Admission Date: March 27, 2024 Subjective Lucia still feels pretty poorly, has fatigue and cough which has been nonproductive. No chest pain. No antecedent viral illness and the current illness came on very abruptly almost over a few hours Physical Exam 2 Physical Exam: PHYSICAL EXAMINATION Last 24h vital signs reviewed, see documentation in flowsheet General: comfortable appearing, no distress, sitting in bed HEENT: Normocephalic, atraumatic, pupils round and equal, sclerae anicteric, no conjunctival injection, moist mucus membranes Lungs: Normal respiratory effort. diminished right mid field and base otherwise clear to auscultation bilaterally Heart: Regular rate and rhythm, no murmurs. No JVD Abdomen: Soft, nontender, nondistended. Bowel sounds present. Extremities: Warm, dry, well-perfused. No extremity edema. Neuro: Alert and oriented x 4, face symmetric, moves 4 extremities well Psych: Normal affect and behavior Results & Data Results & Data Vital Signs (Past 12 Hours) Vital Signs Temp Pulse Pulse Resp BP Pulse Ox O2 Del Method 03/28/24 11:41 98.4 F 85 18 148/84 H 94 Nasal Cannula 03/28/24 10:31 Nasal Cannula 03/28/24 08:01 97.3 F L 78 18 123/77 94 Nasal Cannula 03/28/24 07:07 79 03/28/24 04:00 97.7 F 78 18 121/79 93 Nasal Cannula O2 Flow Rate 03/28/24 11:41 2 03/28/24 10:31 2 03/28/24 08:01 2 03/28/24 07:07 03/28/24 04:00 2 Laboratory Results 03/28/24 05:34 03/28/24 05:34 PG Care Time/CCT Total # of Minutes Spent Total Time Spent with Patient: Total time spent is greater than 50% in coordination of care (as documented) at patient's floor/unit and/or counseling patient: Coding Level of Care Code 68882 SUB INP/OBS CARE 3/50MIN Diagnoses Acute hypoxemic respiratory failure J96.01 Pneumonia involving right lung J18.9 Sepsis A41.9 Hyperglycemia R73.9
[2024-03-28] MEDS: ACETAMINOPHEN 325 MG TAB PO PRN (15:37)
[2024-03-28] MEDS: ENOXAPARIN INJ 40 MG/0.4 ML SYR SQ SCH (20:18)
--- NOTE | 2024-03-29 06:01 | Electrocardiogram Report ---
Test Reason : Blood Pressure : */* mmHG Vent. Rate : 103 BPM Atrial Rate : 103 BPM P-R Int : 128 ms QRS Dur : 88 ms QT Int : 338 ms P-R-T Axes : 43 -6 37 degrees QTcB Int : 442 ms Sinus tachycardia Otherwise normal ECG When compared with ECG of 11-Apr-2023 15:51, Left anterior fascicular block is no longer Present Confirmed by Gelacio Ortiz ([id number]) on 03/29/2024 6:01:28 AM Referred By: REFERRED SELF Confirmed By: Gelacio Ortiz
[2024-03-29 07:32] LABS: Hematocrit (blood only) 29.8 % (37.0-47.0); Hemoglobin 9.5 g/dl (12.0-16.0); Mean Corpuscular Hemoglobin 27.9 pg (25.0-34.0); Mean Corpuscular Hgb Conc 31.9 g/dL (32.0-36.0); Mean Corpuscular Volume 87.4 fL (80.0-100.0); Mean Platelet Volume 9.8 fL (9.4-12.4); Platelet Count 394 K/uL (130-400); RDW Coefficient of Variation 14.8 % (11.5-14.5); RDW Standard Deviation 47.8 fL (36.4-46.3); Red Blood Count 3.41 M/uL (4.20-5.40); White Blood Count 22.82 K/ul (4.8-10.8)
[2024-03-29 07:47] LABS: Albumin Globulin Ratio 0.9 (0.9-2); BUN Creatinine Ratio 31.4 (10-20); Bilirubin,Total 0.4 mg/dl (0.2-1.0); Calcium 8.6 mg/dl (8.6-10.3); Creatinine Clr Calc Pharmacy 52.3 ml/min; Globulin 3.5 gm/dl (2.5-4.0); Potassium 4.1 mmol/L (3.5-5.1); Total Protein 6.5 gm/dl (6.0-8.3)
[2024-03-29 07:56] LABS: Basophils # (auto) 0.11 K/uL (0.00-0.20); Basophils % (auto) 0.5 %; Echinocytes 1+; Eosinophils # (auto) 0.35 K/uL (0.00-0.50); Eosinophils % (auto) 1.5 %; Immature Granulocytes # (auto) 1.94 K/uL (0.01-0.20); Immature Granulocytes % (auto) 8.5 %; Lymphocytes # (auto) 1.27 K/uL (1.20-3.40); Lymphocytes % (auto) 5.6 %; Monocytes # (auto) 0.96 K/uL (0.11-0.59); Monocytes % (auto) 4.2 %; Neutrophils # (auto) 18.19 K/uL (1.40-6.50); Neutrophils % (auto) 79.7 %; Polychromasia 1+; Toxic Vacuolation 1+
[2024-03-29] MEDS: NITROGLYCERIN 2% OINTMENT 30GM TUBE EXT SCH (15:53)
[2024-03-29] MEDS: LORazepam 2 MG/1 ML VIAL IV STA (15:59)
--- NOTE | 2024-03-29 16:16 | Hospitalist Progress Note ---
Date of Service March 29, 2024 Assessment & Plan (1) Sepsis: (2) Acute hypoxemic respiratory failure: (3) Pneumonia involving right lung: (4) Uncontrolled hypertension: (5) Hyperglycemia: Plan 73-year-old woman with right lower lobe pneumococcal pneumonia and bacteremia # sepsis and acute respiratory failure with hypoxia caused by right lower lobe and possible left lower lobe pneumococcal pneumonia and bacteremia ceftriaxone 2 g IV every 24 hours, needs minimum total 7 days of antibiotics -considered discharge today with oral antibiotics however WBC still very elevated, prefer to see some improvement, likely discharge tomorrow Mucinex 600 mg p.o. every 12 hours Hypoxia resolved flutter valve, I-S # Acute uncontrolled hypertension - she was normotensive through yesterday AM and denies history of hypertension. Progressively elevated started yesterday midday. Asymptomatic. Considered withdrawal syndrome but denies alcohol use (takes naltrexone for food craving / weight loss), not tremulous or diaphoretic- I assessed twice today. Low dose HS lorazepam, reviewed PDMP Her BNP is elevated at 148 and she has an outpatient Rx for furosemide -nitro paste for few hours, lorazepam 0.5 mg po x 1, oral hydralazine, resume oral lasix -assess response - seems more likely situational or possibly mildly volume overloaded -discussed with bedside RN #Hyperglycemia due to prediabetes-glucose 149 admission Holding metformin Holding semaglutide hemoglobin A1c 6.7% increased from last check blood glucoses have been <150 #Migraine headache-continue usual supportive medications: Cyclobenzaprine, lorazepam, naltrexone, sumatriptan On Botox injections in the outpatient setting, which do a good job of controlling her headaches abnormal UA no growth on culture, she does not have any dysuria sepsis and acute respiratory failure resolved HAGMA - resolved there was an insignificant/minimal elevation of high-sensitivity troponin at 14.3 DVT prophylaxis - enoxaparin Admission and Anticipated Discharge Date Admission Date: March 27, 2024 Subjective Lucia is feeling pretty well today she would like to go home soon Cough seems to have loosened up no chest pain Hypertensive all day, one afternoon BP entered as 202/147, I went down she said she was up and around and excited because she had visitors. I rechecked it and got 180/100 HR 95 Not tremulous or sweaty Denies alcohol intake "I won't waste calories on that" takes the naltrexone for appetite suppression Physical Exam 2 Physical Exam: PHYSICAL EXAMINATION Last 24h vital signs reviewed, see documentation in flowsheet General: comfortable appearing, no distress, sitting in bed HEENT: Normocephalic, atraumatic, pupils round and equal, sclerae anicteric, no conjunctival injection, moist mucus membranes Lungs: Normal respiratory effort. diminished right base/mid but improved compared to yesterday with some faint crackles otherwise clear Heart: Regular rate and rhythm, no murmurs. No JVD Abdomen: Soft, nontender, nondistended. Bowel sounds present. Extremities: Warm, dry, well-perfused. No extremity edema. Neuro: Alert and oriented x 4, face symmetric, moves 4 extremities well, walks well, no tremor or diaphoresis Psych: Normal affect and behavior Results & Data Results & Data Vital Signs (Past 12 Hours) Vital Signs Temp Pulse Resp BP Pulse Ox O2 Del Method O2 Flow Rate 03/29/24 15:14 Room Air 03/29/24 15:01 97.9 F 95 H 18 202/147 H 98 Room Air 03/29/24 11:46 97.7 F 85 16 176/100 H 93 Room Air 03/29/24 10:40 175/96 H 03/29/24 08:13 97.7 F 83 16 192/94 H 97 Nasal Cannula 1 03/29/24 07:00 97.7 F 80 18 178/99 H 95 Nasal Cannula 1 Laboratory Results 03/29/24 07:15 03/29/24 07:15 PG Care Time/CCT Total # of Minutes Spent Total Time Spent with Patient: Total time spent is greater than 50% in coordination of care (as documented) at patient's floor/unit and/or counseling patient: Coding Level of Care Code 90138 SUB INP/OBS CARE 3/50MIN Diagnoses Sepsis A41.9 Acute hypoxemic respiratory failure J96.01 Pneumonia involving right lung J18.9 Uncontrolled hypertension I10 Hyperglycemia R73.9
[2024-03-29] MEDS: LORazepam 0.5 MG TAB PO ONE (16:31)
[2024-03-29] MEDS: FUROSEMIDE 20 MG TAB PO SCH (17:16)
[2024-03-29] MEDS: hydrALAZINE HCL 25 MG TAB PO SCH (17:16)
--- NOTE | 2024-03-29 21:32 | Communication Note ---
Date of Service: March 29, 2024 BP improved 140s/90s Stop nitro paste Increase hydralazine to 50 q8h. Lasix po resumed today. BNP was elevated in light of her BMI but no pulmonary edema Unclear why acutely hypertensive thus using short acting hydralazine. Unclear if needing longer acting hypertensive agent
[2024-03-30] MEDS: hydrALAZINE TAB 50 MG TAB PO SCH (00:20)
[2024-03-30] MEDS ORDERED: Nursing to Pharmacy Communication SCH (05:45)
[2024-03-30 08:27] LABS: Hematocrit (blood only) 31.7 % (37.0-47.0); Hemoglobin 10.4 g/dl (12.0-16.0); Mean Corpuscular Hgb Conc 32.8 g/dL (32.0-36.0); Mean Corpuscular Volume 85.2 fL (80.0-100.0); Mean Platelet Volume 9.4 fL (9.4-12.4); Nucleated RBC # (auto) 0.02 K/uL (0.00-0.12); Nucleated RBC % (auto) 0.1 %; Platelet Count 408 K/uL (130-400); RDW Coefficient of Variation 14.6 % (11.5-14.5); RDW Standard Deviation 45.2 fL (36.4-46.3); Red Blood Count 3.72 M/uL (4.20-5.40); White Blood Count 14.45 K/ul (4.8-10.8)
[2024-03-30 08:40] LABS: ALC (manual) 1.01 K/uL (1.2-3.4); ANC (manual) 10.84 K/uL (1.4-6.5); Eosinophils # (manual) 0.14 K/uL (0-0.50); Eosinophils % (manual) 1 %; Lymphocytes # (manual) 1.01 K/uL (1.2-3.4); Lymphocytes % (manual) 7 %; Metamyelocytes # (manual) 0.87 K/uL (0-0); Metamyelocytes % (manual) 6 %; Monocytes # (manual) 0.87 K/uL (0.11-0.59); Monocytes % (manual) 6 %; Myelocytes # (manual) 0.72 K/uL (0-0); Myelocytes % (manual) 5 %; Neutrophils # (manual) 10.84 K/uL (1.40-6.50); Neutrophils % (manual) 75 %
[2024-03-30 08:45] LABS: Albumin Globulin Ratio 0.9 (0.9-2); Albumin Level 3.2 gm/dl (3.4-5.0); Bilirubin,Total 0.4 mg/dl (0.2-1.0); Creatinine Clr Calc Pharmacy 56.2 ml/min; Globulin 3.4 gm/dl (2.5-4.0); Magnesium 1.8 mg/dl (1.7-2.4); Potassium 3.6 mmol/L (3.5-5.1); Total Protein 6.6 gm/dl (6.0-8.3)
[2024-03-30] MEDS: LOSARTAN POTASSIUM 25 MG TAB PO SCH (10:02)
[2024-03-30] MEDS: ONDANSETRON INJ 2 MG/ML 2 ML VIAL IV PRN (11:10)
[2024-03-30] MEDS: KETOROLAC TROMETHAMINE 15 MG/ML VIAL IV ONE (12:12)
[2024-03-30] MEDS: BUTALBITAL/ACETAMIN/CAFFEINE TAB PO STA (12:53)
--- NOTE | 2024-03-30 13:37 | Hospitalist Progress Note ---
Date of Service March 30, 2024 Assessment & Plan (1) Bacteremia: Plan: 2nd strep pneumo - pansensitive cont rocephin IV 2 gram daily was on cefepime initially day #4 of effective abx therapy plan 10-14 days of Rx in total echo ordered - r/o endocarditis, although strep pneumo is not a common cause of SBE leukocytosis improving source - RLL pneumonia, LLL pneumonia (2) Severe headache: Plan: probably mixed tension-migraine h/a, former most prominent poor response to multiple agents today - toradol, fioricet, baclofen, IV mag encouraged use of imitrex if no relief with imitrex then start IV steroids but will try to avoid with #1 above consider imaging if needed difficult to know if the elevated BPs are contributing to headache or vice versa either way treating her BP as well (3) Sepsis: Plan: 2nd to b/l pneumonia improving (4) Acute hypoxemic respiratory failure: Plan: o2 weaned off by AM of 03/29/24 resolved 2nd to presumed strep b/l pneumonia (5) Pneumonia involving right lung: Plan: RLL, and LLL presumed pathogen - strep pneumoniae given the +blood cultures (6) Uncontrolled hypertension: Plan: in light of T2DM (a1c 6.7%) add losartan 25mg daily titrate this as needed and wean off hydralazine (7) Hyperglycemia: Plan: a1c 6.7% c/w T2DM resume metformin + semaglutide at d/c Plan DVT prophylaxis - enoxaparin 40mg HS home tomorrow IF BP improved, headache improved consider ID consult prior to d/c home Admission and Anticipated Discharge Date Admission Date: March 27, 2024 Subjective patient's main complaint is that of headache had good day yesterday - felt well it was her birthday yesterday - had multiple visitors slept poorly last pm didn't fall asleep until 3-4am today the headache is "everywhere" - frontal, vertex, occiput tight, sore did have nausea this am no photophobia long h/o migraines but states "this isn't a migraine" received toradol IV and fioricet this am - no change in headache later gave baclofen & mag IV - still no relief (I checked on her late in the day following the baclofen/mag) willing to try imitrex no cough no congestion no fevers no dyspnea appetite poor Review of Systems Review of Systems: gen - no fevers or chills cv - no chest symptoms pulm - no sputum HENT - some sinus congestion Physical Exam Physical Exam: gen - nontoxic, awake/alert eyes - PERRL neck/head - no meningismus, tender to palpation over the scalp; no JVD; mildly tender ethmoids to palpation but frontal/maxillary sinuses nontender mouth - MMM heart - RRR, s1 s2, no murmur lungs - rales R base 1/2 way up back; mild rales L base, 1/3 way up back abd - soft NT ND BS+ ext - no edema, pulses 2+ b/l neuro - strength 5/5 x 4 exts Results & Data Results & Data Vital Signs (Past 12 Hours) Vital Signs Temp Pulse Resp BP BP Pulse Ox O2 Del Method 03/30/24 10:41 Room Air 03/30/24 10:00 163/97 H 167/98 H 03/30/24 07:18 36.4 C L 82 18 185/107 H 93 Room Air Laboratory Results Laboratory Results - last 24 hr 03/30/24 03/30/24 03/30/24 07:22 07:51 12:09 WBC 14.45 H RBC 3.72 L Hgb 10.4 L Hct 31.7 L MCV 85.2 MCH 28.0 MCHC 32.8 RDW Std Deviation 45.2 RDW Coeff of Francia 14.6 H Plt Count 408 H MPV 9.4 Absolute Nucleated RBC 0.02 Nucleated RBC % (auto) 0.1 Neutrophils % (Manual) 75 Lymphocytes % (Manual) 7 Monocytes % (Manual) 6 Eosinophils % (Manual) 1 Metamyelocytes % (Man) 6 Myelocytes % (Man) 5 Neutrophils # (Manual) 10.84 H Total Absolute Neuts 10.84 H Lymphocytes # (Manual) 1.01 L Total Abs Lymphocytes 1.01 L Monocytes # (Manual) 0.87 H Eosinophils # (Manual) 0.14 Metamyelocytes # (Man) 0.87 H Myelocytes # (Manual) 0.72 H Sodium 139 Potassium 3.6 Chloride 103 Carbon Dioxide 27 Anion Gap 9 BUN 20 Creatinine 0.80 Est Cr Clr Drug Dosing 56.2 eGFR 77.75 BUN/Creatinine Ratio 25.0 H Glucose 95 POC Glucose 90 94 Calcium 9.0 Magnesium 1.8 Total Bilirubin 0.4 AST 13 ALT 22 Alkaline Phosphatase 83 Total Protein 6.6 Albumin 3.2 L Globulin 3.4 Albumin/Globulin Ratio 0.9 03/30/24 03/30/24 16:10 19:52 WBC RBC Hgb Hct MCV MCH MCHC RDW Std Deviation RDW Coeff of Francia Plt Count MPV Absolute Nucleated RBC Nucleated RBC % (auto) Neutrophils % (Manual) Lymphocytes % (Manual) Monocytes % (Manual) Eosinophils % (Manual) Metamyelocytes % (Man) Myelocytes % (Man) Neutrophils # (Manual) Total Absolute Neuts Lymphocytes # (Manual) Total Abs Lymphocytes Monocytes # (Manual) Eosinophils # (Manual) Metamyelocytes # (Man) Myelocytes # (Manual) Sodium Potassium Chloride Carbon Dioxide Anion Gap BUN Creatinine Est Cr Clr Drug Dosing eGFR BUN/Creatinine Ratio Glucose POC Glucose 114 H 103 H Calcium Magnesium Total Bilirubin AST ALT Alkaline Phosphatase Total Protein Albumin Globulin Albumin/Globulin Ratio Diagnostic Findings Microbiology 03/28/24 03:20 Urine,Clean Catch Urine Culture - Final No growth - less than 1,000 colonies/mL. 03/27/24 14:46 Blood Aerobic Blood Culture - Final Streptococcus pneumoniae 03/27/24 14:46 Blood Anaerobic Blood Culture - Final Streptococcus pneumoniae 03/27/24 13:50 Blood Aerobic Blood Culture - Final Streptococcus pneumoniae 03/27/24 13:50 Blood Anaerobic Blood Culture - Final Streptococcus pneumoniae PG Care Time/CCT Total # of Minutes Spent Total Time Spent with Patient: Total time spent is greater than 50% in coordination of care (as documented) at patient's floor/unit and/or counseling patient: Coding Level of Care Code 27975 SUB INP/OBS CARE 3/50MIN Diagnoses Bacteremia R78.81 Severe headache R51.9 Sepsis A41.9 Acute hypoxemic respiratory failure J96.01 Pneumonia involving right lung J18.9 Uncontrolled hypertension I10 Hyperglycemia R73.9
[2024-03-30] MEDS: BACLOFEN 10 MG TAB PO ONE (14:25)
[2024-03-30] MEDS: MAGNESIUM SULFATE / D5W 1 GM/100 ML BAG IV ONE (14:25)
--- NOTE | 2024-03-30 17:38 | XCELERA ---
[id number] \\[id number]
[2024-03-30] MEDS: SUMAtriptan succinate 100 MG TAB PO PRN (19:40)
[2024-03-31] MEDS: bisacodyL 5 MG TABEC PO SCH (08:13)
[2024-03-31] MEDS: POLYETHYLENE (MIRALAX) 17 GM PACK PO SCH (08:14)
[2024-03-31 08:30] LABS: Hemoglobin 11.5 g/dl (12.0-16.0); Mean Corpuscular Hgb Conc 31.9 g/dL (32.0-36.0); Mean Corpuscular Volume 84.5 fL (80.0-100.0); Mean Platelet Volume 9.1 fL (9.4-12.4); Nucleated RBC # (auto) 0.02 K/uL (0.00-0.12); Nucleated RBC % (auto) 0.1 %; Platelet Count 450 K/uL (130-400); RDW Coefficient of Variation 14.6 % (11.5-14.5); RDW Standard Deviation 44.7 fL (36.4-46.3); Red Blood Count 4.26 M/uL (4.20-5.40); White Blood Count 14.08 K/ul (4.8-10.8)
[2024-03-31 08:49] LABS: BUN Creatinine Ratio 26.3 (10-20); Calcium 9.1 mg/dl (8.6-10.3); Creatinine Clr Calc Pharmacy 56.2 ml/min; Potassium 4.1 mmol/L (3.5-5.1)
[2024-03-31] MEDS: LOSARTAN POTASSIUM 50 MG TAB PO SCH (08:55)
--- NOTE | 2024-03-31 13:39 | Infectious Disease Consult ---
Date of Consultation March 31, 2024 Assessment & Plan (1) Pneumonia: (2) Leukocytosis: (3) Bacteremia: Plan This is a 73-year-old female with a past medical history of migraine headaches (gets Botox injections), fatigue, sleep apnea, osteoarthritis, depression/anxiety who presents with right lower chest pain, cough, and shortness of breath. She recently traveled by plane to [facility] for a college football game. On her way back to [place] she developed cough, chest pain and dyspnea. In the airport she also endorsed increased fatigue and difficulty ambulating. She felt her "lungs are rattling". She denied fevers, chills, nausea, vomiting. Denied sick contacts. In the ED, febrile T38, pulse 117, RR 18, BP 149/72, O2 sats 89-90% on room air-->96% on 2 L nasal cannula. Labs: WBC 20.6-->26.72, platelets 342, procalcitonin 0.20. Respiratory viral panel negative. Chest x-ray shows right lower lobe consolidation. Subtle small streaky opacity in the left lower lung. Transthoracic echocardiogram w/ no obvious vegetations. Mild MR. EF 60-65%. Blood culture grew Streptococcus pneumonia in 4 out of 4 bottles. She was started on cefepime and is now on ceftriaxone. Infectious disease consulted for Streptococcus pneumoniae bacteremia. On my initial exam, she is on room air. Has a dry cough that has improved. Denies headache or neck stiffness. Right-sided chest pain has decreased. She has been afebrile for more than 24 hours. WBC down to 14.08 Microbiology BC 03/27 06/18 bottles + for Strep pneumonia UC 03/28 1000 cfu Antibiotics Cefepime 03/27 Ceftriaxone 03/28- ongoing # Streptococcus pneumoniae bacteremia # CAP # Leukocytosis # Penicillin, sulfa and doxycycline allergy- rash #Low procalcitonin, 0.2 Discussion: The source of Streptococcus bacteremia is likely pneumonia( given clinical presentation and cxr, but procal low). Had migraines, but no REGALADO currently. No neck stiffness or fevers. TTE without vegatations. Has h/o partial L knee replacement. No other hardware or prosthetics. No signs of knee infection. No repeat BC yet. Remains on RA. Leukocytosis improving. Recommendations; Continue Ceftriaxone 2 g Iv daily Repeat BC ordered Monitor WBC, fever If headaches develop, would evaluate with imaging and LP in setting of strep pna bacteremia. IF repeat BC sterile and she continues to improve, complete 14 days of antibiotics from sterile BC as source of bacteremia likely due to Pneumonia. Can complete therapy with Cefpodoxime 400 mg po BID. Would not use PCN or amoxicillin given her allergy history. D/w hospitalist Thank you for this consult. ID will continue to follow. Stu Garcia MD, MPH Infectious Disease [facility] Call [phone] with questions Consultation Information Consultation was provided via telemedicine using two-way real-time interactive telecommunication between the patient and the telemedicine provider. For the duration of the visit, the provider was performing the assessment from a different facility than the patient. This includesuse of bluetooth stethoscope forauscultationperformed by the telepresenter that the telemedicine provider can hear if described in the physical exam. Switchboard Manager contact information: Please call [facility] Center . (Phone Number For Physician Use Only) After establishing a telemedicine visit, patient was: Patient was verified with two unique identifiers Time Spent with Patient: Initial => 75 min History of Present Illness Reason for Consultation: Streptococcus pneumoniae Bacteremia Requesting Physician: Manoj Islas MD Attending Physician: Manoj Islas MD History of Present Illness This is a 73-year-old female with a past medical history of migraine headaches (gets Botox injections), fatigue, sleep apnea, osteoarthritis, depression/anxiety who presents with right lower chest pain, cough, and shortness of breath. She recently traveled by plane to [facility] for a college football game. On her way back to [place] she developed cough, chest pain and dyspnea. In the airport she also endorsed increased fatigue and difficulty ambulating. She felt her "lungs are rattling". She denied fevers, chills, nausea, vomiting. Denied sick contacts. In the ED, febrile T38, pulse 117, RR 18, BP 149/72, O2 sats 89-90% on room air-->96% on 2 L nasal cannula. Labs: WBC 20.6-->26.72, platelets 342, procalcitonin 0.20. Respiratory viral panel negative. Chest x-ray shows right lower lobe consolidation. Subtle small streaky opacity in the left lower lung. Transthoracic echocardiogram w/ no obvious vegetations. Mild MR. EF 60-65%. Blood culture grew Streptococcus pneumonia in 4 out of 4 bottles. She was starte d on cefepime and is now on ceftriaxone. Infectious disease consulted for Streptococcus pneumoniae bacteremia. On my initial exam, she is on room air. Has a dry cough that has improved. Denies headache or neck stiffness. Right-sided chest pain has decreased. She has been afebrile for more than 24 hours. WBC down to 14.08 Allergies Allergy/AdvReac Type Severity Reaction Status Date / Time doxycycline Allergy Intermediate RASH/Headac Verified 03/27/24 15:53 he Penicillins Allergy Intermediate Rash Verified 03/27/24 15:53 Sulfa (Sulfonamide Allergy Intermediate Rash Verified 03/27/24 15:53 Antibiotics) adhesive Allergy Mild RASH/BURN Verified 03/27/24 15:53 WITH BANDAIDS buspirone AdvReac Intermediate Palpitation Verified 03/27/24 15:53 s pesticide AdvReac Intermediate Confusion Verified 03/27/24 15:53 Home Medications Medication Instructions Recorded Confirmed Type onabotulinumtoxinA 100 unit 100 unit subcut DIRECTED 04/16/23 03/27/24 History solution for injection (Botox) metformin 500 mg tablet 500 mg PO HS #90 tabs 06/03/23 03/27/24 Rx cyclobenzaprine 10 mg tablet 10 mg PO HS PRN MUSCLE SPASMS #30 12/30/23 03/27/24 Rx tabs lorazepam 0.5 mg tablet 0.5 mg PO HS #30 tabs 02/16/24 03/27/24 Rx naltrexone 50 mg tablet 50 mg PO HS 03/27/24 03/27/24 History Patient History Medical History Lyme disease Severe headache Tiredness Gait disturbance Septic arthritis of shoulder 2010. MRSA, after shoulder injection. treated by Dr Zhang. Nasal congestion Tinnitus of left ear Left-sided face pain Dizziness Headache Dysphasia Brain fog Hypertension Low hemoglobin Drug-induced weight gain Lyme arthritis Chronic back pain Sacroiliitis Memory loss NO ISSUES CURRENTLY PER PT Concussion X 3 2018(MAR,APR,MAY) 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-WENT TO "[employer]" Fibromyalgia Depression HX Anxiety History of colon polyps Mitral valve prolapse NO PREMED WITH DENTAL Surgical History History of oral surgery APR 05 2021 - 3 EXTRACTIONS AND 3 IMPLANTS - HEALING Status post left partial knee replacement History of colonoscopy with polypectomy History of surgical procedure on mouth dental implant History of root canal procedure History of dilatation and curettage UTERINE ALBATION History of arthroscopy RT KNEE History of tooth extraction History of blepharoplasty RT/LEFT Status post tubal ligation HX Family History Father Family history of diabetes mellitus Family hx colonic polyps Colorectal cancer Heart disease Hypertension Grandmother (Paternal) Family history of diabetes mellitus Sister Family history of diabetes mellitus Ovarian cancer Breast cancer Cervical cancer Mother Breast cancer Grandfather (Maternal) Myocardial infarction Other No family history of adverse response to anesthesia No family history of bleeding disorder Denies family history of Prostate cancer Social History Smoking Status: Never smoker Second Hand Exposure: No; Do You Dip or Chew Tobacco: No; Hx Alcohol Use: Yes Alcohol type: beer and wine Alcohol Intake Frequency: Monthly or Less Hx Substance Use: No Preferred Language: Korean Communication Ability: Effective Visual Impairment: No Limitations Hearing Ability: Normal 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 Pertinent positives as per hpi. Physical Exam Physical Exam: General- NAd, comfortable HEENT- anicteric sclera, no pharyngeal erythema or exudates Neck- supple Lungs- clear to auscultation. Non labored. On RA Abd- soft, not tender MSK- no joint effusion, No knee TTP Ext- No edema Neuro- AAO times 3 Psych- Cooperative. Results & Data Vital Signs (Past 12 Hours) Vital Signs Temp Pulse Resp BP Pulse Ox O2 Del Method 03/31/24 08:15 Room Air 03/31/24 07:23 36.4 C L 83 16 158/79 H 92 Room Air 03/31/24 05:53 145/82 H Laboratory Results Laboratory Results - last 48 hr 03/29/24 03/29/24 03/30/24 16:06 20:09 07:22 WBC RBC Hgb Hct MCV MCH MCHC RDW Std Deviation RDW Coeff of Francia Plt Count MPV Absolute Nucleated RBC Nucleated RBC % (auto) Neutrophils % (Manual) Lymphocytes % (Manual) Monocytes % (Manual) Eosinophils % (Manual) Metamyelocytes % (Man) Myelocytes % (Man) Neutrophils # (Manual) Total Absolute Neuts Lymphocytes # (Manual) Total Abs Lymphocytes Monocytes # (Manual) Eosinophils # (Manual) Metamyelocytes # (Man) Myelocytes # (Manual) Sodium Potassium Chloride Carbon Dioxide Anion Gap BUN Creatinine Est Cr Clr Drug Dosing eGFR BUN/Creatinine Ratio Glucose POC Glucose 87 115 H 90 Calcium Magnesium Total Bilirubin AST ALT Alkaline Phosphatase Total Protein Albumin Globulin Albumin/Globulin Ratio 03/30/24 03/30/24 03/30/24 07:51 12:09 16:10 WBC 14.45 H RBC 3.72 L Hgb 10.4 L Hct 31.7 L MCV 85.2 MCH 28.0 MCHC 32.8 RDW Std Deviation 45.2 RDW Coeff of Francia 14.6 H Plt Count 408 H MPV 9.4 Absolute Nucleated RBC 0.02 Nucleated RBC % (auto) 0.1 Neutrophils % (Manual) 75 Lymphocytes % (Manual) 7 Monocytes % (Manual) 6 Eosinophils % (Manual) 1 Metamyelocytes % (Man) 6 Myelocytes % (Man) 5 Neutrophils # (Manual) 10.84 H Total Absolute Neuts 10.84 H Lymphocytes # (Manual) 1.01 L Total Abs Lymphocytes 1.01 L Monocytes # (Manual) 0.87 H Eosinophils # (Manual) 0.14 Metamyelocytes # (Man) 0.87 H Myelocytes # (Manual) 0.72 H Sodium 139 Potassium 3.6 Chloride 103 Carbon Dioxide 27 Anion Gap 9 BUN 20 Creatinine 0.80 Est Cr Clr Drug Dosing 56.2 eGFR 77.75 BUN/Creatinine Ratio 25.0 H Glucose 95 POC Glucose 94 114 H Calcium 9.0 Magnesium 1.8 Total Bilirubin 0.4 AST 13 ALT 22 Alkaline Phosphatase 83 Total Protein 6.6 Albumin 3.2 L Globulin 3.4 Albumin/Globulin Ratio 0.9 03/30/24 03/31/24 03/31/24 19:52 07:44 07:58 WBC 14.08 H RBC 4.26 Hgb 11.5 L Hct 36.0 L MCV 84.5 MCH 27.0 MCHC 31.9 L RDW Std Deviation 44.7 RDW Coeff of Francia 14.6 H Plt Count 450 H MPV 9.1 L Absolute Nucleated RBC 0.02 Nucleated RBC % (auto) 0.1 Neutrophils % (Manual) Lymphocytes % (Manual) Monocytes % (Manual) Eosinophils % (Manual) Metamyelocytes % (Man) Myelocytes % (Man) Neutrophils # (Manual) Total Absolute Neuts Lymphocytes # (Manual) Total Abs Lymphocytes Monocytes # (Manual) Eosinophils # (Manual) Metamyelocytes # (Man) Myelocytes # (Manual) Sodium 137 Potassium 4.1 Chloride 99 Carbon Dioxide 30 Anion Gap 8 BUN 21 Creatinine 0.80 Est Cr Clr Drug Dosing 56.2 eGFR 77.75 BUN/Creatinine Ratio 26.3 H Glucose 111 H POC Glucose 103 H 111 H Calcium 9.1 Magnesium Total Bilirubin AST ALT Alkaline Phosphatase Total Protein Albumin Globulin Albumin/Globulin Ratio 03/31/24 11:25 WBC RBC Hgb Hct MCV MCH MCHC RDW Std Deviation RDW Coeff of Francia Plt Count MPV Absolute Nucleated RBC Nucleated RBC % (auto) Neutrophils % (Manual) Lymphocytes % (Manual) Monocytes % (Manual) Eosinophils % (Manual) Metamyelocytes % (Man) Myelocytes % (Man) Neutrophils # (Manual) Total Absolute Neuts Lymphocytes # (Manual) Total Abs Lymphocytes Monocytes # (Manual) Eosinophils # (Manual) Metamyelocytes # (Man) Myelocytes # (Manual) Sodium Potassium Chloride Carbon Dioxide Anion Gap BUN Creatinine Est Cr Clr Drug Dosing eGFR BUN/Creatinine Ratio Glucose POC Glucose 112 H Calcium Magnesium Total Bilirubin AST ALT Alkaline Phosphatase Total Protein Albumin Globulin Albumin/Globulin Ratio Diagnostic Findings Microbiology 03/28/24 03:20 Urine,Clean Catch Urine Culture - Final No growth - less than 1,000 colonies/mL. 03/27/24 14:46 Blood Aerobic Blood Culture - Final Streptococcus pneumoniae 03/27/24 14:46 Blood Anaerobic Blood Culture - Final Streptococcus pneumoniae 03/27/24 13:50 Blood Aerobic Blood Culture - Final Streptococcus pneumoniae 03/27/24 13:50 Blood Anaerobic Blood Culture - Final Streptococcus pneumoniae Medications Administered Home Medications Medication Instructions Recorded Confirmed Last Taken onabotulinumtoxinA 100 unit 100 unit subcut DIRECTED 04/16/23 03/27/24 Unk nown solution for injection (Botox) metformin 500 mg tablet 500 mg PO HS #90 tabs 06/03/23 03/27/24 03/26/24 cyclobenzaprine 10 mg tablet 10 mg PO HS PRN MUSCLE SPASMS #30 12/30/23 03/27/24 03/26/24 tabs lorazepam 0.5 mg tablet 0.5 mg PO HS #30 tabs 02/16/24 03/27/24 03/26/24 naltrexone 50 mg tablet 50 mg PO HS 03/27/24 03/27/24 03/26/24 Active Medications Generic Name Dose Route Start Last Admin Trade Name Freq PRN Reason Stop Dose Admin Acetaminophen 650 mg 03/27/24 20:20 03/31/24 12:31 Acetaminophen 325 Mg Tab PO 04/26/24 20:19 650 mg Q4H PRN Administration Pain or Fever Benzonatate 100 mg 03/27/24 20:20 03/28/24 20:18 Benzonatate 100 Mg Capsule PO 04/26/24 20:19 100 mg TID PRN Administration Cough Bisacodyl 5 mg 03/31/24 09:00 03/31/24 08:13 Bisacodyl 5 Mg Tabec PO 04/30/24 08:59 5 mg DAILY KATYA Administration Enoxaparin Sodium 40 mg 03/28/24 21:00 03/30/24 21:03 Enoxaparin Inj 40 Mg/0.4 Ml Syr SQ 04/27/24 20:59 40 mg HS KATYA Administration Guaifenesin 600 mg 03/27/24 21:00 03/31/24 08:13 Guaifenesin 600 Mg Tabcr PO 04/26/24 20:59 600 mg Q12 KATYA Administration Hydralazine HCl 50 mg 03/29/24 21:45 03/31/24 05:14 Hydralazine Tab 50 Mg Tab PO 04/28/24 21:44 Not Given Q8H KATYA Ceftriaxone Sodium 2,000 mg in 50 mls @ 100 mls/hr 03/28/24 09:00 03/31/24 08:51 Rocephin IV 04/11/24 08:59 Infused Q24H KATYA Infusion Insulin Aspart 0 units 03/27/24 20:20 03/31/24 12:21 Insulin Aspart Per Unit Charge SC 04/26/24 20:19 Not Given ACHS KATYA Lorazepam 0.5 mg 03/27/24 21:00 03/30/24 21:02 Lorazepam 0.5 Mg Tab PO 04/26/24 20:59 0.5 mg HS KATYA Administration Losartan Potassium 50 mg 03/31/24 09:00 03/31/24 08:55 Losartan Potassium 50 Mg Tab PO 04/30/24 08:59 50 mg QAM KATYA Administration Naltrexone HCl 50 mg 03/28/24 09:00 03/31/24 08:14 Naltrexone Hcl 50 Mg Tab PO 04/27/24 08:59 50 mg DAILY KATYA Administration Ondansetron HCl 4 mg 03/27/24 20:20 03/31/24 06:47 Ondansetron Inj 2 Mg/Ml 2 Ml Vial IV 04/26/24 20:19 4 mg Q6H PRN Administration Nausea Polyethylene Glycol 17 gm 03/31/24 09:00 03/31/24 08:14 Polyethylene (Miralax) 17 Gm Pack PO 04/30/24 08:59 17 gm DAILY KATYA Administration Sumatriptan Succinate 100 mg 03/27/24 20:20 03/31/24 13:12 Sumatriptan Succinate 100 Mg Tab PO 04/26/24 20:19 100 mg Q2H PRN Administration Migraine Headache
--- NOTE | 2024-03-31 14:28 | Magnetic Resonance Report ---
MR brain wo con CLINICAL HISTORY: severe headaches; bacteremia TECHNIQUE: Multiplanar and multisequence MR images of the brain were obtained without intravenous con trast. Comparison: Comparison is made to MRI brain 04/16/[address] head 04/11/2023 FINDINGS: No abnormal restricted diffusion is identified. Foci of T2 and FLAIR hyperintensity are noted in the paraventricular areas consistent with chronic small vessel ischemic disease. The ventricular system i s normal in appearance. No mass is seen. There is no mass effect or midline shift. There is no eviden ce of acute intraparenchymal hemorrhage. No extra axial fluid collections are seen. The corpus callos um, pituitary gland, and cerebellar tonsils appear grossly unremarkable. Flow voids of the major intracranial arterial vessels are identified. The imaged portions of the para nasal sinuses, mastoid air cells, and orbits are unremarkable. IMPRESSION: No acute abnormalities. ACT 112: Negative or not required by law. Electronically signed by: Jimbo Elaine M.D. 03/31/2024 2:27 PM
--- NOTE | 2024-03-31 19:17 | Hospitalist Progress Note ---
Date of Service March 31, 2024 Assessment & Plan (1) Bacteremia: Plan: 2nd strep pneumo - pansensitive cont rocephin IV 2 gram daily was on cefepime initially day #5 of effective abx therapy plan 10-14 days of Rx in total ID consult obtained and recs appreciated repeat blood cx's sent today for test of cure and to ensure sterility echo ordered - no evidence of endocarditis leukocytosis improving source - RLL pneumonia, LLL pneumonia (2) Severe headache: Plan: probably mixed tension-migraine h/a, former most prominent poor response to multiple agents including toradol, fioricet, baclofen, IV mag encouraged use of imitrex - did get a dose last pm with good relief; encouraged 1 more dose today when I checked on her later in the day the headache was fully resolved MRI brain obtained due to the headaches -- negative for acute findings; no sinusitis consider medrol dose pack at d/c difficult to know if the elevated BPs are contributing to headache or vice versa either way treating her BP as well (3) Sepsis: Plan: 2nd to b/l pneumonia improving/resolving (4) Acute hypoxemic respiratory failure: Plan: o2 weaned off by AM of 03/29/24 resolved 2nd to presumed strep b/l pneumonia (5) Pneumonia involving right lung: Plan: RLL, and LLL presumed pathogen - strep pneumoniae given the +blood cultures will need repeat CXR 6 weeks to ensure radiographic resolution (6) Uncontrolled hypertension: Plan: in light of T2DM (a1c 6.7%) added losartan increase to 50mg/day titrate this as needed and I stopped hydralazine (7) Hyperglycemia: Plan: a1c 6.7% c/w T2DM resume metformin + semaglutide at d/c Plan DVT prophylaxis - enoxaparin 40mg HS home tomorrow IF BP improved, blood cultures (repeat) negative, labs stable can transition to PO abx x 1 week at d/c care d/w ID provider by phone Admission and Anticipated Discharge Date Admission Date: March 27, 2024 Subjective saw patient twice today first visit was this am headache improved from yesterday but "still there" encouraged her to take another dose of imitrex as such helped last pm scant cough no dyspnea no JONES appetite still off but she doesn't like the food no new complaints except minimal back pain today Review of Systems Review of Systems: gen - no fevers or chills cv - no chest pain pulm - no wheezing Physical Exam Physical Exam: gen - nontoxic, awake/alert, looks MUCH better today neck - still no meningismus; no JVD; nontender to palpation over the sinuses mouth - MMM heart - RRR, s1 s2, no murmur lungs - rales R base 1/2 way up back; mild rales L base, 1/3 way up back - airation improved abd - soft NT ND BS+ ext - no edema, pulses 2+ b/l Results & Data Results & Data Vital Signs (Past 12 Hours) Vital Signs Temp Pulse Resp BP Pulse Ox O2 Del Method 03/31/24 14:36 36.7 C 82 16 168/104 H 97 Room Air 03/31/24 08:15 Room Air 03/31/24 07:23 36.4 C L 83 16 158/79 H 92 Room Air Laboratory Results Laboratory Results - last 24 hr 03/30/24 03/31/24 03/31/24 19:52 07:44 07:58 WBC 14.08 H RBC 4.26 Hgb 11.5 L Hct 36.0 L MCV 84.5 MCH 27.0 MCHC 31.9 L RDW Std Deviation 44.7 RDW Coeff of Francia 14.6 H Plt Count 450 H MPV 9.1 L Absolute Nucleated RBC 0.02 Nucleated RBC % (auto) 0.1 Sodium 137 Potassium 4.1 Chloride 99 Carbon Dioxide 30 Anion Gap 8 BUN 21 Creatinine 0.80 Est Cr Clr Drug Dosing 56.2 eGFR 77.75 BUN/Creatinine Ratio 26.3 H Glucose 111 H POC Glucose 103 H 111 H Calcium 9.1 03/31/24 03/31/24 11:25 16:35 WBC RBC Hgb Hct MCV MCH MCHC RDW Std Deviation RDW Coeff of Francia Plt Count MPV Absolute Nucleated RBC Nucleated RBC % (auto) Sodium Potassium Chloride Carbon Dioxide Anion Gap BUN Creatinine Est Cr Clr Drug Dosing eGFR BUN/Creatinine Ratio Glucose POC Glucose 112 H 112 H Calcium Diagnostic Findings Brain MRI 03/31/24 12:49 MR brain wo con CLINICAL HISTORY: severe headaches; bacteremia TECHNIQUE: Multiplanar and multisequence MR images of the brain were obtained without intravenous contrast. Comparison: Comparison is made to MRI brain 04/16/[address] head 04/11/2023 FINDINGS: No abnormal restricted diffusion is identified. Foci of T2 and FLAIR hyperintensity are noted in the paraventricular areas consistent with chronic small vessel ischemic disease. The ventricular system is normal in appearance. No mass is seen. There is no mass effect or midline shift. There is no evidence of acute intraparenchymal hemorrhage. No extra axial fluid collections are seen. The corpus callosum, pituitary gland, and cerebellar tonsils appear grossly unremarkable. Flow voids of the major intracranial arterial vessels are identified. The imaged portions of the paranasal sinuses, mastoid air cells, and orbits are unremarkable. IMPRESSION: No acute abnormalities. ACT 112: Negative or not required by law. Electronically signed by: Jimbo Elaine M.D. 03/31/2024 2:27 PM PG Care Time/CCT Total # of Minutes Spent Total Time Spent with Patient: Total time spent is greater than 50% in coordination of care (as documented) at patient's floor/unit and/or counseling patient: Coding Level of Care Code 26290 SUB INP/OBS CARE 3/50MIN Diagnoses Bacteremia R78.81 Severe headache R51.9 Sepsis A41.9 Acute hypoxemic respiratory failure J96.01 Pneumonia involving right lung J18.9 Uncontrolled hypertension I10 Hyperglycemia R73.9
[2024-04-01] MEDS: MELATONIN 3 MG TAB PO PRN (02:45)
[2024-04-01 07:25] VITALS: RESP 18; TEMP 98.2; O2SAT 96
[2024-04-01 08:03] LABS: Hematocrit (blood only) 40.3 % (37.0-47.0); Hemoglobin 12.8 g/dl (12.0-16.0); Mean Corpuscular Hemoglobin 27.4 pg (25.0-34.0); Mean Corpuscular Hgb Conc 31.8 g/dL (32.0-36.0); Mean Corpuscular Volume 86.3 fL (80.0-100.0); Mean Platelet Volume 10.3 fL (9.4-12.4); Nucleated RBC # (auto) 0.02 K/uL (0.00-0.12); Nucleated RBC % (auto) 0.1 %; Platelet Count 491 K/uL (130-400); RDW Coefficient of Variation 14.6 % (11.5-14.5); RDW Standard Deviation 46.5 fL (36.4-46.3); Red Blood Count 4.67 M/uL (4.20-5.40); White Blood Count 14.46 K/ul (4.8-10.8)
[2024-04-01] MEDS: cefUROXime axetil 500 MG TAB PO SCH (10:06)
[2024-04-01] MEDS: bisacodyL 10 MG SUPP PR STA (10:43)
--- NOTE | 2024-04-01 13:31 | Discharge Summary ---
Discharge Summary Date of Service April 01, 2024 Principal Dx & Hospital Course #1 = Principal Diagnosis (1) Bacteremia: 2nd strep pneumo - pansensitive cont rocephin IV 2 gram daily was on cefepime initially day #5 of effective abx therapy plan 10-14 days of Rx in total ID consult obtained and recs appreciated repeat blood cx's sent today for test of cure and to ensure sterility echo ordered - no evidence of endocarditis leukocytosis improving source - RLL pneumonia, LLL pneumonia (2) Severe headache: probably mixed tension-migraine h/a, former most prominent poor response to multiple agents including toradol, fioricet, baclofen, IV mag encouraged use of imitrex - did get a dose last pm with good relief; encouraged 1 more dose today when I checked on her later in the day the headache was fully resolved MRI brain obtained due to the headaches -- negative for acute findings; no sinusitis consider medrol dose pack at d/c difficult to know if the elevated BPs are contributing to headache or vice versa either way treating her BP as well (3) Sepsis: 2nd to b/l pneumonia improving/resolving (4) Acute hypoxemic respiratory failure: o2 weaned off by AM of 03/29/24 resolved 2nd to presumed strep b/l pneumonia (5) Pneumonia involving right lung: RLL, and LLL presumed pathogen - strep pneumoniae given the +blood cultures will need repeat CXR 6 weeks to ensure radiographic resolution (6) Uncontrolled hypertension: in light of T2DM (a1c 6.7%) added losartan increase to 50mg/day titrate this as needed and I stopped hydralazine (7) Hyperglycemia: a1c 6.7% c/w T2DM resume metformin + semaglutide at d/c Plan DVT prophylaxis - enoxaparin 40mg HS home tomorrow IF BP improved, blood cultures (repeat) negative, labs stable can transition to PO abx x 1 week at d/c care d/w ID provider by phone Admission HPI Per Admitting Provider The patient is a 73-year-old female with past medical history including postconcussion headache, prediabetes, daytime somnolence, fatigue, sleep apnea, migraine headaches, PLMD, SNHL bilaterally, peripheral neuropathy, cervicalgia, osteoarthritis, depression with anxiety, treatment with botulinum injections for migraine headache. She was recently traveling via airplane to [place], stopped at other airports, and was recently at the [employer] football game. Last evening she began develop significant right lower chest pain, shortness of breath, dyspnea on exertion, and cough. The cough to this point has been nonproductive. She also reports that when she got off at the airport, she was so fatigued that she could hardly walk. Due to worsening symptoms today, she presents to the ED for assessment. Chest x-ray in ED revealed a right lower lobe consolidation, and patient was referred for evaluation admission, of note, patient has a history of MRSA infection about 10 years ago. Discharge Exam gen - nontoxic, awake/alert, looks MUCH better today neck - still no meningismus; no JVD; nontender to palpation over the sinuses mouth - MMM heart - RRR, s1 s2, no murmur lungs - rales R base 1/2 way up back; mild rales L base, 1/3 way up back - airation improved abd - soft NT ND BS+ ext - no edema, pulses 2+ b/l Discharge Plan Discharge Items Patient Disposition: Home - Self-Care Reason For Visit: PNEUMONIA Discharge Diagnosis: 1. bilateral pneumonia, worse on right 2. strep bacteremia (bloodstream infection) 3. mixed tension-migraine headache - improved/resolved 4. hypertension 5. pre-diabetes / early type 2 diabetes; hemoglobin a1c 6.7% 6. acute hypoxic respiratory failure due to #1 - resolved 7. constipation Activity: As commented below Activity Comment: gradually increase activities over the next 7 days Exercise/Sports: Wait until after follow-up appointment Non-emergency contact: Primary Care Provider Call non-emergency contact if: you have any medication questions, your symptoms worsen, your pain is not controlled, your pain is worsening and you have a fever Follow-up/Referrals: Wander Howard MD [Primary Care Provider] - 04/08/24 10:30 am (1 week ) Diet: Carb Consistent or DM2 and Heart Healthy Addtl Attending Provider Instructions: Ms Strokes, You were hospitalized due to bilateral pneumonia. Your pneumonia was likely caused by strep pneumoniae, which is one of the most common causes of bacterial pneumonia. Unfortunately the strep traveled from the lung and got into the bloodstream; we call this "bacteremia." Both pneumonia & bacteremia make people quite ill and it takes time (up to a couple of weeks) to fully recover from this. Focus on good nutrition, hydration, and rest upon return home. You received IV antibiotics during your stay and all of your symptoms improved with such. Repeat blood cultures taken on 03/31/24 are negative to date. If these remain negative this means that the bloodstream infection has resolved. During the stay we performed echocardiogram to ensure that the blood infection did not cause infection of your heart valves. The echocardiogram was normal. We also performed MRI of the brain due to the severe headache you had - this was negative for stroke, bleeding, sinus infection, and other abnormalities. I suspect your severe headache was a tension-migraine headache which often occurs when people are sick and feeling poorly. Your headache responded to various medicines including imitrex (sumatriptan). It is possible that your elevated blood pressures may have been contributing to headache as well, or vice versa. Infectious diseases saw you in consult and have recommended 1 additional week of oral antibiotics at home. Recommendations - 1. antibiotics for pneumonia/bacteremia - * cefpodoxime 400mg twice daily x 7 days, first dose TONIGHT * most common side effect - diarrhea 2. for high blood pressure - * start losartan 50mg once daily each morning, first dose 04/02/24 * please purchase an electronic BP cuff so that you can monitor your blood pressures at home * check your blood pressure at least daily; twice daily is ok as well * write all numbers down in a notebook so that your family doctor can review them 3. for preDM / early type 2 diabetes - resume metformin 500mg with a meal/snack daily * most common side effect - loose stool, stomach upset 4. have a repeat 2-view chest x-ray in 6 weeks to ensure all the pneumonia is radiographically resolved; your family doctor can order this for you 5. talk to your family doctor about getting "Pneumovax" vaccine in the future; I would wait at least a couple of months then get it then; this type of vaccine will protect you against future infections from strep pneumoniae bacterium 6. for the next 7 days feel free to take a probiotic supplement (over the counter) and eat a serving or two of yogurt as well; this may help prevent diarrhea from the antibiotics 7. when going out in public over the next 1-2 weeks strongly consider wearing a mask so that you don't come down with another respiratory illness; there is considerable COVID, flu, and numerous other respiratory viruses circulating in the community; if you get exposed that would be a back to back illness and you want to avoid that if possible 8. for migraine headache - * if you get a recurrent headache you can take [id number]-pdbhxqt motrin up to 800mg as needed for headache * you can also use your imitrex as needed, max 2 doses in 24 hours 9. constipation - * you may need to take miralax dcge-ldx-tedxrcs once daily for a week or two until your bowels become regular again * if miralax by itself is not helping you may need to take a 2nd agent such as ooro-msy-mzhccbp senokot; you can take both meds together if needed * to really get things going consider using a fleets enema x 1 upon return home * stay well-hydrated and eat plenty of fruits/veggies to help your stools Follow-up - see separate section Return to [facility] if - * you have fever over 100 degrees * you develop severe diarrhea (3 or more loose stools over 24 hours) * you have worsening shortness of breath * you have chest pains * you develop severe headaches not responding to your usual medicines * any other concerns It was our pleasure to care for you! -Dr Islas Pending Studies at Discharge: Yes Studies:: repeat blood cultures, but thus far negative Stand-Alone Forms: My [facility], Smoking Cessation Medications and DC Order Prescriptions: New losartan 50 mg Tablet 50 mg PO QAM Qty: 30 2RF Rx Instructions: for high blood pressure sumatriptan succinate [Imitrex] 100 mg Tablet 100 mg PO Q2H PRN (Reason: migraine headache) Qty: 10 0RF Rx Instructions: max 2 tablets in 24 hours. cefpodoxime 200 mg tablet 400 mg PO BID 7 Days Qty: 28 0RF Rx Instructions: must administer with a meal/food Continued cyclobenzaprine 10 mg tablet 10 mg PO HS PRN (Reason: MUSCLE SPASMS) Qty: 30 5RF lorazepam 0.5 mg tablet 0.5 mg PO HS Qty: 30 1RF Botox 100 unit recon soln 100 unit subcut DIRECTED naltrexone 50 mg tablet 50 mg PO HS metformin 500 mg tablet 500 mg PO HS Qty: 30 1RF Rx Instructions: take with food. Discharge Orders: Discharge Order (Routine); Ordered 04/01/24 Ordered By: Manoj Rubin/Other Patient Handouts: A1C, What Is Pneumonia?, ED Bacteremia, Suspected (Adult) Admission Data Admit Date/Time: 03/27/24 14:46 Attending Provider: Manoj Islas Admit Provider: Satish Mayfield Primary Care Provider: Wander Howard V. Other Providers: Satish Mayfield; Ally Roberts; Diana Rodriguez; Kylee Correa; Stu Garcia; Marlene Koch; Ngozi Fields Hospital Stay Data Consultations 03/27/24 14:21 ED Decision to Admit Stat 03/31/24 09:09 Consult Infectious Diseases Routine Diagnostic Imagining Performed 03/31/24 12:49 MR brain wo con Urgent Pending Results Patient Have Any Pending Studies at Discharge: Yes Discharge Instructions Given to Patient (Per Discharging Provider) Ms Strokes, You were hospitalized due to bilateral pneumonia. Your pneumonia was likely caused by strep pneumoniae, which is one of the most common causes of bacterial pneumonia. Unfortunately the strep traveled from the lung and got into the bloodstream; we call this "bacteremia." Both pneumonia & bacteremia make people quite ill and it takes time (up to a couple of weeks) to fully recover from this. Focus on good nutrition, hydration, and rest upon return home. You received IV antibiotics during your stay and all of your symptoms improved with such. Repeat blood cultures taken on 03/31/24 are negative to date. If these remain negative this means that the bloodstream infection has resolved. During the stay we performed echocardiogram to ensure that the blood infection did not cause infection of your heart valves. The echocardiogram was normal. We also performed MRI of the brain due to the severe headache you had - this was negative for stroke, bleeding, sinus infection, and other abnormalities. I suspect your severe headache was a tension-migraine headache which often occurs when people are sick and feeling poorly. Your headache responded to various medicines including imitrex (sumatriptan). It is possible that your elevated blood pressures may have been contributing to headache as well, or vice versa. Infectious diseases saw you in consult and have recommended 1 additional week of oral antibiotics at home. Recommendations - 1. antibiotics for pneumonia/bacteremia - * cefpodoxime 400mg twice daily x 7 days, first dose TONIGHT * most common side effect - diarrhea 2. for high blood pressure - * start losartan 50mg once daily each morning, first dose 04/02/24 * please purchase an electronic BP cuff so that you can monitor your blood pressures at home * check your blood pressure at least daily; twice daily is ok as well * write all numbers down in a notebook so that your family doctor can review them 3. for preDM / early type 2 diabetes - resume metformin 500mg with a meal/snack daily * most common side effect - loose stool, stomach upset 4. have a repeat 2-view chest x-ray in 6 weeks to ensure all the pneumonia is radiographically resolved; your family doctor can order this for you 5. talk to your family doctor about getting "Pneumovax" vaccine in the future; I would wait at least a couple of months then get it then; this type of vaccine will protect you against future infections from strep pneumoniae bacterium 6. for the next 7 days feel free to take a probiotic supplement (over the counter) and eat a serving or two of yogurt as well; this may help prevent diarrhea from the antibiotics 7. when going out in public over the next 1-2 weeks strongly consider wearing a mask so that you don't come down with another respiratory illness; there is considerable COVID, flu, and numerous other respiratory viruses circulating in the community; if you get exposed that would be a back to back illness and you want to avoid that if possible 8. for migraine headache - * if you get a recurrent headache you can take vbxu-ppb-frjdvxd motrin up to 800mg as needed for headache * you can also use your imitrex as needed, max 2 doses in 24 hours 9. constipation - * you may need to take miralax cvtq-hmg-forynsm once daily for a week or two until your bowels become regular again * if miralax by itself is not helping you may need to take a 2nd agent such as sjij-yqk-zsfgxjo senokot; you can take both meds together if needed * to really get things going consider using a fleets enema x 1 upon return home * stay well-hydrated and eat plenty of fruits/veggies to help your stools Follow-up - see separate section Return to [facility] if - * you have fever over 100 degrees * you develop severe diarrhea (3 or more loose stools over 24 hours) * you have worsening shortness of breath * you have chest pains * you develop severe headaches not responding to your usual medicines * any other concerns It was our pleasure to care for you! -Dr Islas Coding Diagnoses Bacteremia R78.81 Severe headache R51.9 Sepsis A41.9 Acute hypoxemic respiratory failure J96.01 Pneumonia involving right lung J18.9 Uncontrolled hypertension I10 Hyperglycemia R73.9
[2024-04-01 14:04] VITALS: BP 167/98; PULSE 82
[2024-04-02 19:33] LABS: A calco-baum cmplx NotReported Not Detected (NotDetected); Bact fragilis Not Reported Not Detected (NotDetected); Blood Culture Id Panel See PCR Comment (NotDetected); C auris Not Reported Not Detected (NotDetected); Calbicans Not Reported Not Detected (NotDetected); Candida glabrata Not Reported Not Detected (NotDetected); Candida krusei Not Reported Not Detected (NotDetected); Cneoformans/gatti Not Reported Not Detected (NotDetected); Cparapsilosis Not Reported Not Detected (NotDetected); E cloacae compx Not Reported Not Detected (NotDetected); Efaecalis Not Reported Not Detected (NotDetected); Efaecium Not Reported Not Detected (NotDetected); Enterobacterales Not Reported Not Detected (NotDetected); Escherichia coli Not Reported Not Detected (NotDetected); H influenzae Not Reported Not Detected (NotDetected); K aerogenes Not Reported Not Detected (NotDetected); Koxytoca Not Reported Not Detected (NotDetected); Kpneumoniae grp Not Reported Not Detected (NotDetected); Lmonocyt Not Reported Not Detected (NotDetected); N meningitidis Not Reported Not Detected (NotDetected); P aeruginosa Not Reported Not Detected (NotDetected); Proteus spp Not Reported Not Detected (NotDetected); Salmonella spp Not Reported Not Detected (NotDetected); Staph lugdunensis Not Reported Not Detected (NotDetected); Staph spp. Not Reported DETECTED (NotDetected); Staphaureus Not Reported Not Detected (NotDetected); Staphepi Not Reported DETECTED (NotDetected); Staphylococcus spp. DETECTED (NotDetected); Stenmaltophilia Not Reported Not Detected (NotDetected); Strep agal(GrpB) Not Reported Not Detected (NotDetected); Strep pneum Not Reported Not Detected (NotDetected); Strep pyog (GrpA) Not Reported Not Detected (NotDetected); Strep spp Not Reported Not Detected (NotDetected); mecAC Resistant Gene DETECTED (NotDetected)
[2024-04-02 19:41] LABS: Staphylococcus epidermidis DETECTED (NotDetected)
== END 2024-04-01 15:15 | disposition home or self-care (01) | DRG 871 ==
LOC: ED 13:07 → SUATTDRO 14:46 → 2N 14:46 → 3N 03-28 22:57

== ENCOUNTER 2024-10-09 00:38 | Inpatient (IN) ==
--- NOTE | 2024-10-09 01:01 | Emergency Department Note ---
History of Present Illness General Chief Complaint: Abdominal Pain Stated Complaint: RUQ Abdominal Pain Time Seen by Provider: 10/09/24 00:42 History of Present Illness Provider Complaint: abdominal pain Onset (ago): 1 hour(s) Pain Consistency: constant Location: LUQ, RUQ and epigastric Radiation: none Severity: moderate Quality: + cramping, + stabbing, + aching, + fullness, + sharp and + dull Relieved By: + nothing Exacerbated By: + nothing Context: no foreign travel, no possible food poisoning, no sick contacts, no recent antibiotic use, no recent surgery/procedure, no recent injury or no history of similar episodes Associated Symptoms: + melena; no nausea, no vomiting, no diarrhea, no fever, no chills, no constipation, no dysuria, no hematemesis, no hematuria, no headache, no neck pain, no back pain, no chest pain and no breathing difficulty Home Medications Medication Instructions Recorded Confirmed Type onabotulinumtoxinA 100 unit 100 unit subcut DIRECTED 04/16/23 10/09/24 History solution for injection (Botox) sumatriptan succinate 100 mg 100 mg PO Q2H PRN migraine 04/01/24 10/09/24 Rx tablet (Imitrex) headache #10 tabs cyclobenzaprine 10 mg tablet 10 mg PO HS PRN MUSCLE SPASMS #30 04/30/24 10/09/24 Rx tabs lorazepam 0.5 mg tablet 0.5 mg PO HS #30 tabs 04/30/24 10/09/24 Rx metformin 500 mg tablet 500 mg PO HS #90 tabs 05/24/24 10/09/24 Rx atorvastatin 20 mg tablet 20 mg PO DAILY 08/11/24 10/09/24 History furosemide 20 mg tablet 20 mg PO DAILY PRN does not take 08/11/24 10/09/24 History meloxicam 15 mg tablet 15 mg PO DAILY PRN (Drug) Ingestion 08/11/24 10/09/24 History aspirin 81 mg tablet 81 mg PO DAILY #90 tabs 08/24/24 10/09/24 Rx methocarbamol 500 mg tablet 500 mg PO BIDWMEAL PRN Low back 09/03/24 10/09/24 Rx pain #20 tabs Allergies Allergy/AdvReac Type Severity Reaction Status Date / Time doxycycline Allergy Intermediate RASH/Headac Verified 10/09/24 01:12 he Penicillins Allergy Intermediate Rash Verified 10/09/24 01:12 Sulfa (Sulfonamide Allergy Intermediate Rash Verified 10/09/24 01:12 Antibiotics) adhesive Allergy Mild RASH/BURN Verified 10/09/24 01:12 WITH BANDAIDS buspirone AdvReac Intermediate Palpitation Verified 10/09/24 01:12 s pesticide AdvReac Intermediate Confusion Verified 10/09/24 01:12 Past Med/Surg History Problem List (Updated 10/09/24 @ 03:58 by Gavin Samson MD) Pneumoperitoneum (Acute) Pneumoperitoneum Injury of toe on left foot Small vessel disease, cerebrovascular (Chronic) Diabetes mellitus (Chronic) H/O traumatic brain injury Post-concussion headache Allergy to sulfa drugs Allergy to penicillin History of Lyme disease Excessive sleepiness Fatigue Left knee pain Ductal hyperplasia of breast PLMD (periodic limb movement disorder) RLS (restless legs syndrome) Anosmia Bilateral tinnitus Worse in left ear Sensorineural hearing loss (SNHL) of both ears Overweight (Chronic) Depression with anxiety Obesity Vitamin D deficiency disease Health care maintenance (Chronic) Cervicalgia Post concussion syndrome Urge incontinence of urine (Acute) Occipital neuralgia HX Insomnia Osteoarthritis Peripheral neuropathy Sleep apnea "MILD" NO DEVICE USED Migraine headache BOTOX INJECTIONS FOR TX (EVERY 84 DAYS) Medical History Peripheral neuropathy hx History of trigeminal neuralgia left side Hx of migraines Hx of insomnia Hx of traumatic brain injury due to 3 falls in one year Disordered eating hx Palpitations hx, no recent issues Papilloma of breast hx Prediabetes Uncontrolled hypertension pt denies Acute hypoxemic respiratory failure hx, 03/29/24, came to [place] ER, dx pneumonia and sepsis right lung, overnight stay; no issues since Lyme disease hx Septic arthritis of shoulder 2010. MRSA, after shoulder injection. treated by Dr Zhang. Tinnitus of left ear Left-sided face pain hx, due to trigeminal neuralgia Dysphasia hx Brain fog hx Hypertension Drug-induced weight gain hx Lyme arthritis hx, left side Chronic back pain Sacroiliitis hx, multiple injections done for this Memory loss NO ISSUES CURRENTLY PER PT Concussion x3 in 2019 (mar/apr/may), f/u dr. zamora every 3 months, went to "concussion school" Fibromyalgia "mild" Depression HX Anxiety History of colon polyps Mitral valve prolapse no premed with dental Surgical History S/P epidural steroid injection multiple SI joint injections Hx of breast lump removal History of oral surgery APR 05 2021 - 3 EXTRACTIONS AND 3 IMPLANTS - HEALING Status post left partial knee replacement History of colonoscopy with polypectomy (2019) History of surgical procedure on mouth duplicate History of root canal procedure History of dilatation and curettage uterine ablation History of arthroscopy rt knee History of tooth extraction duplicate History of blepharoplasty bilat. Status post tubal ligation HX Family History Father Family history of diabetes mellitus Family hx colonic polyps Colorectal cancer Heart disease Hypertension Grandmother (Paternal) Family history of diabetes mellitus Sister Family history of diabetes mellitus Ovarian cancer Breast cancer Cervical cancer Mother Breast cancer Grandfather (Maternal) Myocardial infarction Other No family history of adverse response to anesthesia No family history of bleeding disorder Denies family history of Prostate cancer Social History Smoking Status: Never smoker Second Hand Exposure: No; Do You Dip or Chew Tobacco: No; Hx Alcohol Use: No Hx Substance Use: No Preferred Language: Portuguese Communication Ability: Effective Visual Impairment: No Limitations Hearing Ability: Normal Retail Selling Specialist Required: No Beliefs That Will Affect Care: None marital status: Current Living Situation: Alone current occupational status: retired 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 How many Children do You have: 0 Feels Safe at Home: Yes Childhood Exposure to Second-Hand Smoke: No Diet: regular during the past year weight has: increased > 10 lbs Dental Care, Regularly: Yes Physical Activity Frequency: Does not Exercise Seatbelt Use: always Sunscreen Use: Yes Assistive Devices: None Physical Exam 2 Vital Signs: Vital Signs - 24 hr 10/09/24 00:54 10/09/24 01:07 10/09/24 01:29 Temperature 36.7 C Temperature Source Oral Pulse Rate 93 H 93 H 90 Respiratory Rate 20 22 Blood Pressure 176/86 H 177/99 H Blood Pressure Fallon n 116 130 Pulse Oximetry 98 95 Oxygen Delivery Me thod Room Air Sepsis Recent Feve r Within 48 Hours No Sepsis New/Unexpla ined Change in Men shauna Status N/A Sepsis Action Take n by Nursing No Action Required 10/09/24 01:44 10/09/24 02:00 10/09/24 03:00 Temperature Temperature Source Pulse Rate 88 96 H 88 Respiratory Rate 20 20 24 Blood Pressure 168/80 H 164/94 H 172/96 H Blood Pressure Fallon n 92 114 131 Pulse Oximetry 96 97 97 Oxygen Delivery Me thod Sepsis Recent Feve r Within 48 Hours Sepsis New/Unexpla ined Change in Men shauna Status Sepsis Action Take n by Nursing Physical Exam: Physical Exam GENERAL: oriented to person, place, and time. appears well-developed and well- nourished. She does not appear distressed. HENT: Exam performed. -Head: Normocephalic and atraumatic. -Right Ear: External ear normal. No mastoid erythema -Left Ear: External ear normal. No mastoid erythema -Mouth/Throat: The oropharynx is clear and moist. No trismus in the jaw. No dental abscesses or uvula swelling. No oropharyngeal exudate or tonsillar abscesses. EYES: Conjunctivae and EOM are normal.Right eye exhibits no discharge. Left eye exhibits no discharge. No scleral icterus. NECK: Normal range of motion. Neck supple. No JVD present. No tracheal deviation and normal range of motion present. CV: Normal rate, regular rhythm, normal heart sounds and intact distal pulses. There is no peripheral edema. Palpable radial pulses bue. PULM/CHEST: Effort normal and breath sounds normal. No respiratory distress. No stridor. no wheezes.no rales. -Chest Wall: no tenderness to palpation ABD: The abdomen is soft. Bowel sounds are normal. Mild distension. No mass is present. There is tenderness to palpation of the left upper quadrant right upper quadrant and epigastric area. There is no rebound, no guarding, no Abbott's sign and no tenderness at McBurney's point. Rovsig negative Rectal: Rectal exam performed with female nursing assistant restaurant general manager Gavi. No bright red blood per rectum Hemoccult negative. MUSC/SKEL: Normal range of motion. There is no peripheral edema, tenderness or deformity. NEURO: Motor and sensation grossly intact. SKIN: Skin is warm and dry. not diaphoretic. PSYCH: normal mood and affect. Behavior is normal. Judgment and thought content normal. Course Course 0042: The patient was evaluated in room B7. A complete history and physical exam was performed Cardiac monitoring: An order was placed for continuous cardiac monitoring. The monitor shows a rate of 90 with sinus rhythm interpreted by ne 0310: Vital signs stable. Labs show white blood cell count 10.[address] abdomen pelvis shows mild pneumoperitoneum a few small air foci along the pylorus of the stomach omental fat stranding along the greater curvature of the stomach noticed along the ascending right paracolic region. Patient allergic to penicillin. Cipro Flagyl ordered for the patient. Spoke with SENTHIL Diaz for Dr. Phelps general surgery. He states he will be down to evaluate the patient. 0356: Patient was evaluated by general surgery at bedside. They will take the patient to the OR. Administered Medications Metronidazole (Flagyl) 500 mg in 100 mls @ 100 mls/hr IV NOW STA Stop: 10/09/24 03:58 Last Admin: 10/09/24 03:11 Dose: 100 mls/hr Documented By: OSWALDO Discontinued Medications Al Hydrox/Mg Hydrox/Simethicone (Aluminum/Magnesium Susp 30 Ml Udc) 15 ml PO NOW STA Stop: 10/09/24 01:37 Last Admin: 10/09/24 01:41 Dose: 15 ml Documented By: OSWALDO Sodium Chloride (Nss) 500 mls @ 999 mls/hr IV .Q31M ONE Stop: 10/09/24 01:17 Last Admin: 10/09/24 01:02 Dose: 999 mls/hr Documented By: OSWALDO Ioversol (Optiray 320 100ml) 93 ml IV ONCE ONE Stop: 10/09/24 01:22 Last Admin: 10/09/24 01:21 Dose: 93 ml Documented By: ELVA Ketorolac Tromethamine (Ketorolac Tromethamine 15 Mg/Ml Vial) 15 mg IV NOW STA Stop: 10/09/24 00:48 Last Admin: 10/09/24 01:02 Dose: 15 mg Documented By: OSWALDO Morphine Sulfate (Morphine Sulfate 4 Mg/Ml 1 Ml Carp\\Vial) 4 mg IV NOW STA Stop: 10/09/24 01:37 Last Admin: 10/09/24 01:41 Dose: 4 mg Documented By: OSWALDO Ondansetron HCl (Ondansetron Inj 2 Mg/Ml 2 Ml Vial) 4 mg IV NOW STA Stop: 10/09/24 00:48 Last Admin: 10/09/24 01:02 Dose: 4 mg Documented By: OSWALDO Medical Decision Making Laboratory Data Attestation: I reviewed the patient's lab results. 10/09/24 01:00 10/09/24 01:00 Lab Results 10/09/24 10/09/24 Range/Units 01:00 01:08 WBC 10.56 (4.8-10.8) K/ul RBC 3.12 L (4.20-5.40) M/uL Hgb 8.6 L (12.0-16.0) g/dl POC Hgb 9.5 L (12.0-16.0) g/dl Hct 28.0 L (37.0-47.0) % POC Hct 28 L (37-47) % MCV 89.7 (80.0-100.0) fL MCH 27.6 (25.0-34.0) pg MCHC 30.7 L (32.0-36.0) g/dL RDW Std Deviation 52.6 H (36.4-46.3) fL RDW Coeff of Francia 16.0 H (11.5-14.5) % Plt Count 305 (130-400) K/uL MPV 9.9 (9.4-12.4) fL Immature Gran % (Auto) 4.5 % Neut % (Auto) 72.8 % Lymph % (Auto) 14.9 % Steele % (Auto) 7.3 % Eos % (Auto) 0.1 % Baso % (Auto) 0.4 % Neut # (Auto) 7.69 H (1.40-6.50) K/uL Lymph # (Auto) 1.57 (1.20-3.40) K/uL Steele # (Auto) 0.77 H (0.11-0.59) K/uL Eos # (Auto) 0.01 (0.00-0.50) K/uL Baso # (Auto) 0.04 (0.00-0.20) K/uL Immature Gran # (Auto) 0.48 H (0.01-0.20) K/uL Absolute Nucleated RBC 0.07 (0.00-0.12) K/uL Nucleated RBC % (auto) 0.7 % PT Cancelled INR Cancelled APTT Cancelled PTT Ratio Cancelled POC Sodium 144 (135-144) mmol/L Sodium 142 (136-145) mmol/L POC Potassium 3.5 (3.3-5.0) mmol/L Potassium 3.5 (3.5-5.1) mmol/L POC Chloride 111 (101-112) mmol/L Chloride 112 H (98-107) mmol/L Carbon Dioxide 19 L (21-32) mmol/L POC Total CO2 18 L (24-31) mmol/L Anion Gap 11 (3-11) POC Anion Gap 19.0 (16-25) mmol/L POC BUN 33 H (7-18) mg/dl BUN 36 H (6-23) mg/dl Creatinine 1.11 (0.6-1.2) mg/dl POC Creatinine 1.2 (0.6-1.3) mg/dl Est Cr Clr Drug Dosing 39.1 ml/min eGFR 52.48 BUN/Creatinine Ratio 32.4 H (10-20) Glucose 194 H (70-99(Fasting)) mg/dl POC Glucose (other) 185 H (70-99) mg/dl Calcium 9.0 (8.6-10.3) mg/dl POC Ioniz Calcium Karely 1.15 (1.12-1.32) mmol/l Total Bilirubin 0.5 (0.2-1.0) mg/dl Direct Bilirubin 0.1 (0-0.2) mg/dl AST 23 (13-39) U/L ALT 24 (7-52) U/L Alkaline Phosphatase 81 (34-104) U/L Troponin I High Sens 7.7 (0-14) pg/ml Total Protein 7.5 (6.0-8.3) gm/dl Albumin 4.2 (3.4-5.0) gm/dl Lipase 44 (11-82) U/L Imaging Data Radiologist's Impression: Abdomen/Pelvis CT 10/09/24 00:47 EXAM: CT abd pelvis IV con only CLINICAL HISTORY: ruq epigastric luq pain TECHNIQUE: Multiple contiguous axial images were obtained from the level of diaphragm to the pubis symphysis. This study was acquired after the IV administration of iodinated contrast material, given the patients indications for the examination. If IV contrast material had not been administered, the likelihood of detecting abnormalities relevant to the patients condition would have been substantially decreased. Coronal and sagittal reformatted images were generated and reviewed to improve anatomic localization and optimize lesion detection. CT scan was performed according to ALARA (as low as reasonable achievable). COMPARISON: No FINDINGS: The visualized lung bases show ground glass densities and septal thickening in bilateral lower lobes. ABDOMEN/PELVIS: The liver is normal in size and attenuation. Calcified granuloma of size 6.5mm along segment VII of liver. Few small hepatic cysts. There is no intra or extrahepatic biliary ductal dilatation. Hepatic vasculature is patent. The gallbladder is unremarkable. The spleen, pancreas, and adrenal glands are unremarkable. Few small hypodense lesions in left adrenal gland. The kidneys are normal in size and attenuation. There is no hydronephrosis. Mild left perinephric fat stranding. Few small bilateral renal cortical cysts and left renal sinus cysts. No renal calculi or renal masses are identified. The ureters are normal in caliber and no ureteral calculi are seen. The bladder is normal in contour. Mild pneumoperitoneum. Few small free air foci along the pylorus of stomach. No evidence of focal or diffuse bowel wall thickening or evidence of bowel obstruction is seen. The appendix is visualized in the right lower quadrant and appears within normal limits. No adenopathy or fluid collections are seen. The aorta is normal in caliber. No aggressive appearing osseous lesions are identified. Omental fat stranding along the greater curvature of stomach and along the ascending colon in right paracolic region. Diffuse pelvic wall fat stranding. Generalized osteopenia with anterior wedge compression of T11 and T12 vertebral body. IMPRESSION: 1. Mild pneumoperitoneum with few small free air foci along the pylorus of stomach. 2. Omental fat stranding along the greater curvature of stomach and along the ascending colon in right paracolic region. 3. Diffuse pelvic wall fat stranding. [id number].[id number] These findings are likely suggestive of either iatrogenic pneumoperitoneum, omental /OBX.5.1.1OBX.5.1.2 pelvic wall fat stranding (Suggest- Correlation with surgical history if any) or focal small rupture of pylorus of stomach with resultant mild pneumoperitoneum./OBX.5.1.2/OBX.5.1 1. Mild left perinephric fat stranding. Few small bilateral renal cortical cysts and left renal sinus cysts. 2. Calcified granuloma along segment VII of liver. 3. Few small hepatic cysts. 4. Few small hypodense lesions in left adrenal gland. 5. Generalized osteopenia with anterior wedge compression of T11 and T12 vertebral body. Electronically signed by Taiwo Mercado 10-09-2024 02:51 AM Chest X-Ray 10/09/24 00:48 EXAM: XR chest 1V portable CLINICAL HISTORY: epigastric pain. TECHNIQUE: An X-ray image of the chest is obtained in AP projection. COMPARISON: 03/27/2024, CR Chest FINDINGS: Pulmonary Parenchyma: The patient is rotated Inadequate inspiration is seen Chest leads are identified Linear densities are identified in the left lung lower zone, likely due to atelectatic bands also seen in prior examination. No evidence of consolidation, collapse. No pulmonary nodules are identified. No evidence of pleural effusion or pleural thickening. Heart and Mediastinum: Heart size is enlarged, likely due to AP projection and inadequate inspiration. No mediastinal widening or masses. No hilar or mediastinal lymphadenopathy. Bony Thorax: Bony thorax appears intact without fractures or deformities. Soft Tissues: Soft tissues overlying the chest wall are unremarkable. IMPRESSION: 1. No evidence of consolidation/collapse. 2. No pleural effusion bilaterally. 3. The previously seen opacification in the right lower zone is not identified on the current examination. Electronically signed by Arcadio Johnson 10-09-2024 02:22 AM ECG Data Attestation: I personally reviewed and interpreted this ECG as follows: Rate (beats per minute): 96 Rhythm: normal sinus Findings: no ST depression, no ST elevation or no prolonged QT MDM Narrative 0042: The patient was evaluated in room B7. A complete history and physical exam was performed Cardiac monitoring: An order was placed for continuous cardiac monitoring. The monitor shows a rate of 90 with sinus rhythm interpreted by me 0310: Vital signs stable. Labs show white blood cell count 10.[address] abdomen pelvis shows mild pneumoperitoneum a few small air foci along the pylorus of the stomach omental fat stranding along the greater curvature of the stomach noticed along the ascending right paracolic region. Patient allergic to penicillin. Cipro Flagyl ordered for the patient. Spoke with SENTHIL Diaz for Dr. Phelps general surgery. He states he will be down to evaluate the patient. 0356: Patient was evaluated by general surgery at bedside. They will take the patient to the OR. Impression & Plan Pneumoperitoneum Discharge Plan Visit Data Chief Complaint: Abdominal Pain Stated Complaint: RUQ Abdominal Pain ED Provider: Gavin Samson Discharge Problem: Pneumoperitoneum Patient Disposition: Admitted As Inpatient Condition: Serious Forms Stand Alone Forms: My [facility] Prescriptions Prescriptions: No Action atorvastatin 20 mg tablet 20 mg PO DAILY meloxicam 15 mg tablet 15 mg PO DAILY PRN (Reason: (Drug) Ingestion) furosemide 20 mg tablet 20 mg PO DAILY PRN (Reason: does not take) methocarbamol 500 mg tablet 500 mg PO BIDWMEAL PRN (Reason: Low back pain) Qty: 20 0RF aspirin 81 mg tablet 81 mg PO DAILY Qty: 90 3RF metformin 500 mg tablet 500 mg PO HS Qty: 90 1RF Hold Instructions: low A1c Rx Instructions: ON HOLD lorazepam 0.5 mg tablet 0.5 mg PO HS Qty: 30 1RF cyclobenzaprine 10 mg tablet 10 mg PO HS PRN (Reason: MUSCLE SPASMS) Qty: 30 5RF Hold Instructions: Do not take Flexeril/due to methocarbamol Botox 100 unit recon soln 100 unit subcut DIRECTED Rx Instructions: every 3 months sumatriptan succinate [Imitrex] 100 mg Tablet 100 mg PO Q2H PRN (Reason: migraine headache) Qty: 10 0RF Rx Instructions: max 2 tablets in 24 hours. Referrals Referrals: Wander Howard MD [Primary Care Provider] -
[2024-10-09] MEDS: ONDANSETRON INJ 2 MG/ML 2 ML VIAL IV STA (01:02)
[2024-10-09] MEDS: SODIUM CHLORIDE 0.9% 500 ML IV ONE (01:02)
[2024-10-09] MEDS: KETOROLAC TROMETHAMINE 15 MG/ML VIAL IV STA (01:02)
[2024-10-09 01:19] LABS: Hematocrit (blood only) 28.0 % (37.0-47.0); Hemoglobin 8.6 g/dl (12.0-16.0); Immature Granulocytes # (auto) 0.48 K/uL (0.01-0.20); Immature Granulocytes % (auto) 4.5 %; Mean Corpuscular Hemoglobin 27.6 pg (25.0-34.0); Mean Corpuscular Volume 89.7 fL (80.0-100.0); Platelet Count 305 K/uL (130-400); RDW Standard Deviation 52.6 fL (36.4-46.3); Red Blood Count 3.12 M/uL (4.20-5.40); White Blood Count 10.56 K/ul (4.8-10.8)
[2024-10-09] MEDS: OPTIRAY 320 100ml IV ONE (01:21)
[2024-10-09 01:36] LABS: Alanine Aminotransferase 24.0 U/L (7-52); Alkaline Phosphatase 81.0 U/L (34-104); Anion Gap 11.0 (3-11); Bilirubin,Total 0.5 mg/dl (0.2-1.0); Blood Urea Nitrogen 36.0 mg/dl (6-23); Calcium 9.0 mg/dl (8.6-10.3); Carbon Dioxide 19.0 mmol/L (21-32); Chloride 112.0 mmol/L (98-107); Creatinine Clr Calc Pharmacy 39.1 ml/min; Glucose 194.0 mg/dl (70-99(Fasting)); Lipase 44.0 U/L (11-82); Potassium 3.5 mmol/L (3.5-5.1); Sodium 142.0 mmol/L (136-145); Total Protein 7.5 gm/dl (6.0-8.3)
[2024-10-09] MEDS: MoRPHine SULFATE 4 MG/ML 1 ML CARP\\VIAL IV STA (01:41)
[2024-10-09] MEDS: ALUMINUM/MAGNESIUM SUSP 30 ML UDC PO STA (01:41)
--- NOTE | 2024-10-09 02:22 | XRay Report ---
EXAM: XR chest 1V portable CLINICAL HISTORY: epigastric pain. TECHNIQUE: An X-ray image of the chest is obtained in AP projection. COMPARISON: 03/27/2024, CR Chest FINDINGS: Pulmonary Parenchyma: The patient is rotated Inadequate inspiration is seen Chest leads are identified Linear densities are identified in the left lung lower zone, likely due to atelectatic bands also seen in prior examination. No evidence of consolidation, collapse. No pulmonary nodules are identified. No evidence of pleural effusion or pleural thickening. Heart and Mediastinum: Heart size is enlarged, likely due to AP projection and inadequate inspiration. No mediastinal widening or masses. No hilar or mediastinal lymphadenopathy. Bony Thorax: Bony thorax appears intact without fractures or deformities. Soft Tissues: Soft tissues overlying the chest wall are unremarkable. IMPRESSION: 1. No evidence of consolidation/collapse. 2. No pleural effusion bilaterally. 3. The previously seen opacification in the right lower zone is not identified on the current examination. Electronically signed by Arcadio Johnson 10-09-2024 02:22 AM
--- NOTE | 2024-10-09 02:52 | CT Scan Report ---
EXAM: CT abd pelvis IV con only CLINICAL HISTORY: ruq epigastric luq pain TECHNIQUE: Multiple contiguous axial images were obtained from the level of diaphragm to the pubis symphysis. This study was acquired after the IV administration of iodinated contrast material, given the patients indications for the examination. If IV contrast material had not been administered, the likelihood of detecting abnormalities relevant to the patients condition would have been substantially decreased. Coronal and sagittal reformatted images were generated and reviewed to improve anatomic localization and optimize lesion detection. CT scan was performed according to ALARA (as low as reasonable achievable). COMPARISON: No FINDINGS: The visualized lung bases show ground glass densities and septal thickening in bilateral lower lobes. ABDOMEN/PELVIS: The liver is normal in size and attenuation. Calcified granuloma of size 6.5mm along segment VII of liver. Few small hepatic cysts. There is no intra or extrahepatic biliary ductal dilatation. Hepatic vasculature is patent. The gallbladder is unremarkable. The spleen, pancreas, and adrenal glands are unremarkable. Few small hypodense lesions in left adrenal gland. The kidneys are normal in size and attenuation. There is no hydronephrosis. Mild left perinephric fat stranding. Few small bilateral renal cortical cysts and left renal sinus cysts. No renal calculi or renal masses are identified. The ureters are normal in caliber and no ureteral calculi are seen. The bladder is normal in contour. Mild pneumoperitoneum. Few small free air foci along the pylorus of stomach. No evidence of focal or diffuse bowel wall thickening or evidence of bowel obstruction is seen. The appendix is visualized in the right lower quadrant and appears within normal limits. No adenopathy or fluid collections are seen. The aorta is normal in caliber. No aggressive appearing osseous lesions are identified. Omental fat stranding along the greater curvature of stomach and along the ascending colon in right paracolic region. Diffuse pelvic wall fat stranding. Generalized osteopenia with anterior wedge compression of T11 and T12 vertebral body. IMPRESSION: 1. Mild pneumoperitoneum with few small free air foci along the pylorus of stomach. 2. Omental fat stranding along the greater curvature of stomach and along the ascending colon in right paracolic region. 3. Diffuse pelvic wall fat stranding. OBX.5.1OBX.5.1.1 These findings are likely suggestive of either iatrogenic pneumoperitoneum, omental /OBX.5.1.1OBX.5.1.2 pelvic wall fat stranding (Suggest- Correlation with surgical history if any) or focal small rupture of pylorus of stomach with resultant mild pneumoperitoneum./OBX.5.1.2/OBX.5.1 1. Mild left perinephric fat stranding. Few small bilateral renal cortical cysts and left renal sinus cysts. 2. Calcified granuloma along segment VII of liver. 3. Few small hepatic cysts. 4. Few small hypodense lesions in left adrenal gland. 5. Generalized osteopenia with anterior wedge compression of T11 and T12 vertebral body. Electronically signed by Taiwo Mercado 10-09-2024 02:51 AM
[2024-10-09] MEDS: metroNIDAZOLE 500 MG/100 ML BAG IV STA (03:11)
[2024-10-09] MEDS ORDERED: ATROPINE SULFATE 0.1 MG/ML 10ML SYR IV PRN ×2 (03:23→05:21)
[2024-10-09] MEDS ORDERED: ONDANSETRON INJ 2 MG/ML 2 ML VIAL IV PRN ×3 (03:23→08:13)
[2024-10-09] MEDS ORDERED: HYDROmorphone INJ 2 MG/ML SYR/VIAL IV PRN ×2 (03:23→05:21)
[2024-10-09] MEDS ORDERED: PROMETHAZINE HCL 6.25 MG in SODIUM CHLORIDE 0.9% 50 ML IV PRN ×2 (03:23→05:21)
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
[2024-10-09 04:02] LABS: INR 1.0 (0.9-1.1); Partial Thromboplastin Time 21 Seconds (21-31); Prothrombin Time 10.9 Seconds (9.0-12.0)
[2024-10-09] MEDS: CIPROFLOXACIN / D5W 400 MG/200 ML BAG IV STA (04:14)
[2024-10-09] MEDS ORDERED: PROPOFOL IV EMULSION 10 MG/ML 20 ML VIAL IV ONE (04:21)
[2024-10-09] MEDS ORDERED: LIDOCAINE 2% 2 ML VIAL/AMP(20MG/ML) INFIL ONE (04:21)
[2024-10-09] MEDS ORDERED: ROCURONIUM BROMIDE 10 MG/ML 5 ML VIAL IV ONE (04:21)
[2024-10-09] MEDS ORDERED: MIDAZOLAM HCL 1 MG/ML 2ML VIAL ONE (04:24)
[2024-10-09] MEDS ORDERED: SUGAMMADEX SODIUM 200 MG/2 ML VIAL IV ONE (04:25)
[2024-10-09] MEDS ORDERED: ONDANSETRON INJ 2 MG/ML 2 ML VIAL ONE ×2 (04:25→05:14)
[2024-10-09] MEDS ORDERED: DEXAMETHASONE SOD INJ 4 MG/ML VIAL ONE ×2 (04:25→05:14)
[2024-10-09] MEDS: BUPIVACAINE/EPINEPHRINE 0.5% MPF 1:200,000 30 ML VIAL ONE (06:07)
[2024-10-09] MEDS: TISSEEL FIBRIN SEALANT 4ML TOP ONE (06:08)
--- NOTE | 2024-10-09 06:20 | Operative Report ---
PG Post Operative Report Pre & Post Diagnosis Operation Date: 10/09/24 04:00 <No data on this case meets the specified criteria> Pre-op diagnosis: perforated viscous post op diagnosis: perforated gastric ulcer I identified the patient and participated in the time-out.: Yes Procedure Operation Date: 10/09/24 04:00 Actual Procedures p Laparoscopic Operative(Not Applicable) ; oversew of perforated gastric ulcer; chucho patch; abdominal washout- Saad Phelps DO Surgeon Saad Phelps DO Traffic Signal Supervisor Maintenance parvin Choi Estimated Blood Loss 10 Findings Consistent with Post-Op Diagnosis Specimens fluid for gram stain/culture Description of Procedure After informed consent was obtained the patient was taken the operating room and placed in supine position. After successful intubation a Rothman catheter was placed and the abdomen was sterilely prepped and draped in usual fashion. A supraumbilical incision was made with an 11 blade scalpel and carried down th rough the soft tissue using cautery. The anterior fascia was opened using cautery and two #0 Vicryl stay sutures were placed. Peritoneum was elevated with hemostats and incised under direct vision using a Metzenbaum scissor. We immediately encountered purulent fluid. There was no foul odor. A sample was taken and sent for Gram stain and culture. A finger sweep was performed. A 12 mm Castle trocar was placed and the abdomen was insufflated to 18 mmHg. Laparoscope was inserted. The entire abdomen primarily in the upper abdomen was coated with bilious fluid. A right upper quadrant 5 mm port and a right mid abdominal 12 mm port were placed under direct vision. The we had anesthesia placed an NG tube. I began by suctioning irrigating out all the purulent fluid. I was able to readily identify a small perforation on the anterior surface of the distal stomach. There was no obvious mass or other abnormality. I used 3-0 Polysorb in simple erupted fashion to close this defect with serosal and mucosal layers. Once I had the defect completely closed I then sprayed Tisseel sealant over top of the repair. Finally I pulled up a piece of omentum and secured it to the proximal stomach using 2-0 Tycron as a Chucho patch. I used about 4 L of sterile saline to irrigate the upper abdomen as well as pelvis. No other gross abnormalities were identified. 219 [place] Tony drains were used 1 was placed in the right upper quadrant and 1 into the pelvis. They are brought out through the trocar sites and secured to the skin using 2-0 silk. The camera port was removed. The fascia was closed using 0 Vicryl in [id number] fashion. The wound was irrigated and closed using 4-0 Monocryl. Marcaine with epinephrine was injected around the incisions for postoperative analgesia and skin glue used as a dressing. Patient was awakened extubated and transferred recovery in guarded condition. My physician assistant construction superintendent was present the entire case was instrumental helping to access the abdomen, running the camera during my procedure, wound closure and dressing placement. I attest to the content of the Intraoperative Record and any orders documented therein. Any exceptions are noted below.
--- NOTE | 2024-10-09 07:07 | Anesthesiology Progress Note ---
Date of Service October 09, 2024 Anesthesia Post Procedure Vital Signs Vital Signs: Temp Pulse Pulse Resp BP BP Pulse Ox 10/09/24 06:51 35.5 C L 86 20 154/79 H 99 10/09/24 06:41 86 21 120/68 99 10/09/24 06:31 35.5 C L 88 25 H 137/88 100 10/09/24 04:12 90 22 164/86 H 97 10/09/24 03:00 88 24 172/96 H 97 10/09/24 02:00 96 H 20 164/94 H 97 10/09/24 01:44 88 20 168/80 H 96 10/09/24 01:29 90 22 177/99 H 95 10/09/24 01:07 93 H 10/09/24 00:54 36.7 C 93 H 20 176/86 H 98 O2 Del Method O2 Flow Rate 10/09/24 06:51 Room Air 10/09/24 06:41 Oxymask 2 10/09/24 06:31 Oxymask 4 10/09/24 04:12 10/09/24 03:00 10/09/24 02:00 10/09/24 01:44 10/09/24 01:29 10/09/24 01:07 10/09/24 00:54 Room Air Pain Intensity Abdomen: Pain Intensity: 6 Transfer of Care Handoff Completed per policy Notes Mental Status: alert / awake / arousable and participated in evaluation Patient Amnestic to Procedure: Yes Nausea / Vomiting: adequately controlled Pain: adequately controlled Airway Patency, RR, SpO2: stable & adequate BP & HR: stable & adequate Hydration State: stable & adequate Anesthetic Complications: no major complications apparent
--- NOTE | 2024-10-09 08:42 | XRay Report ---
EXAM: XR KUB/Abdomen 1 view CLINICAL HISTORY: ngt placement TECHNIQUE: Radiograph of kub/abdomen was acquired. COMPARISON: none FINDINGS: Nasogastric tube insitu with tip seen at gastrooesophageal junction , needs to be repositioned by atleast 10cm caudally Non-obstructive, non-specific bowel gas pattern. No significant air fluid levels. No obvious evidence of air under diaphragm. No obvious radio opacity overlying kidneys/ureters/urinary bladder. No obvious organomegaly. Bony shadows appear unremarkable. IMPRESSION: 1. No acute abdominal abnormality. 2. Nasogastric tube insitu with tip seen at gastrooesophageal junction , needs to be repositioned by atleast 10cm caudally 3. Drain tube insitu in right side of abdomen with tube tip seen in right upper quadrant (new finding compared to CT dated October 09 2024 and note made of right subdiaphragmatic collection in that study) Electronically signed by Taiwo Mercado 10-09-2024 08:41 AM
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
[2024-10-09] MEDS ORDERED: DEXTROSE 50% 50 ML SYRINGE IV PRN (08:59)
[2024-10-09] MEDS ORDERED: GLUCOSE 40% GEL 15 GM TUBE PO PRN (08:59)
[2024-10-09] MEDS ORDERED: GLUCAGON FOR INJ 1 MG VIAL SQ PRN (08:59)
[2024-10-09] MEDS ORDERED: GLUCOSE 10 TAB/TUBE PO PRN (08:59)
[2024-10-09] MEDS ORDERED: CARBOHYDRATES FOR HYPOGLYCEMIA PO PRN (08:59)
[2024-10-09] MEDS: PANTOprazole 40 MG/10 ML SYR IV SCH (09:08)
[2024-10-09] MEDS: metroNIDAZOLE 500 MG/100 ML BAG IV SCH (09:09)
[2024-10-09] MEDS: SODIUM CHLORIDE 0.9% 1,000 ML IV SCH (09:09)
[2024-10-09 09:32] LABS: Hematocrit (blood only) 26.0 % (37.0-47.0); Hemoglobin 8.1 g/dl (12.0-16.0); Mean Corpuscular Hemoglobin 28.0 pg (25.0-34.0); Mean Corpuscular Volume 90.0 fL (80.0-100.0); Platelet Count 258 K/uL (130-400); RDW Standard Deviation 52.6 fL (36.4-46.3); Red Blood Count 2.89 M/uL (4.20-5.40); White Blood Count 23.63 K/ul (4.8-10.8)
[2024-10-09 09:33] LABS: Immature Granulocytes # (auto) 0.14 K/uL (0.01-0.20); Immature Granulocytes % (auto) 0.6 %; Polychromasia 1+
[2024-10-09] MEDS ORDERED: Nursing to Pharmacy Communication SCH (09:45)
[2024-10-09 09:59] LABS: Alanine Aminotransferase 70.0 U/L (7-52); Albumin Globulin Ratio 1.8 (0.9-2); Alkaline Phosphatase 61.0 U/L (34-104); Anion Gap 6.0 (3-11); Bilirubin,Total 0.6 mg/dl (0.2-1.0); Blood Urea Nitrogen 29.0 mg/dl (6-23); Calcium 7.9 mg/dl (8.6-10.3); Carbon Dioxide 22.0 mmol/L (21-32); Chloride 113.0 mmol/L (98-107); Creatinine Clr Calc Pharmacy 54.4 ml/min; Ferritin 15.7 ng/ml (8-388); Globulin 2.1 gm/dl (2.5-4.0); Glucose 166.0 mg/dl (70-99(Fasting)); Iron 10.0 mcg/dl (35-150); Magnesium 2.0 mg/dl (1.7-2.4); Potassium 3.6 mmol/L (3.5-5.1); Sodium 141.0 mmol/L (136-145); Total Iron Binding Cap Calc 356.0 mcg/dl (250-450); Total Protein 5.8 gm/dl (6.0-8.3); Transferrin 254.0 mg/dl (200-360); Transferrin (FE) Percent Satur 3.0 % (15-50)
[2024-10-09] MEDS: NSS + 20MEQ KCL 20 MEQ/1,000 ML BAG IV SCH (10:49)
[2024-10-09] MEDS: IRON SUCROSE 300 MG in SODIUM CHLORIDE 0.9% 250 ML IV SCH (11:28)
[2024-10-09] MEDS ORDERED: INSULIN ASPART PER UNIT CHARGE SC SCH (11:30)
[2024-10-09] MEDS: INSULIN ASPART PER UNIT CHARGE SC SCH (12:08)
[2024-10-09] MEDS: MoRPHine SULFATE 4 MG/ML 1 ML CARP\\VIAL IV PRN (14:49)
[2024-10-09] MEDS: CIPROFLOXACIN / D5W 400 MG/200 ML BAG IV SCH (15:00)
[2024-10-09] MEDS: MoRPHine SULFATE 2 MG/ML CARP IV PRN (20:33)
--- NOTE | 2024-10-10 03:56 | Surgery Progress Note ---
Date of Service October 10, 2024 Assessment & Plan (1) Pneumoperitoneum: Plan: Patient is status post laparoscopic repair of perforated gastric ulcer on 10/09/2024 (postop day #1) Continue analgesics as needed Continue NG tubeconsideration can be given to removing this once patient has return of bowel function Continue n.p.o. statusthis will continue until patient is felt to be suitable to undergo swallowing evaluation to evaluate the status of her surgical repair Continue intravenous fluids while patient is n.p.o. Encourage ambulation Operative culture/Gram stain has thus far showing gram-positive cocci with further identification and sensitivities to follow Continue antibiotics in form of Cipro and Flagyl Once patient is more well I will consider removing Rothman catheter Continue VADIM drains to self suction Continue PPI Check a.m. labs when available SCDs are in place for DVT prevention, consider adding chemical means if patient's laboratories are stable as above. doing as expected. VADIM's both serous may consiser PPN tomorrow will plan for UGI likely . Keep ngt may have sips/ice for comfort. Admission and Anticipated Discharge Date Admission Date: October 09, 2024 Subjective Patient is currently sitting in bed. She notes that she presently feels comfortable. She denies any nausea or vomiting since her surgery. Since surgery she has not passed any flatus or had a bowel movement yet. She does note some tenderness in her abdomen near her surgical incisions. She denies any fevers, shakes, or chills. She notes that she has not ambulated since her surgery. Physical Exam Gastrointestinal (Abdomen): Abdomen is soft with minimal distention. Patient has [address] draining serous fluid. Remaining surgical incision is clean, dry, intact. Patient has expected tenderness near her surgical incisions. NG tube remains in place. Results & Data Vital Signs (Past 12 Hours) Vital Signs Temp Pulse Resp BP Pulse Ox O2 Del Method 10/09/24 23:55 37.0 C 102 H 18 168/87 H 95 Room Air 10/09/24 19:19 36.7 C 97 H 18 137/85 94 Room Air PG Care Time/CCT Total # of Minutes Spent Total Time Spent with Patient: Total time spent is greater than 50% in coordination of care (as documented) at patient's floor/unit and/or counseling patient: Coding Level of Care Code 89308 Post Operative Follow-Up Diagnoses Pneumoperitoneum K66.8
[2024-10-10] MEDS: ACETAMINOPHEN 1,000 MG/100 ML VIAL IV PRN (04:21)
[2024-10-10 06:52] LABS: Hematocrit (blood only) 23.8 % (37.0-47.0); Hemoglobin 7.4 g/dl (12.0-16.0); Immature Granulocytes # (auto) 0.27 K/uL (0.01-0.20); Immature Granulocytes % (auto) 1.2 %; Mean Corpuscular Hemoglobin 27.9 pg (25.0-34.0); Mean Corpuscular Volume 89.8 fL (80.0-100.0); Platelet Count 258 K/uL (130-400); RDW Standard Deviation 54.5 fL (36.4-46.3); Red Blood Count 2.65 M/uL (4.20-5.40); White Blood Count 21.86 K/ul (4.8-10.8)
[2024-10-10 07:23] LABS: Anion Gap 4 (3-11); Blood Urea Nitrogen 26 mg/dl (6-23); Calcium 8.0 mg/dl (8.6-10.3); Carbon Dioxide 22 mmol/L (21-32); Chloride 115 mmol/L (98-107); Creatinine Clr Calc Pharmacy 56.5 ml/min; Glucose 155 mg/dl (70-99(Fasting)); Sodium 141 mmol/L (136-145)
[2024-10-10 07:26] LABS: Alanine Aminotransferase 44 U/L (7-52); Alkaline Phosphatase 57 U/L (34-104); Bilirubin,Total 0.6 mg/dl (0.2-1.0); Magnesium 2.1 mg/dl (1.7-2.4); Total Protein 5.5 gm/dl (6.0-8.3)
[2024-10-10 07:38] LABS: Polychromasia 1+
[2024-10-10 07:47] LABS: Folate (Folic Acid),Ser orPlas 5.22 ng/ml (>5.38)
[2024-10-10 07:48] LABS: Vitamin B12 339.0 pg/ml (180-914)
[2024-10-10 08:05] LABS: Potassium 4.0 mmol/L (3.5-5.1)
--- NOTE | 2024-10-10 08:23 | Hospitalist Progress Note ---
Date of Service October 10, 2024 Assessment & Plan (1) Pneumoperitoneum: (2) Perforated gastric ulcer: (3) Diabetes mellitus: (4) Folate deficiency: Plan Hospitalist consulted for medical management/DM management in 74yo presenting with abdominal pain and found to have pneumoperitoneum on imaing and taken emergently to OR for ex-lap/evaluation by Dr Phelps this morning and found to have perforated gastric ulcer Note on meloxicam on home med list as well as aspirin, no PPI/H2 and was started on ASPIRIN NEW on August 23 (when patient with start of symptoms) then started steroid dose pack on August 25 for back pain and suspect was start of current issue. #Pneumoperitoneum #Perforated Gastric Ulcer Hgb 8.6 from prior 12.8 found to have Pneumoperitoneum with few small free air foci along pylorus with diffuses pelvic wall fat stranding, concerns for small rupture of pylorus of stomach w/ resultant mild pneumoperitoneum Surgery took to OR 10/09 emergently s/p ex lap; oversew of perforated gastric ulcer; milagro patch; abdominal washout with Dr Phelps 10/09. EBL 10cc Peritoneal ccx pending Protonix IV BID continued Abx: Cipro/Flagyl IV -Monitor if any worsening/cx to escalate to Zosyn if needed but WBC 23k post-op improved to 21.8k, no blood cx obtained on admission but has been afebrile Hgb 8.4--> 8.1 post-op and continues on IVF (added Kcl) and currently 7.4 and suspect 2nd to dilution from IVF but checked anemia labs as below/replacent ordered Pain control, antiemetics as needed Continues NPO, NGT in place Speech to see in AM to see if safe to feed Avoid Celebrex as discussed w/ patient, aspirin on hold Monitor labs/exam on repeat #Anemia- suspect acute drop 2nd to above in setting aspirin/celebrex and prednisone taper but w/ normal MCV checked iron studies/B12/folate Iron studies LOW, Venofer 300mg IV x 3 ordered B12 checked and low normal 300s, IM ordered, convert to PO when able Folate checked and LOW, IV ordered, convert to PO when able Aspirin/Celebrex on HOLD Type/screen ordered Fecal occult ordered for completeness CBC in AM- Transfuse if needed if sx/significant drop but no JUDD/BP stable and no lightheaded/dizziness, CP or Sob reported at this time #DM II - A1c 6.3 in July, sliding scale to be ordered, consider adding D5 to IVF pending chemistries if needed but no anion gap/issues at this time Only on metformin daily which has been appropriately held BSG checks, sliding scale insulin Adjustment as needed #Mood/Insomnia- hold home phentermine on for weight loss, make ativan available HS as needed *Defer lasix at this time -- takes prn, does have some LE edema but given NPO status will monitor to resume. On RA at present. DVT proph: SCDs ordered/in place, ambulation encouraged. Chemoproph contraindicated w/ above presentation Dispo: continued inpatient stay Thank you for allowing hospitalist service to participate in the care of Ms Saxena. Will follow along-please call with any questions/concerns. Admission and Anticipated Discharge Date Admission Date: October 09, 2024 Supervising Physician Co-Signing Physician Notes The patient was not seen by me. The chart was reviewed. Case discussed with SENTHIL Watt. Agree with assessment and plan Subjective Evaluated this morning, resting in bed. Yet to be OOB, encouraged this afternoon for lunch/dinner. Pain controlled at present, NGT/gutierrez in place. AVDIM drains serous drainage but some blood tinge to inferior VADIM. Hgb low but not off far from admit, denies CP/SOB. Plans for speech eval in AM to see if able to feed/remove NGT but remains NPO at present. Questions/concerns addressed at this time. Physical Exam Physical Exam: General: 74yo female sitting up in bed, NAD, reports "still being here" HEENT: NGT to nares, mm stable/improved, trachea midline Resp: even/unlabored, no wheezing/rales, on room air CV: regular rate/rhythm, faint systolic murmur but no rub/gallop, trace-1+ bilateral edema, SCDs in place, calves nontender GI: slow BS, slightly distended, appropriately tender to incisions, dressing to R abd intact, VADIM x 2 serous drainage, some blood streak to inferior, umbilical incision looks good : gutierrez with clear yellow urine MSK/Neuro: not confused, answering questions appropriately, follows commands Psych: AOx3, cooperative/pleasant during encounter Results & Data Results & Data Vital Signs (Past 12 Hours) Vital Signs Temp Pulse Resp BP Pulse Ox O2 Del Method 10/10/24 07:07 36.7 C 93 H 18 170/84 H 95 Room Air 10/10/24 04:20 36.9 C 102 H 18 155/92 H 94 Room Air 10/09/24 23:55 37.0 C 102 H 18 168/87 H 95 Room Air Laboratory Results 10/10/24 10/10/24 10/10/24 Range/Units 07:32 06:09 05:37 WBC 21.86 H (4.8-10.8) K/ul RBC 2.65 L (4.20-5.40) M/uL Hgb 7.4 L (12.0-16.0) g/dl Hct 23.8 L (37.0-47.0) % MCV 89.8 (80.0-100.0) fL MCH 27.9 (25.0-34.0) pg MCHC 31.1 L (32.0-36.0) g/dL RDW Std Deviation 54.5 H (36.4-46.3) fL RDW Coeff of Francia 17.1 H (11.5-14.5) % Plt Count 258 (130-400) K/uL MPV 9.9 (9.4-12.4) fL Immature Gran % (Auto) 1.2 % Neut % (Auto) 89.1 % Lymph % (Auto) 3.8 % [place] % (Auto) 5.8 % Eos % (Auto) 0.0 % Baso % (Auto) 0.1 % Neut # (Auto) 19.47 H (1.40-6.50) K/uL Lymph # (Auto) 0.83 L (1.20-3.40) K/uL [place] # (Auto) 1.27 H (0.11-0.59) K/uL Eos # (Auto) 0.00 (0.00-0.50) K/uL Baso # (Auto) 0.02 (0.00-0.20) K/uL Immature Gran # (Auto) 0.27 H (0.01-0.20) K/uL Absolute Nucleated RBC 0.02 (0.00-0.12) K/uL Nucleated RBC % (auto) 0.1 % Polychromasia 1+ Sodium 141 (136-145) mmol/L Potassium 4.0 TNP Chloride 115 H (98-107) mmol/L Carbon Dioxide 22 (21-32) mmol/L Anion Gap 4 (3-11) BUN 26 H (6-23) mg/dl Creatinine 0.77 (0.6-1.2) mg/dl Est Cr Clr Drug Dosing 56.5 ml/min eGFR 81.40 BUN/Creatinine Ratio 33.8 H (10-20) Glucose 155 H (70-99(Fasting)) mg/dl POC Glucose 164 H (70-99) mg/dl Calcium 8.0 L (8.6-10.3) mg/dl Magnesium 2.1 (1.7-2.4) mg/dl Total Bilirubin 0.6 (0.2-1.0) mg/dl Direct Bilirubin 0.1 TNP AST 32 (13-39) U/L ALT 44 (7-52) U/L Alkaline Phosphatase 57 (34-104) U/L Total Protein 5.5 L (6.0-8.3) gm/dl Albumin 3.3 L (3.4-5.0) gm/dl Vitamin B12 339 (180-914) pg/ml Folate 5.22 L (>5.38) ng/ml 10/09/24 10/09/24 10/09/24 Range/Units 23:50 17:48 12:06 WBC (4.8-10.8) K/ul RBC (4.20-5.40) M/uL Hgb (12.0-16.0) g/dl Hct (37.0-47.0) % MCV (80.0-100.0) fL MCH (25.0-34.0) pg MCHC (32.0-36.0) g/dL RDW Std Deviation (36.4-46.3) fL RDW Coeff of Francia (11.5-14.5) % Plt Count (130-400) K/uL MPV (9.4-12.4) fL Immature Gran % (Auto) % Neut % (Auto) % Lymph % (Auto) % [place] % (Auto) % Eos % (Auto) % Baso % (Auto) % Neut # (Auto) (1.40-6.50) K/uL Lymph # (Auto) (1.20-3.40) K/uL [place] # (Auto) (0.11-0.59) K/uL Eos # (Auto) (0.00-0.50) K/uL Baso # (Auto) (0.00-0.20) K/uL Immature Gran # (Auto) (0.01-0.20) K/uL Absolute Nucleated RBC (0.00-0.12) K/uL Nucleated RBC % (auto) % Polychromasia Sodium (136-145) mmol/L Potassium Chloride (98-107) mmol/L Carbon Dioxide (21-32) mmol/L Anion Gap (3-11) BUN (6-23) mg/dl Creatinine (0.6-1.2) mg/dl Est Cr Clr Drug Dosing ml/min eGFR BUN/Creatinine Ratio (10-20) Glucose (70-99(Fasting)) mg/dl POC Glucose 138 H 143 H 169 H (70-99) mg/dl Calcium (8.6-10.3) mg/dl Magnesium (1.7-2.4) mg/dl Total Bilirubin (0.2-1.0) mg/dl Direct Bilirubin AST (13-39) U/L ALT (7-52) U/L Alkaline Phosphatase (34-104) U/L Total Protein (6.0-8.3) gm/dl Albumin (3.4-5.0) gm/dl Vitamin B12 (180-914) pg/ml Folate (>5.38) ng/ml PG Care Time/CCT Total # of Minutes Spent Total Time Spent with Patient: Total time spent is greater than 50% in coordination of care (as documented) at patient's floor/unit and/or counseling patient: Coding Level of Care Code 11182 SUB INP/OBS CARE 3/50MIN Diagnoses Pneumoperitoneum K66.8 Perforated gastric ulcer K25.5 Diabetes mellitus E11.9 Folate deficiency E53.8
[2024-10-10] MEDS: CYANOCOBALAMIN 1000 MCG/ML VIAL IM SCH (09:17)
[2024-10-10] MEDS: FOLIC ACID 1 MG in SYRINGE 9.8 ML IV SCH (09:18)
[2024-10-10] MEDS: MoRPHine SULFATE 4 MG/ML 1 ML CARP\\VIAL IV PRN (19:35)
--- NOTE | 2024-10-11 08:19 | Surgery Progress Note ---
Date of Service October 11, 2024 Assessment & Plan (1) Perforated gastric ulcer: Plan: POD#2 laparoscopic repair of perforated gastric ulcer labs pending this AM. vitals are stable expected post op discomfort, but manageable. VADIM drains serous Continue NPO/ice chips with NGT in place, will plan on UGI/leak test later this week On IV cipro/flagyl and PPI Will start PPN Encourage ambulation and pulmonary toilet Pt requesting to keep gutierrez one more day Start DVT prophylaxis if hbg stable as above. labs pending. some confusion earlier likely secondary to ativan. OOB /ambulate today. will start PPN tentatively planning UGI wed Admission and Anticipated Discharge Date Admission Date: October 09, 2024 Subjective Patient feeling okay. Feels like she is out of touch with reality of what is going on. Otherwise she has expected post op pain but it is manageable. No nausea/vomiting. No bowel function thus far. Prefers to keep her catheter in one more day if able. Physical Exam Physical Exam: awake, no distress Gastrointestinal (Abdomen): Inspection/Auscultation: + abdominal surgical incision (surgical dressings c/d/i) and + abdominal surgical drain present (JPs serous) expected post op discomfort Results & Data Vital Signs (Past 12 Hours) Vital Signs Temp Pulse Resp BP BP Pulse Ox O2 Del Method 10/11/24 07:22 97.5 F L 87 16 178/93 H 96 Room Air 10/11/24 02:56 97.7 F 93 H 18 177/91 H 93 Room Air PG Care Time/CCT Total # of Minutes Spent Total Time Spent with Patient: Total time spent is greater than 50% in coordination of care (as documented) at patient's floor/unit and/or counseling patient: Coding Level of Care Code 28148 Post Operative Follow-Up Diagnoses Perforated gastric ulcer K25.5
[2024-10-11 08:51] LABS: Hematocrit (blood only) 24.0 % (37.0-47.0); Hemoglobin 7.4 g/dl (12.0-16.0); Immature Granulocytes # (auto) 0.92 K/uL (0.01-0.20); Immature Granulocytes % (auto) 5.0 %; Mean Corpuscular Hemoglobin 28.1 pg (25.0-34.0); Mean Corpuscular Volume 91.3 fL (80.0-100.0); Platelet Count 278 K/uL (130-400); RDW Standard Deviation 55.4 fL (36.4-46.3); Red Blood Count 2.63 M/uL (4.20-5.40); White Blood Count 18.34 K/ul (4.8-10.8)
[2024-10-11] MEDS: ACETAMINOPHEN 1,000 MG/100 ML VIAL IV SCH (08:57)
[2024-10-11 09:15] LABS: Alanine Aminotransferase 31.0 U/L (7-52); Albumin Globulin Ratio 1.3 (0.9-2); Alkaline Phosphatase 57.0 U/L (34-104); Anion Gap 4.0 (3-11); Bilirubin,Total 0.5 mg/dl (0.2-1.0); Blood Urea Nitrogen 17.0 mg/dl (6-23); Calcium 8.1 mg/dl (8.6-10.3); Carbon Dioxide 25.0 mmol/L (21-32); Chloride 111.0 mmol/L (98-107); Creatinine Clr Calc Pharmacy 70.1 ml/min; Globulin 2.4 gm/dl (2.5-4.0); Glucose 110.0 mg/dl (70-99(Fasting)); Magnesium 2.1 mg/dl (1.7-2.4); Potassium 3.5 mmol/L (3.5-5.1); Sodium 140.0 mmol/L (136-145); Total Protein 5.5 gm/dl (6.0-8.3)
[2024-10-11 09:19] LABS: Polychromasia 1+
[2024-10-11] MEDS ORDERED: TPN/PPN CONSULT PHARMACY SCH (09:30)
[2024-10-11 09:35] LABS: Triglycerides 50.0 mg/dl (0-150)
[2024-10-11] MEDS: MoRPHine SULFATE 2 MG/ML CARP IV PRN (11:40)
[2024-10-11] MEDS: POTASSIUM PHOSPHATE 21 MMOL in SODIUM CHLORIDE 0.9% 500 ML IV ONE (11:42)
[2024-10-11] MEDS: LACTATED RINGER'S 1,000 ML IV SCH (11:47)
[2024-10-11] MEDS ORDERED: FLUCONAZOLE 200 MG/100 ML BAG IV SCH ×2 (14:00→15:00)
--- NOTE | 2024-10-11 14:21 | Hospitalist Progress Note ---
Date of Service October 11, 2024 Assessment & Plan (1) Pneumoperitoneum: (2) Perforated gastric ulcer: (3) Diabetes mellitus: (4) Folate deficiency: Plan Hospitalist consulted for medical management/DM management in 74yo presenting with abdominal pain and found to have pneumoperitoneum on imaing and taken emergently to OR for ex-lap/evaluation by Dr Phelps this morning and found to have perforated gastric ulcer #Pneumoperitoneum #Perforated Gastric Ulcer Hgb 8.6 from prior 12.8 found to have Pneumoperitoneum with few small free air foci along pylorus with diffuses pelvic wall fat stranding, concerns for small rupture of pylorus of stomach w/ resultant mild pneumoperitoneum hgb stable at 7.4, phosphorous low at 1.9 s/p repletion. Surgery took to OR 10/09 emergently --> s/p ex lap; oversew of perforated gastric ulcer; milagro patch; abdominal washout with Dr Phelps. EBL 10cc Peritoneal ccx + for bill albicans. Protonix IV BID continued Abx switched from cipro to rocephin + Flagyl. added Diflucan given peritoneal culture results. Originally going to start PPN but held due to fungal infection. Pain control, antiemetics prn NPO, NGT in place Avoid NSAIDs in future. (was taking Meloxicam, aspirin, and steroids at home prior to perf) #Anemia suspect acute drop 2nd to above in setting aspirin/celebrex and prednisone taper but w/ normal MCV checked iron studies/B12/folate Iron studies LOW, Venofer 300mg IV x 3 ordered B12 checked and low normal 300s, IM ordered, convert to PO when able Folate checked and LOW, IV ordered, convert to PO when able Aspirin/Celebrex on HOLD --> consider dc of celebrex indefinitely. Type/screen ordered Fecal occult ordered for completeness CBC in AM- Transfuse if needed if sx/significant drop but no JUDD/BP stable and no lightheaded/dizziness, CP or Sob reported at this time #DM II A1c 6.3 in July, sliding scale to be ordered consider adding D5 to IVF pending chemistries if needed but no anion gap/issues at this time Only on metformin daily which has been appropriately held BSG checks, sliding scale insulin Adjustment as needed #Mood/Insomnia- hold home phentermine on for weight loss, make Ativan available HS as needed *Defer lasix at this time -- takes prn, does have some LE edema but given NPO status will monitor to resume. On RA at present. DVT proph: SCDs ordered/in place, ambulation encouraged. Chemoproph contraindicated w/ above presentation Dispo: continued inpatient stay Thank you for allowing hospitalist service to participate in the care of Ms Saxena. Will follow along-please call with any questions/concerns. Discussed w/ gen surgery 10/11 Admission and Anticipated Discharge Date Admission Date: October 09, 2024 Mercy Myers seen and examined this morning. Reports she is feeling okay today. Physical Exam Constitutional: WD/WN, vitals as above NG tube in place Respiratory: normal respiratory effort Neurologic: PERRL, EOMI, accommodation nl, no face palsy, no dysarthria Psychiatric: A+Ox3, euthymic affect Results & Data Results & Data Vital Signs (Past 12 Hours) Vital Signs Temp Pulse Resp BP BP Pulse Ox O2 Del Method 10/11/24 07:22 36.4 C L 87 16 178/93 H 96 Room Air 10/11/24 02:56 36.5 C 93 H 18 177/91 H 93 Room Air PG Care Time/CCT Total # of Minutes Spent Total Time Spent with Patient: Total time spent is greater than 50% in coordination of care (as documented) at patient's floor/unit and/or counseling patient: Coding Level of Care Code 85545 SUB INP/OBS CARE 3/50MIN Diagnoses Pneumoperitoneum K66.8 Perforated gastric ulcer K25.5 Diabetes mellitus E11.9 Folate deficiency E53.8
[2024-10-11] MEDS: FLUCONAZOLE 200 MG/100 ML BAG IV SCH (15:52)
[2024-10-11] MEDS ORDERED: DEXTROSE 10% 1,000 ML IV PRN (16:00)
[2024-10-11] MEDS ORDERED: [UNRECOGNIZED DRUG - OTHER] IV SCH (16:00)
[2024-10-11] MEDS ORDERED: PERIPHERAL TPN IV SCH (16:00)
[2024-10-11] MEDS ORDERED: CLINOLIPID 20% IV FAT EMULSION 250 ML IV SCH (16:00)
[2024-10-11] MEDS: cefTRIAXone SODIUM 2,000 MG/50 ML BAG IV SCH (18:07)
[2024-10-12] MEDS: STOP CLINOLIPID SCH (01:12)
--- NOTE | 2024-10-12 05:50 | Electrocardiogram Report ---
Test Reason : Blood Pressure : */* mmHG Vent. Rate : 96 BPM Atrial Rate : 96 BPM P-R Int : 136 ms QRS Dur : 90 ms QT Int : 354 ms P-R-T Axes : 47 -10 54 degrees QTcB Int : 447 ms Normal sinus rhythm Normal ECG When compared with ECG of 27-Mar-2024 13:46, No significant change was found Confirmed by Gelacio Ortiz ([id number]) on 10/12/2024 5:50:00 AM Referred By: REFERRED SELF Confirmed By: Gelacio Ortiz
[2024-10-12 08:26] LABS: Hematocrit (blood only) 24.4 % (37.0-47.0); Hemoglobin 7.9 g/dl (12.0-16.0); Mean Corpuscular Hemoglobin 29.0 pg (25.0-34.0); Mean Corpuscular Volume 89.7 fL (80.0-100.0); Platelet Count 318 K/uL (130-400); RDW Standard Deviation 53.0 fL (36.4-46.3); Red Blood Count 2.72 M/uL (4.20-5.40); White Blood Count 15.10 K/ul (4.8-10.8)
--- NOTE | 2024-10-12 08:44 | Surgery Progress Note ---
Date of Service October 12, 2024 Assessment & Plan (1) Perforated gastric ulcer: Plan: POD#3 laparoscopic repair of perforated gastric ulcer WBC 15 (18), Hbg 7.9 (7.4). Some HTN, otherwise vitals stable Pain manageable. VADIM drains serous. Incisions c/d/i Continue NPO/ice chips with NGT in place, will plan on UGI/leak test tomorrow, if negative we will remove NGT and initiate clears On IV fluc/cetriaxone/flagyl. OR cx's growing bill Holding off on PPN given bill in peritoneal fluid, hopefully will be able to start clears tomorrow Ordered for gutierrze removal Encourage OOB and ordered PT/OT Lovenox ordered for DVT prophylaxis Appreciate hospitalists assistance with the patient as above. doing well. VADIM's look good. UGI tomorrow. OOB today. d/c gutierrez. Admission and Anticipated Discharge Date Admission Date: October 09, 2024 Subjective Patient reports pain is tolerable. States she isn't getting good sleep. No nausea/vomiting. Requires reminders of what her next steps in hospitalization will be. Physical Exam Physical Exam: awake, no distress Gastrointestinal (Abdomen): Inspection/Auscultation: + abdominal surgical incision (surgical dressings c/d/i) and + abdominal surgical drain present (JPs serous) Results & Data Vital Signs (Past 12 Hours) Vital Signs Temp Resp BP Pulse Ox O2 Del Method 10/12/24 08:13 Room Air 10/12/24 07:20 98.1 F 16 151/84 H 94 Room Air PG Care Time/CCT Total # of Minutes Spent Total Time Spent with Patient: Total time spent is greater than 50% in coordination of care (as documented) at patient's floor/unit and/or counseling patient: Coding Level of Care Code 97348 Post Operative Follow-Up Diagnoses Perforated gastric ulcer K25.5
[2024-10-12 08:51] LABS: Anion Gap 6.0 (3-11); Calcium 8.1 mg/dl (8.6-10.3); Carbon Dioxide 27.0 mmol/L (21-32); Chloride 104.0 mmol/L (98-107); Immature Granulocytes # (auto) 1.22 K/uL (0.01-0.20); Immature Granulocytes % (auto) 8.1 %; Magnesium 1.8 mg/dl (1.7-2.4); Potassium 3.0 mmol/L (3.5-5.1); RBC Morphology Unremarkable; Sodium 137.0 mmol/L (136-145)
[2024-10-12 08:57] LABS: Blood Urea Nitrogen 10.0 mg/dl (6-23); Creatinine Clr Calc Pharmacy 73.7 ml/min; Glucose 93.0 mg/dl (70-99(Fasting))
[2024-10-12] MEDS: ENOXAPARIN INJ 40 MG/0.4 ML SYR SQ SCH (09:39)
[2024-10-12] MEDS: D5W AND 1/2NSS + 20MEQ KCL 20 MEQ/1,000 ML BAG IV SCH (13:04)
--- NOTE | 2024-10-12 14:01 | Hospitalist Progress Note ---
"Date of Service October 12, 2024 Assessment & Plan (1) Pneumoperitoneum: (2) Perforated gastric ulcer: (3) Diabetes mellitus: (4) Folate deficiency: Plan Lucia is 74yo with PMHX of DMT2, HLD and migraines who presenting with abdominal pain and found to have pneumoperitoneum on imaging and taken emergently to OR for ex-lap/evaluation by Dr Phelps this morning and found to have perforated gastric ulcer. Hospitalist consulted for medical management. #Pneumoperitoneum | Perforated Gastric Ulcer Surgery took to OR 10/09 emergently --> s/p ex lap; oversew of perforated gastric ulcer; milagro patch; abdominal washout with Dr Phelps. EBL 10cc Peritoneal ccx + for bill albicans ( PPN deferred) Protonix IV BID continued Continue rocephin + Flagyl and diflucan Avoid NSAIDs in future. (was taking Meloxicam, aspirin, and steroids at home prior to perf) management primary by surgery- fluids changed to add K repletion #Anemia suspect acute drop 2nd to above in setting aspirin/celebrex and prednisone taper but w/ normal MCV checked iron studies/B12/folate Iron studies LOW, Venofer 300mg IV x 3 ordered B12 checked and low normal 300s, IM ordered, convert to PO when able Folate checked and LOW, IV ordered, convert to PO when able Aspirin/Celebrex on HOLD --> consider dc of celebrex indefinitely. #DM II A1c 6.3 in 07/2024. Home meds: Metformin - HELD BSG checks, sliding scale insulin Fluids change to DR 1/2NSS + KCL with hypokalemia #Mood/Insomnia- hold home phentermine on for weight loss, make Ativan available HS as needed *Defer lasix at this time -- takes prn, does have some LE edema but given NPO status will monitor to resume. On RA at present. Thank you for allowing us to participate in the care of this patient, please reach out with any questions or concerns Admission and Anticipated Discharge Date Admission Date: October 09, 2024 Subjective patient seen sitting up in the chair reports pain has improved, worse when she touches it so she knows not to touch it asking if she can ambulate in the halls and what the next steps of her hospitlization are Review of Systems Review of Systems: All systems reviewed & are unremarkable except as noted in Subjective Physical Exam Physical Exam: General: NAD, VS as above HEENT: NG tube in place Resp: normal respiratory effort, lungs clear to auscultation CV: RRR, no murmur, Abd: normal bowel sounds, soft, mild tenderness to plapation Extremities: Moves all extremities, no edema Neuro: A&O x3, Results & Data Results & Data Vital Signs (Past 12 Hours) Vital Signs Temp Resp BP Pulse Ox O2 Del Method 10/12/24 08:13 Room Air 10/12/24 07:20 98.1 F 16 151/84 H 94 Room Air Laboratory Results cbc and chemistry reviewed PG Care Time/CCT Total # of Minutes Spent Total Time Spent with Patient: Total time spent is greater than 50% in coordination of care (as documented) at patient's floor/unit and/or counseling patient: Coding Level of Care Code 51841 SUB INP/OBS CARE 3/50MIN Diagnoses Pneumoperitoneum K66.8 Perforated gastric ulcer K25.5 Diabetes mellitus E11.9 Folate deficiency E53.8"
[2024-10-13 08:29] LABS: Anion Gap 6.0 (3-11); Blood Urea Nitrogen 7.0 mg/dl (6-23); Carbon Dioxide 30.0 mmol/L (21-32); Chloride 101.0 mmol/L (98-107); Creatinine Clr Calc Pharmacy 68.6 ml/min; Glucose 119.0 mg/dl (70-99(Fasting)); Potassium 3.1 mmol/L (3.5-5.1); Sodium 137.0 mmol/L (136-145)
[2024-10-13 08:30] LABS: Calcium 8.3 mg/dl (8.6-10.3); Magnesium 1.7 mg/dl (1.7-2.4)
[2024-10-13 08:40] LABS: Hematocrit (blood only) 28.4 % (37.0-47.0); Hemoglobin 8.8 g/dl (12.0-16.0); Mean Corpuscular Hemoglobin 27.7 pg (25.0-34.0); Mean Corpuscular Volume 89.3 fL (80.0-100.0); Platelet Count 341 K/uL (130-400); RDW Standard Deviation 51.7 fL (36.4-46.3); Red Blood Count 3.18 M/uL (4.20-5.40); White Blood Count 14.89 K/ul (4.8-10.8)
[2024-10-13] MEDS: POTASSIUM CHLORIDE / WTR 10 MEQ/100 ML PLCT IV SCH (09:01)
[2024-10-13 09:14] LABS: Acanthocytes 1+; Immature Granulocytes # (auto) 1.21 K/uL (0.01-0.20); Immature Granulocytes % (auto) 8.1 %; Ovalocytes 1+; Polychromasia 1+
--- NOTE | 2024-10-13 09:30 | Surgery Progress Note ---
Date of Service October 13, 2024 Assessment & Plan (1) Perforated gastric ulcer: Plan: POD#4 laparoscopic repair of perforated gastric ulcer WBC 14 (15), Hbg 8.8 (7.9). K 3.1 and potassium repletion ordered. Some HTN, otherwise vitals stable We agree with discontinuing the ativan as it may be adding to her confusion Pain manageable. VADIM drains serous Plan on UGI study today to evaluate for a leak, if negative we will remove NGT and start clears On IV fluc/flagyl, ceftriaxone ended. OR cx's growing bill Encourage OOB and ordered PT/OT Lovenox ordered for DVT prophylaxis Appreciate hospitalists assistance with the patient As above. Doing okay. Getting some confusion so we will stop her Ativan. Awaiting upper GI today. Admission and Anticipated Discharge Date Admission Date: October 09, 2024 Subjective Patient states she had another rough night, said she was a little loopy at points. This AM does seem a little confused again and at one point said "thank you for the nice 4 oclock service". Otherwise she does state pain controlled, no nausea/vomiting. Needs ongoing reminders as she questions what the next steps are. Physical Exam Physical Exam: awake, maybe somewhat confused. no distress Gastrointestinal (Abdomen): VADIM x 2 serosang Results & Data Vital Signs (Past 12 Hours) Vital Signs Temp Pulse Resp BP Pulse Ox O2 Del Method 10/13/24 07:28 97.7 F 84 18 162/96 H 98 Room Air PG Care Time/CCT Total # of Minutes Spent Total Time Spent with Patient: Total time spent is greater than 50% in coordination of care (as documented) at patient's floor/unit and/or counseling patient: Coding Level of Care Code 02833 Post Operative Follow-Up Diagnoses Perforated gastric ulcer K25.5
--- NOTE | 2024-10-13 11:30 | Hospitalist Progress Note ---
"Date of Service October 13, 2024 Assessment & Plan (1) Pneumoperitoneum: (2) Perforated gastric ulcer: (3) Diabetes mellitus: (4) Folate deficiency: Plan Lucia is 74yo with PMHX of DMT2, HLD and migraines who presenting with abdominal pain and found to have pneumoperitoneum on imaging and taken emergently to OR for ex-lap/evaluation by Dr Phelps this morning and found to have perforated gastric ulcer. Hospitalist consulted for medical management. #Pneumoperitoneum | Perforated Gastric Ulcer Surgery took to OR 10/09 emergently --> s/p ex lap; oversew of perforated gastric ulcer; milagro patch; abdominal washout with Dr Phelps. EBL 10cc Peritoneal ccx + for bill albicans ( PPN deferred) Protonix IV BID continued Continue Flagyl and Diflucan Avoid NSAIDs in future. (was taking Meloxicam, aspirin, and steroids at home prior to perf) management primary by surgery- fluids changed to add K repletion #Anemia | Acute blood loss anemia suspect acute drop 2nd to above in setting aspirin/celebrex and prednisone taper but w/ normal MCV checked iron studies/B12/folate Iron studies LOW, Venofer 300mg IV x 3 ordered B12 checked and low normal 300s, given IM Folate checked and LOW, received IV doses x 4 Aspirin/Celebrex on HOLD --> consider dc of celebrex indefinitely. #DM II A1c 6.3 in July, 07/2024. Home meds: Metformin - HELD BSG checks, sliding scale insulin Fluids change to 1/2NSS + KCL with hypokalemia #Mood/Insomnia- hold home phentermine on for weight loss, make Ativan available HS as needed Family reports no problems with confusion at home - d/c high dose morphine, add PO option tramdol for when NG tube removed. *Defer lasix at this time -- takes prn, does have some LE edema but given NPO status will monitor to resume. On RA at present. Thank you for allowing us to participate in the care of this patient, please reach out with any questions or concerns. Hospital Medicine will continue to follow. Admission and Anticipated Discharge Date Admission Date: October 09, 2024 Supervising Physician Co-Signing Physician Notes Attending Attestation - Chart reviewed, care plan d/w SENTHIL Pantoja. I agree w/ the ying components of her documentation. Manoj Islas MD Subjective Patient seen lying in bed, appropriate. Knows she is getting a repeat study today. Asked for me to update her brother in law, Al. Minimal abdominal pain Review of Systems Review of Systems: All systems reviewed & are unremarkable except as noted in Subjective Physical Exam Physical Exam: General: NAD, VS as above HEENT: NG tube in place Resp: normal respiratory effort, lungs clear to auscultation CV: RRR, no murmur, Abd: normal bowel sounds, soft, mild tenderness to plapation Extremities: Moves all extremities, no edema Neuro: A&O x3, Results & Data Results & Data Vital Signs (Past 12 Hours) Vital Signs Temp Pulse Resp BP Pulse Ox O2 Del Method 10/13/24 11:24 97.7 F 89 17 146/85 H 99 Room Air 10/13/24 07:28 97.7 F 84 18 162/96 H 98 Room Air Laboratory Results cbc and chemistry reviewed PG Care Time/CCT Total # of Minutes Spent Total Time Spent with Patient: Total time spent is greater than 50% in coordination of care (as documented) at patient's floor/unit and/or counseling patient: Coding Level of Care Code 37130 SUB INP/OBS CARE 3/50MIN Diagnoses Pneumoperitoneum K66.8 Perforated gastric ulcer K25.5 Diabetes mellitus E11.9 Folate deficiency E53.8"
--- NOTE | 2024-10-13 14:00 | Fluoroscopy Report ---
FL upper GI series wo air CLINICAL HISTORY: contrast via ngt, eval for leak s/p gastric perf Fluoroscopy time: 33 seconds. COMPARISON STUDY: None FINDINGS: Nasogastric tube tip is in the distal body of the stomach. Patient swallowed liquid barium without difficulty. Contrast progresses normally through the esophagus and into the stomach. There is no esophageal stricture or significant hiatal hernia. Contrast progresses normally through the stoma ch to the small bowel. No evidence of contrast leak or extravasation seen. IMPRESSION: No leak seen. ACT 112: Negative or not required by law. Electronically signed by: Bassem Meyer M.D. 10/13/2024 1:59 PM
[2024-10-13] MEDS ORDERED: LORazepam 0.5 MG TAB PO PRN (14:49)
[2024-10-13] MEDS ORDERED: ACETAMINOPHEN 500 MG TAB PO PRN (14:50)
[2024-10-13] MEDS ORDERED: Nursing to Pharmacy Communication SCH (16:30)
[2024-10-13] MEDS: INSULIN ASPART PER UNIT CHARGE SC SCH (17:12)
[2024-10-13] MEDS: SUCRALFATE 1 GM/10 ML UDC PO SCH (21:14)
--- NOTE | 2024-10-14 09:47 | Surgery Progress Note ---
Date of Service October 14, 2024 Assessment & Plan (1) Perforated gastric ulcer: Plan: Postoperative day #6 Doing as expected Will advance to full liquids Will remove drains. Possible discharge tomorrow. May need acute rehab Admission and Anticipated Discharge Date Admission Date: October 09, 2024 Subjective Patient seen. Doing okay. Tolerating clear liquid diet. Anxious to go home Physical Exam Physical Exam: Alert no acute distress Abdomen is soft with expected tenderness Both JPs with scant serous output Results & Data Vital Signs (Past 12 Hours) Vital Signs Temp Pulse Resp BP Pulse Ox O2 Del Method 10/14/24 07:45 36.9 C 89 16 157/72 H 96 Room Air PG Care Time/CCT Total # of Minutes Spent Total Time Spent with Patient: Total time spent is greater than 50% in coordination of care (as documented) at patient's floor/unit and/or counseling patient: Coding Level of Care Code 76155 Post Operative Follow-Up Diagnoses Perforated gastric ulcer K25.5
[2024-10-14 12:45] LABS: Hematocrit (blood only) 26.4 % (37.0-47.0); Hemoglobin 8.3 g/dl (12.0-16.0); Mean Corpuscular Hemoglobin 28.3 pg (25.0-34.0); Mean Corpuscular Volume 90.1 fL (80.0-100.0); Platelet Count 303 K/uL (130-400); RDW Standard Deviation 52.4 fL (36.4-46.3); Red Blood Count 2.93 M/uL (4.20-5.40); White Blood Count 15.83 K/ul (4.8-10.8)
[2024-10-14 12:57] LABS: Anion Gap 6.0 (3-11); Blood Urea Nitrogen 9.0 mg/dl (6-23); Calcium 8.0 mg/dl (8.6-10.3); Carbon Dioxide 27.0 mmol/L (21-32); Chloride 104.0 mmol/L (98-107); Creatinine Clr Calc Pharmacy 63.4 ml/min; Glucose 95.0 mg/dl (70-99(Fasting)); Magnesium 1.6 mg/dl (1.7-2.4); Potassium 3.2 mmol/L (3.5-5.1); Sodium 137.0 mmol/L (136-145)
--- NOTE | 2024-10-14 13:24 | Hospitalist Progress Note ---
"Date of Service October 14, 2024 Assessment & Plan (1) Pneumoperitoneum: (2) Perforated gastric ulcer: (3) Diabetes mellitus: (4) Folate deficiency: Plan Lucia is 74yo with PMHX of DMT2, HLD and migraines who presenting with abdominal pain and found to have pneumoperitoneum on imaging and taken emergently to OR for ex-lap/evaluation by Dr Phelps this morning and found to have perforated gastric ulcer. Hospitalist consulted for medical management. #Pneumoperitoneum | Perforated Gastric Ulcer Surgery took to OR 10/09 emergently --> s/p ex lap; oversew of perforated gastric ulcer; milagro patch; abdominal washout with Dr Phelps. EBL 10cc Peritoneal ccx + for bill albicans ( PPN deferred) Continue Flagyl and Diflucan management primary by surgery Recommend d/c meloxicam. Hold ASA for at least 2-4 weeks, defer to PCP on restarting. Recommend daily PPI #Anemia | Acute blood loss anemia suspect acute drop 2nd to above in setting aspirin/celebrex and prednisone taper but w/ normal MCV checked iron studies/B12/folate Iron studies LOW, Venofer 300mg IV x 3 ordered B12 checked and low normal 300s, given IM Folate checked and LOW, received IV doses x 4 #DM II A1c 6.3 in 07/2024. Home meds: Metformin - HELD BSG checks, sliding scale insulin BSG acceptable - resume metformin at discharge #Mood/Insomnia- hold home phentermine on for weight loss, make Ativan available HS as needed Family reports no problems with confusion at home - d/c high dose morphine, add PO option tramdol for when NG tube removed. Thank you for allowing us to participate in the care of this patient, please reach out with any questions or concerns. Hospital Medicine will sign off. Admission and Anticipated Discharge Date Admission Date: October 09, 2024 Subjective Patient seen lying in bed - feeling better after having her drains out was happy to have real food this morning pain is improving Review of Systems Review of Systems: All systems reviewed & are unremarkable except as noted in Subjective Physical Exam Physical Exam: General: NAD, VS as above Resp: normal respiratory effort, lungs clear to auscultation CV: RRR, no murmur, Abd: normal bowel sounds, soft, nontender Extremities: Moves all extremities, no edema Neuro: A&O x3, Results & Data Results & Data Vital Signs (Past 12 Hours) Vital Signs Temp Pulse Resp BP Pulse Ox O2 Del Method 10/14/24 08:50 Room Air 10/14/24 07:45 98.5 F 89 16 157/72 H 96 Room Air Laboratory Results cbc, chemistry and mag reviewed PG Care Time/CCT Total # of Minutes Spent Total Time Spent with Patient: Total time spent is greater than 50% in coordination of care (as documented) at patient's floor/unit and/or counseling patient: Coding Level of Care Code 63721 SUB INP/OBS CARE 3/50MIN Diagnoses Pneumoperitoneum K66.8 Perforated gastric ulcer K25.5 Diabetes mellitus E11.9 Folate deficiency E53.8"
[2024-10-14 13:28] LABS: Immature Granulocytes # (auto) 1.40 K/uL (0.01-0.20); Immature Granulocytes % (auto) 8.8 %; Ovalocytes 1+; Polychromasia 1+
[2024-10-14] MEDS: MAGNESIUM SULFATE / D5W 1 GM/100 ML BAG IV SCH (14:31)
[2024-10-14] MEDS: POTASSIUM CHLORIDE CRTAB 20 MEQ TABCR PO STA (14:31)
[2024-10-14] MEDS: MELATONIN 3 MG TAB PO PRN (23:24)
[2024-10-15 06:31] LABS: Hematocrit (blood only) 25.2 % (37.0-47.0); Hemoglobin 7.8 g/dl (12.0-16.0); Mean Corpuscular Hemoglobin 28.1 pg (25.0-34.0); Mean Corpuscular Volume 90.6 fL (80.0-100.0); Platelet Count 291 K/uL (130-400); RDW Standard Deviation 53.8 fL (36.4-46.3); Red Blood Count 2.78 M/uL (4.20-5.40); White Blood Count 13.02 K/ul (4.8-10.8)
[2024-10-15 06:59] LABS: Anion Gap 6.0 (3-11); Blood Urea Nitrogen 11.0 mg/dl (6-23); Calcium 7.8 mg/dl (8.6-10.3); Carbon Dioxide 26.0 mmol/L (21-32); Chloride 105.0 mmol/L (98-107); Creatinine Clr Calc Pharmacy 68.6 ml/min; Glucose 109.0 mg/dl (70-99(Fasting)); Potassium 3.5 mmol/L (3.5-5.1); Sodium 137.0 mmol/L (136-145)
[2024-10-15 07:01] LABS: Immature Granulocytes # (auto) 1.23 K/uL (0.01-0.20); Immature Granulocytes % (auto) 9.4 %; Polychromasia 1+
[2024-10-15 07:40] VITALS: BP 163/89; PULSE 79; RESP 18; TEMP 97.8; O2SAT 97
--- NOTE | 2024-10-15 08:21 | Surgery Progress Note ---
Date of Service October 15, 2024 Assessment & Plan (1) Perforated gastric ulcer: Plan: s/p repair of perforated gastric ulcer labs stable, WBC 13 (15). Vitals stable abdominal pain controlled. she is tolerated advancing diet- recommend low fiber Incisions c/d/i. VADIM drain removed Plan to d/c to [facility] Appreciate hospitalists help avoid nsaids/aspirin recommend BID PPI and carafate and f/u with us in the office in 1-2 weeks Admission and Anticipated Discharge Date Admission Date: October 09, 2024 Subjective Patient doing fine. Abdominal pain controlled. Tolerating advancing diet, no n/v. + bowel function. Having some L sided ear pain Physical Exam Physical Exam: awake/alert, no distress Respiratory: normal respiratory effort Gastrointestinal (Abdomen): Inspection/Auscultation: + abdominal surgical incision (c/d/i ); abdomen not distended Percussion/Palpation: abdomen soft Results & Data Vital Signs (Past 12 Hours) Vital Signs Temp Pulse Resp BP Pulse Ox O2 Del Method 10/15/24 07:39 97.8 F 79 18 163/89 H 97 Room Air 10/14/24 21:06 97.9 F 75 12 156/78 H 96 Room Air PG Care Time/CCT Total # of Minutes Spent Total Time Spent with Patient: Total time spent is greater than 50% in coordination of care (as documented) at patient's floor/unit and/or counseling patient: Coding Level of Care Code 56324 Post Operative Follow-Up Diagnoses Perforated gastric ulcer K25.5
--- NOTE | 2024-10-18 14:43 | Discharge Summary ---
Date of Service October 15, 2024 Admission HPI Per Admitting Provider This is a 74-year-old female who presented to the emergency department secondary abdominal pain. She said that the abdominal pain began at approximately 11:30 PM on 10/08/2024. She says that the pain is better when she lies still and is worse with certain movements. She has not had any fevers, shakes, or chills. She denies any nausea or vomiting. She notes she has never had abdominal surgery in the past. She notes her most recent oral intake was at approximate 11:30 PM on 10/08/2024. I question patient on whether she utilizes Motrin excessively which she denies. Since arrival to hospital the patient has had labs and imaging which independent reviewed. Chest x-ray showed no evidence of pleural effusion or lung consolidation. A CT scan of the abdomen pelvis showed the patient had mild pneumoperitoneum with some foci of free air along the pylorus of the stomach. Labs including CBC were white blood cell count was normal. Platelet count was normal. Hemoglobin and hematocrit were 8.6 and 28.0. Chemistry profile showed sodium and potassium were normal. The BUN was elevated 36 but the creatinine was normal. There is no elevation of patient's LFTs or lipase. At the time of my interview the patient was resting in bed. She was in no distress but had considerable abdominal pain. Principal Diagnosis perforated gastric ulcer Discharge Exam awake, no distress Respiratory normal respiratory effort Gastrointestinal (Abdomen) Inspection/Auscultation: + abdomen distended and + abdominal surgical incision (c/d/i) Percussion/Palpation: abdomen soft surgical drain removed Discharge Data Allergies Allergy/AdvReac Type Severity Reaction Status Date / Time doxycycline Allergy Intermediate RASH/Headac Verified 10/09/24 01:12 he Penicillins Allergy Intermediate Rash Verified 10/09/24 01:12 Sulfa (Sulfonamide Allergy Intermediate Rash Verified 10/09/24 01:12 Antibiotics) adhesive Allergy Mild RASH/BURN Verified 10/09/24 01:12 WITH BANDAIDS buspirone AdvReac Intermediate Palpitation Verified 10/09/24 01:12 s pesticide AdvReac Intermediate Confusion Verified 10/09/24 01:12 Consultations 10/09/24 03:02 Consult General Surgery Stat 10/09/24 03:47 ED Decision to Admit Stat 10/09/24 08:13 Consult Hospitalist Routine Procedures Performed Operation Date: 10/09/24 04:00 Actual Procedures p Laparoscopic Operative(Not Applicable) - Saad Phelps, DO Ordered Studies 10/09/24 00:47 CT abd pelvis IV con only Stat Hospital Course (1) Perforated gastric ulcer: This is a 74y F who presented to the [facility] ED on 10/09 with abdominal pain and CT scan showing pneumoperitoneum with etiology concerning for it being gastric in nature. She ultimately went to the OR with Dr. Phelps and she underwent a laparoscopic repair of perforated gastric ulcer. The patient tolerated the procedure well, see op note for full details. She recovered in the PACU and was transferred to the medical floor in stable condition with NGT and surgical drain x2 in place. She was kept NPO with NGT in for the next several days to allow her repair time to heal. The hospitalists were consulted during her stay for assistance with medical management. She remained on IV PPI and pain controlled with prn medications. OR cx grew bill and she completed a course of fluc/ceftriaxone/flagyl. On POD#4 she underwent an UGI which ruled out a leak. NGT was then removed and she advanced to clear liquids. She thereafter tolerated a slow diet advancement to low fiber. Her VADIM drains were removed prior to discharge. On 10/15 the patient was deemed stable for rehab as recommended by PT/OT. She left on PPI, carafate, and instructions to avoid NSAIDs and aspirin for now. She was instructed to follow up in the office with Dr. Phelps in 1-2 weeks Total Time Total Time Spent Total Time Spent (In Minutes): 25 Discharge Plan Discharge Items Patient Disposition: Transfer Inpatient Rehab Fac Reason For Visit: GASTRIC ULCER Discharge Diagnosis: diagnostic laparoscopy repair of perforated gastric ulcer Condition on Discharge: Fair Activity: Per Instructions section Lifting: No more than 10 pounds Bathing Comment: may shower; no soaking in tubs/pools x 2 weeks Driving/Machine Use: no driving while on narcotics for pain Non-emergency contact: Surgeon Call non-emergency contact if: you have any medication questions, your symptoms worsen, your pain is not controlled, your pain is worsening, your pain is unusual for you, you have a fever, your temperature is above 101.5, your wound has increased redness, your wound has increased drainage and your wound pain has increased Follow-up/Referrals: BalWander Hutchinson MD [Primary Care Provider] - (Follow up within one week ) Saad Phelps DO [Surgeon] - (please call to schedule follow up in the office in 1-2 weeks ) Diet: Low Fiber Irene Attending Provider Instructions: SPECIAL CARE INSTRUCTIONS: * You have skin glue over your incisions called dermabond. you may shower with this on. It will tend to dissolve and fall off within a couple weeks. Do not pick at the skin glue * Where your surgical drains have been removed you may change the dressings daily with dry gauze/medical tape until no longer leaking fluid and are healed closed. * You may shower.. NO soaking in pools or baths for 2 weeks * No lifting greater than 10lbs. No strenuous exercise until cleared by surgeon. Light walking is accepted. * No driving while taking narcotic pain medication; wait at least 3 days * No drinking alcohol while taking narcotic pain medication * Continue to take a twice daily PPI (proton pump inhibitor) until otherwise directed by the surgeon * AVOID NSAIDS such as ibuprofen, advil, etc products * May use Tylenol over the counter for pain as tolerated. Do not exceed 3grams of Tylenol per 24 hours * Expect some swelling and bruising. * Diet- low fiber diet Call your doctor if: * Temperature above 101 degrees, nausea/vomiting, fever/chills * Pain not relieved by pain medicine ordered * There is increased drainage or redness from any incision * You have any unanswered questions or concerns [phone]. FOLLOW UP VISIT: If not already scheduled, please call the office for a follow-up visit. 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 Tylenol is SAFE to take. Take a proton pump inhibitor everyday to help with coating the lining of the stomach, protonix has been sent to your pharmacy. Pending Studies at Discharge: No Stand-Alone Forms: My Pulse, Smoking Cessation Skilled Items Patient informed of condition?: Yes DNR: No Discharge Level of Care: Acute rehab Communicable Disease: No Discharge Prognosis: Improving Lines: None Urinary Catheter: No Medications and DC Order Prescriptions: New sucralfate [Carafate] 100 mg/mL suspension 1 g PO BID 28 Days Qty: 560 0RF pantoprazole [Protonix] 40 mg tablet,delayed release (DR/EC) 40 mg PO BID 28 Days Qty: 56 0RF tramadol 50 mg tablet 50 mg PO Q6H PRN (Reason: pain, for initial therapy, max 6 tabs/day) Qty: 10 0RF Continued atorvastatin 20 mg tablet 20 mg PO DAILY furosemide 20 mg tablet 20 mg PO DAILY PRN (Reason: does not take) methocarbamol 500 mg tablet 500 mg PO BIDWMEAL PRN (Reason: Low back pain) Qty: 20 0RF metformin 500 mg tablet 500 mg PO HS Qty: 90 1RF Hold Instructions: low A1c Rx Instructions: ON HOLD lorazepam 0.5 mg tablet 0.5 mg PO HS Qty: 30 1RF cyclobenzaprine 10 mg tablet 10 mg PO HS PRN (Reason: MUSCLE SPASMS) Qty: 30 5RF Hold Instructions: Do not take Flexeril/due to methocarbamol Botox 100 unit recon soln 100 unit subcut DIRECTED Rx Instructions: every 3 months sumatriptan succinate [Imitrex] 100 mg Tablet 100 mg PO Q2H PRN (Reason: migraine headache) Qty: 10 0RF Rx Instructions: max 2 tablets in 24 hours. Discontinued meloxicam 15 mg tablet 15 mg PO DAILY PRN (Reason: (Drug) Ingestion) aspirin 81 mg tablet 81 mg PO DAILY Qty: 90 3RF Discharge Orders: Discharge Order (Routine); Ordered 10/15/24 Ordered By: Juliann Rubin/Other Patient Handouts: Low-Fiber Diet Admission Data Admit Date/Time: 10/09/24 06:19 Attending Provider: Saad Phelps Admit Provider: Saad Phelps Primary Care Provider: Wander Howard V. Other Providers: Saad Phelps; [facility]; Fran Chaidez; Gera Rivera; Manoj Islas Other Interventions: Discharge Summary Assessment (RN) Last Done: 10/15/24 12:02 Coding Level of Care Code 47067 IN/OBS DISCH 30 MIN/LESS Diagnoses Perforated gastric ulcer K25.5
== END 2024-10-15 13:14 | DRG 326 ==
LOC: ED 00:38 → OR 04:20 → 3N 06:19
DX: F39 Unspecified mood [affective] disorder; K65.9 Peritonitis, unspecified; K66.8 Other specified disorders of peritoneum; G47.00 Insomnia, unspecified; I10 Essential (primary) hypertension; E66.9 Obesity, unspecified; Z79.82 Long term (current) use of aspirin; D62 Acute posthemorrhagic anemia; E53.8 Deficiency of other specified B group vitamins; K25.5 Chronic or unspecified gastric ulcer with perforation; Z88.0 Allergy status to penicillin; E11.42 Type 2 diabetes mellitus with diabetic polyneuropathy